=== PATIENT | female | born 1945 | race African-American/Black ===

== ENCOUNTER 2017-01-04 03:34 | Inpatient (IN) | payer MEDICARE, OTHER ==
[~2017-01-04] VITALS: Ht 157.5 cm; Wt 83.9 kg
[~2017-01-04 03:34] MED LIST: ALEN70TA3 PO; AMLO10TA2 PO; CETIRIZINE PO; HYDR-965 PO; IBUPROFEN PO; NAPR220C4 PO; POLY255P PO; POTA20TA4 PO
[2017-01-04] MEDS ORDERED: ASPIRIN 325 MG TABLET PO ONE (04:00)
[2017-01-04] MEDS ORDERED: ONDANSETRON PF 4 MG/2 ML VIAL. IV PRN (04:00)
[2017-01-04] MEDS ORDERED: ACETAMINOPHEN 325 MG TABLET. PO PRN (04:00)
[2017-01-04] MEDS ORDERED: NITROGLYCERIN SUBLINGUAL 0.4 MG BOTTLE OF 25. SL PRN (04:00)
--- NOTE | 2017-01-04 04:00 | PHYS DOC ---
Past Medical History Past Medical History: GERD, Hypertension Additional Past Medical Histor: low potassium Past Surgical History: Hysterectomy, Other Additional Past Surgical Histo: exploratory abdominal surgery Alcohol Use: None Drug Use: None Adult General Chief Complaint Chief Complaint: CHEST PAIN [facility] HPI 71-year-old female woke around 0130 hrs. with significant left upper chest pain that does radiate into her back somewhat. She rates it a 6 out of 10. She is in no acute distress. She states the last time she had symptoms similar to this was back in 2001 in which she states she did have a heart catheterization at that time but did not have any cardiac intervention. She states she has history of hypertension but no other major medical problems that she is aware of. She denies any history of heart disease. She denies any shortness of breath. She denies any nausea or vomiting. She denies any dizziness or lightheadedness. She denies any diaphoresis. Review of Systems Review of Systems Constitutional: Denies fever or chills [] Eyes: Denies change in visual acuity, redness, or eye pain [] HENT: Denies nasal congestion or sore throat [] Respiratory: Denies cough or shortness of breath [] Cardiovascular: No additional information not addressed in HPI [] GI: Denies abdominal pain, nausea, vomiting, bloody stools or diarrhea [] : Denies dysuria or hematuria [] Musculoskeletal: Denies back pain or joint pain [] Integument: Denies rash or skin lesions [] Neurologic: Denies headache, focal weakness or sensory changes [] Endocrine: Denies polyuria or polydipsia [] Current Medications Current Medications Current Medications Medications (Trade) Dose Ordered Sig/[facility] Start Time Stop Time Status Last Admin Dose Admin Acetaminophen (Tylenol) 650 mg PRN Q4HRS PRN 01/04/17 04:00 01/05/17 03:59 Aspirin (Jan Aspirin) 325 mg 1X ONCE 01/04/17 04:00 01/04/17 04:02 DC 01/04/17 04:21 325 MG Nitroglycerin (Nitrostat) 0.4 mg PRN Q5MIN PRN 01/04/17 04:00 01/04/17 04:21 0.4 MG Ondansetron HCl (Zofran) 4 mg PRN Q8HRS PRN 01/04/17 04:00 01/05/17 03:59 2/24/17 04:20 4 MG Allergies Allergies Allergies Coded Allergies Type Severity Reaction Last Updated Verified EVE Inhibitors Allergy Severe SWELLING ON FACE /THROAT 05/17/15 Yes codeine Adverse Reaction Intermediate nausea/vomitting 05/17/15 Yes Physical Exam Physical Exam Constitutional: Well developed, well nourished, no acute distress, non-toxic appearance. [] HENT: Normocephalic, atraumatic, bilateral external ears normal, oropharynx moist, no oral exudates, nose normal. [] Eyes: PERRLA, EOMI, conjunctiva normal, no discharge. [] Neck: Normal range of motion, no tenderness, supple, no stridor. [] Cardiovascular:Heart rate regular rhythm, no murmur [] Lungs & Thorax: Bilateral breath sounds clear to auscultation [] Abdomen: Bowel sounds normal, soft, no tenderness, no masses, no pulsatile masses. [] Skin: Warm, dry, no erythema, no rash. [] Back: No tenderness, no CVA tenderness. [] Extremities: No tenderness, no cyanosis, no clubbing, ROM intact, no edema. [] Neurologic: Alert and oriented X 3, normal motor function, normal sensory function, no focal deficits noted. [] Psychologic: Affect normal, judgement normal, mood normal. [] Current Patient Data Vital Signs Vital Signs Date Time Temp Pulse Resp B/P Pulse Ox O2 Delivery O2 Flow Rate FiO2 01/04/17 04:21 55 137/67 01/04/17 03:39 97.7 16 98 Room Air 97.7 Lab Values Laboratory Tests Test 01/04/17 04:05 White Blood Count 5.7x10^3/uL (4.0-11.0) Red Blood Count 4.95x10^6/uL (3.50-5.40) Hemoglobin 13.1g/dL (12.0-15.5) Hematocrit 40.6% (36.0-47.0) Mean Corpuscular Volume 82fL (79-100) Mean Corpuscular Hemoglobin 27pg (25-35) Mean Corpuscular Hemoglobin Concent 32g/dL (31-37) Red Cell Distribution Width 14.8% (11.5-14.5) H Platelet Count 269x10^3/uL (140-400) Neutrophils (%) (Auto) 53% (31-73) Lymphocytes (%) (Auto) 34% (24-48) Monocytes (%) (Auto) 10% (0-9) H Eosinophils (%) (Auto) 2% (0-3) Basophils (%) (Auto) 1% (0-3) Neutrophils # (Auto) 3.0x10^3uL (1.8-7.7) Lymphocytes # (Auto) 2.0x10^3/uL (1.0-4.8) Monocytes # (Auto) 0.6x10^3/uL (0.0-1.1) Eosinophils # (Auto) 0.1x10^3/uL (0.0-0.7) Basophils # (Auto) 0.1x10^3/uL (0.0-0.2) Sodium Level 145mmol/L (136-145) Potassium Level 3.7mmol/L (3.5-5.1) Chloride Level 107mmol/L (98-107) Carbon Dioxide Level 29mmol/L (21-32) Anion Gap 9 (6-14) Blood Urea Nitrogen 14mg/dL (7-20) Creatinine 0.9mg/dL (0.6-1.0) Estimated GFR (Cockcroft-Gault) 74.5 Glucose Level 100mg/dL (70-99) H Calcium Level 9.8mg/dL (8.5-10.1) Troponin I Quantitative < 0.017ng/mL (0.000-0.055) Laboratory Tests 01/04/17 04:05 Laboratory Tests 01/04/17 04:05 EKG EKG EKG as interpreted by me shows a sinus rhythm with a rate of 59 bpm. There are some T-wave inversions seen in V2 and V3 but no other obvious findings are seen. Radiology/Procedures Radiology/Procedures One view of the chest as interpreted by me does not reveal an acute cardiopulmonary process. Course & Med Decision Making Course & Med Decision Making Pertinent Labs and Imaging studies reviewed. (See chart for details) This 71-year-old female with ongoing chest pain will be given a sublingual nitroglycerin and will be admitted to the hospital for further observation and treatment. I will discuss the case with Dr. James in place cardiology consult. Her EKG at this time does not reveal any obvious signs of ischemia. Her chest x- ray is unremarkable. She is in no acute distress. A full laboratory workup including a set of cardiac enzymes will be obtained. Her laboratory workup is unremarkable including the first set of cardiac enzymes. Patient feels slight improvement after nitroglycerin dose. She was admitted without incident. Dragon Disclaimer Dragon Disclaimer This electronic medical record was generated, in whole or in part, using a voice recognition dictation system. Departure Departure Impression: Primary Impression: Chest pain Disposition: ADMITTED INPATIENT Admitting Physician: Korey James Condition: STABLE Referrals: JT KATZ MD (PCP) THADDEUS HILLMAN DO Jan 04, 2017 04:00
[2017-01-04 04:15] LABS: BASO # 0.1 x10^3/uL (0.0-0.2); BASO % 1 % (0-3); EOS % 2 % (0-3); HEMATOCRIT 40.6 % (36.0-47.0); HEMOGLOBIN 13.1 g/dL (12.0-15.5); LYMPH % 34 % (24-48); MEAN CORPUSCULAR HEMOGLOBIN 27 pg (25-35); MEAN CORPUSCULAR HGB CONC 32 g/dL (31-37); MEAN CORPUSCULAR VOLUME 82 fL (79-100); MONO % 10 % (0-9); NEUT % 53 % (31-73); PLATELET COUNT 269 x10^3/uL (140-400); RED BLOOD COUNT 4.95 x10^6/uL (3.50-5.40); RED CELL DISTRIBUTION WIDTH 14.8 % (11.5-14.5); WHITE BLOOD COUNT 5.7 x10^3/uL (4.0-11.0)
[2017-01-04 04:24] LABS: CALCIUM 9.8 mg/dL (8.5-10.1); CREATININE 0.9 mg/dL (0.6-1.0); GFR 74.5; POTASSIUM 3.7 mmol/L (3.5-5.1)
--- NOTE | 2017-01-04 04:55 | ACF ---
Admit Criteria Forms Admit Criteria Forms Admit Criteria Forms CARDIOLOGY GRG Clinical Indications for Admission to Inpatient Care ( Place 'X' for any and all applicable criteria): Hospital admission is needed for appropriate care of the patient because of ANY ONE of the following (1): [ ] I. Hemodynamic instability as indicated by ALL of the following (1)(2)(3) (4)(5) [ ]a) Vital signs or other findings not as expected for chronic patient condition or baseline [ ]b) Instability indicated by ANY ONE of the following: [ ]i) Hypotension [ ]ii) Symptomatic Tachycardia unresponsive to treatment ( e.g., analgesia, fluids, sedation as indicated) [ ]iii) Inadequate perfusion indicated by ANY ONE of the following: [ ] 1) Lactic acidosis (> 2 mmol/L) [ ] 2) New abnormal capillary refill (> 3 seconds) [ ] 3) Reduced urine output [ ] 4) New altered mental status [ ]iv) Orthostatic vital sign changes unresponsive to treatment (e.g., fluids) [ ]v) IV inotropic or vasopressor medication required to maintain adequate blood pressure or perfusion [ ] II. Severe heart failure as indicated by ANY ONE of the following(17)(18) [ ]a) Respiratory distress [ ]b) Hypotension [ ]c) Anasarca (refractory to outpatient therapy) [ ]d) Cardiac arrhythmias of immediate concern [ ]e) Myocardial ischemia [ ] III. Cardiac arrhythmias or findings of immediate concern indicated by ANY ONE of the following (19)(20): [ ] a) Heart rhythms that are inherently dangerous or unstable indicated by ANY ONE of the following (21)(22)(23): [ ] i) Resuscitated ventricular fibrillation or cardiac arrest [ ] ii) Ventricular escape rhythm [ ] iii) Sustained ventricular tachycardia (30 seconds or more of ventricular rhythm at greater than 100 beats per minute) [ ] iv) Nonsustained ventricular tachycardia and ANY ONE of the following: [ ] 1) Suspected cardiac ischemia as cause or consequence of ventricular tachycardia [ ] 2) In setting of acute myocarditis [ ] b) Unstable cardiac conduction defects indicated by ANY ONE of the following(23)(24)(25) [ ] i) Type II second-degree atrioventricular block [ ]ii) Third-degree atrioventricular block [ ]iii) New-onset left bundle branch block with suspected myocardial ischemia [ ]c) Any heart rhythm and ANY ONE of the following (21)(22)(26)(27) (28) [ ] i) Continuous long-term ECG monitoring needed (e.g., initiation of drug requiring monitoring for more than 24 hours) [ ] ii) Patient has automatic implanted cardioverter defibrillator that is repeatedly firing, malfunctioning, or in need of immediate adjustment of settings beyond the scope of ambulatory or observation care [ ]d) Heart rhythms of concern due to ANY ONE of the following: [ ] i) Hypotension [ ] ii) Respiratory distress [ ] iii) Association with other significant symptoms (e.g., bradycardia with syncope or ongoing dizziness, supraventricular tachycardia with chest pain (14)(15)(17) [ ] IV. Monitoring for cardiac contusion beyond the scope of observation care needed [A](30)(31)(32) [ ] V. Surgical or device complication (e.g., valve replacement complication , pacemaker dysfunction) (35)(41)(44)(45)(46) [ ] . Inpatient palliative care needed. [B](49) Also use Inpatient Palliative Care Criteria [ ] VII. Nonbacterial thrombotic (marantic) endocarditis (36)(43)(47)(48) [X] VIII. Cardiology condition, symptom, or finding for which emergency and observation care has failed or are not considered appropriate. [ ] IX. Acute valvular disease requiring inpatient as indicated by ANY ONE of the following (41) [ ]a) Acute valvular regurgitation (42) [ ]b) Noninfectious valvulitis (43) [ ]c) Obstructive valve thrombosis [ ]d) Paravalvular leak [ ]e) Other significant valvular disorder remaining after emergency or observation level of care (as appropriate) [ ]X. Pericardial disease requiring inpatient treatment as indicated by ANY ONE of the following (33)(34)(35)(36)(37) [ ]a) Suspected tamponade (38)(39)(40) [ ]b) Hemopericardium [ ]c) Other significant pericardial disorder remaining after emergency or observation level of care (as appropriate) [ ] XI. Cardiac ischemia beyond scope of emergency and observation care. [ ] XII. Hypertension requiring inpatient treatment as indicated by ANY ONE of the following (6)(7)(8) [ ]a) SBP greater than 220 mm Hg or DBP greater than 120 mmHg despite treatment [ ]b) SBP greater than 140 mm Hg or DBP greater than 100 mm Hg with evidence of acute end organ damage as indicated by ANY ONE of the following [ ] i) Encephalopathy [ ] ii) Acute renal failure as indicated by new onset of ANY ONE of the following (9)(10)(11)(12)(13) [ ]1) 3-fold rise in serum creatinine from baseline [ ]2) Serum creatinine greater than 4 mg/dL ( 354 micromoles/L) with acute rise greater than 0.5 mg/dL (44.2 micromoles/L) [ ]3) Reduction of more than 75% in estimated glomerular filtration rate from baseline [ ]4) Estimated glomerular filtration rate less than 35 mL/min/1.73m2 (0.59 mL/sec/1.73m2) in child up to 18 years of age [ ]5) Cessation of urine output indicated by ALL of the following [ ]A. Adequate volume status [ ]B. Inadequate urine output as indicated by ANY ONE of the following [ ]a. Urine output less than 0.3 mL/kg/hr for 24 hours [ ]b. Anuria (urine output less than 0.1 mL/kg/hr) for 12 hours [ ] iii) Aortic dissection [ ] iv) Myocardial Ischemia [ ] v) Left ventricular heart failure [ ]vi) Retinal Hemorrhage [ ]vii) Other significant finding [ ]c) Hypertension in child requiring inpatient treatment as indicated by ALL of the following(14)(15)(16) [ ] i) Outpatient treatment not effective, not available, or not appropriate [ ]ii) SBP or DBP greater than 95th percentile for age [ ]iii) Evidence of acute end organ damage as indicated by ANY ONE of the following [ ]1) Altered mental status [ ]2) Acute renal failure as indicated by new onset of ANY ONE of the following(9)(10)(11)(12)(13) [ ]A. 3-fold rise in serum creatinine from baseline [ ]B. Serum creatinine greater than 4 mg/dL (354 micromoles/L) with acute rise greater than 0.5 mg/dL (44.2 micromoles/L) [ ]C. Reduction of more than 75% in estimated glomerular filtration rate from baseline [ ]D. Estimated glomerular filtration rate less than 35 mL/min/1.73m2 (0.59 mL/sec/1.73m2) in child up to 18 years of age [ ]E. Cessation of urine output indicated by ALL of the following [ ]a. Adequate volume status [ ]b. Inadequate urine output as indicated by ANY ONE of the following [ ]i) Urine output less than 0.3 mL/kg/hr for 24 hours [ ]ii) Anuria ( urine output less than 0.1 mL/kg/hr) for 12 hours [ ]3) Severe headache [ ]4) Visual disturbance [ ]5) Retinal hemorrhage [ ]6) Other significant finding [ ]XIII. Complications of transplanted heart indicated by ANY ONE of the following(61): [ ]a) Acute graft rejection requiring inpatient management (eg, intravenous immunosuppression)(62)(63) [ ]b) Acute graft heart failure indicated by ANY ONE of the following(64): [ ]i) Hemodynamic instability [ ]ii) Cardiac arrhythmias of immediate concern [ ]iii) Pulmonary edema that is very severe (eg, mechanical ventilation needed, imminent or likely, need for 100% oxygen to keep oxygen saturation above 90%) [ ]iv) Pulmonary edema that is persistent as indicated by ALL of the following: [ ]1) New need for oxygen therapy to keep oxygen saturation above 90% (or increased FiO2 need from baseline) [ ]2) Has not improved sufficiently with emergency department or observation care IV diuretics or other heart failure treatments[E] [ ]v) Altered mental status that is severe or persistent [ ]vi) Increased creatinine (new on laboratory test) with reduction of more than 50% in estimated glomerular filtration rate from baseline [ ]vii) Progressively (ongoing) rising creatinine (known from past laboratory test) with reduction of more than 25% in estimated glomerular filtration rate from baseline [ ]viii) Acute renal failure [ ]ix) Acute peripheral ischemia (eg, examination shows pulseless, cool, mottled, or cyanotic extremity) [ ]x) Pulmonary artery catheter monitoring needed [ ]xi) Other sign or symptom of heart failure requiring inpatient treatment (ie, too severe or not responsive to outpatient and observation care treatment) [ ]c) Infection requiring inpatient management (eg, Hemodynamic instability, need for intravenous antimicrobial treatment)(66)(67)(68)(69)(70) [ ]d) Cardiac allograft vasculopathy requiring inpatient management ( eg evidence of cardiac ischemia)(71) [ ]e) Other complication of transplanted heart (eg, stroke, severe pulmonary hypertension, severe valvular dysfunction) requiring inpatient management(72) The original [employer] content created by [employer] has been revised. The portions of the content which have been revised are identified through the use of italic text or in bold, and [facility] has neither reviewed nor approved the modified material. All other unmodified content is copyright [employer]. Please see references footnoted in the original [employer] edition 2016 WALTER OWEN Jan 04, 2017 04:55
--- NOTE | 2017-01-04 06:31 | EKG ---
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
--- NOTE | 2017-01-04 07:22 | RAD ---
EXAM: Chest one view. HISTORY: Shortness of breath. COMPARISON: 06/23/2013. FINDINGS: A frontal view of the chest is obtained. There are no confluent infiltrates. There is no pneumothorax or pleural effusion. The heart is not enlarged. IMPRESSION: 1. No confluent infiltrates.
[2017-01-04 07:30] VITALS: BP 138/70
--- NOTE | 2017-01-04 09:18 | PDOC2 ---
CARDIAC CONSULT DATE OF CONSULT Date of Consult DATE: 01/04/17 TIME: 09:06 REASON FOR CONSULT Reason for Consult: Chest pain REFERRING PHYSICIAN Referring Physician: Vadim SOURCE Source: Chart review, Patient HISTORY OF PRESENT ILLNESS HISTORY OF PRESENT ILLNESS This is a pleasant 71 yo female admitted for complains of chest pain. This is mid chest and nonradiating and reproducible with positional changes and palpation, increased with left arm movements. Reports that his woke her up at around 0130 and has been nagging feeling since then but eventually dissipated. She took ASA as well. Reports no nausea, palpitations, SOA. She has not been having any decreased tolerance withe activity. Denies any prior injury or falls , no prior VTE, heavy lifting or significant increase in exertional activities. Denies any CAD. CVA, MVA. She did have LHC in 2001 and she was told of vasopasm but no CAD. She has HTN and she is compliant with her meds. PAST MEDICAL HISTORY Cardiovascular: HTN Pulmonary: No pertinent hx CENTRAL NERVOUS SYSTEM: Other (No pertinent history) GI: GERD Heme/Onc: No pertinent hx Psych: No pertinent hx Musculoskeletal: Osteoarthritis Rheumatologic: No pertinent hx Infectious disease: No pertinent hx ENT: No pertinent hx Renal/: No pertinent hx Endocrine: Osteopenia Dermatology: No pertinent hx PAST SURGICAL HISTORY Past Surgical History: Hysterectomy, Other (exploratory laparotomy ? could not remember the reason) FAMILY HISTORY Family History: Coronary Artery Disease (Father in his 50s and mother in her 80s) SOCIAL HISTORY Smoke: No ALCOHOL: none Drugs: None Lives: with Family CURRENT MEDICATIONS CURRENT MEDICATIONS Current Medications Medications (Trade) Dose Ordered Sig/Karlos Route PRN Reason Start Time Stop Time Status Last Admin Dose Admin Nitroglycerin (Nitrostat) 0.4 mg PRN Q5MIN PRN SL CHEST PAIN 01/04/17 04:00 01/04/17 04:21 Ondansetron HCl (Zofran) 4 mg PRN Q8HRS PRN IV NAUSEA/VOMITING 01/04/17 04:00 01/05/17 03:59 01/04/17 04:20 Aspirin (Jan Aspirin) 325 mg 1X ONCE PO 01/04/17 04:00 01/04/17 04:02 DC 01/04/17 04:21 ALLERGIES ALLERGIES: Coded Allergies: EVE Inhibitors (Verified Allergy, Severe, SWELLING ON FACE /THROAT, 05/17/15 ) codeine (Verified Adverse Reaction, Intermediate, nausea/vomitting, 05/17/15 ) ROS Review of System 14 point ROS evaluated with pertinent positives noted per HPI PHYSICAL EXAM General: Alert, Oriented X3, Cooperative, No acute distress HEENT: Atraumatic, Mucous membr. moist/pink Lungs: Clear to auscultation, Normal air movement Heart: Regular rate, Normal S1, Normal S2, No murmurs Abdomen: Soft, No tenderness Extremities: No cyanosis, No edema Neuro: Normal speech, Sensation intact Psych/Mental Status: Mental status NL, Mood NL MUSCULOSKELETAL: Full range of motion without pain, Osteoarthritic changes both hands VITALS VITALS Vital Signs Date Time Temp Pulse Resp B/P Pulse Ox O2 Delivery O2 Flow Rate FiO2 01/04/17 05:43 57 152/73 96 Room Air 01/04/17 03:39 97.7 16 97.7 LABS Lab: Laboratory Tests Test 01/04/17 04:05 White Blood Count 5.7x10^3/uL (4.0-11.0) Red Blood Count 4.95x10^6/uL (3.50-5.40) Hemoglobin 13.1g/dL (12.0-15.5) Hematocrit 40.6% (36.0-47.0) Mean Corpuscular Volume 82fL (79-100) Mean Corpuscular Hemoglobin 27pg (25-35) Mean Corpuscular Hemoglobin Concent 32g/dL (31-37) Red Cell Distribution Width 14.8% (11.5-14.5) Platelet Count 269x10^3/uL (140-400) Neutrophils (%) (Auto) 53% (31-73) Lymphocytes (%) (Auto) 34% (24-48) Monocytes (%) (Auto) 10% (0-9) Eosinophils (%) (Auto) 2% (0-3) Basophils (%) (Auto) 1% (0-3) Neutrophils # (Auto) 3.0x10^3uL (1.8-7.7) Lymphocytes # (Auto) 2.0x10^3/uL (1.0-4.8) Monocytes # (Auto) 0.6x10^3/uL (0.0-1.1) Eosinophils # (Auto) 0.1x10^3/uL (0.0-0.7) Basophils # (Auto) 0.1x10^3/uL (0.0-0.2) Sodium Level 145mmol/L (136-145) Potassium Level 3.7mmol/L (3.5-5.1) Chloride Level 107mmol/L (98-107) Carbon Dioxide Level 29mmol/L (21-32) Anion Gap 9 (6-14) Blood Urea Nitrogen 14mg/dL (7-20) Creatinine 0.9mg/dL (0.6-1.0) Estimated GFR (Cockcroft-Gault) 74.5 Glucose Level 100mg/dL (70-99) Calcium Level 9.8mg/dL (8.5-10.1) Troponin I Quantitative < 0.017ng/mL (0.000-0.055) ASSESSMENT/PLAN ASSESSMENT/PLAN 1. Atypical CP: suspect MSK. 2. Accelerated HTN: much better now. elevation likely from anxiety Recommendations 1. Repeat troponin. Obtain TSH, lipid panel 2. EKG SB with no significant changes by comparison. TTE today. If unremarkable then no further cardiac testing. 3. Continue with home amlodipine and start daily ECASA 81 mg. Problems: PILI DEL VALLE APRN Jan 04, 2017 09:18
[2017-01-04 10:03] LABS: MAGNESIUM 2.2 mg/dL (1.8-2.4)
[2017-01-04 10:09] LABS: CHOLESTEROL/HDL RATIO 3.1
[2017-01-04 11:30] VITALS: BP 140/73
--- NOTE | 2017-01-04 12:28 | PDOC1 ---
History and Physical Past Medical History Cardiovascular: HTN Pulmonary: No pertinent hx CENTRAL NERVOUS SYSTEM: Other (No pertinent history) GI: GERD Heme/Onc: No pertinent hx Psych: No pertinent hx Rheumatologic: No pertinent hx Infectious disease: No pertinent hx ENT: No pertinent hx Renal/: No pertinent hx Endocrine: Osteopenia Dermatology: No pertinent hx Past Surgical History Past Surgical History: Hysterectomy, Other (exploratory laparotomy ? could not remember the reason) Family History Family History: Coronary Artery Disease (Father in his 50s and mother in her 80s) Social History Smoke: No ALCOHOL: none Drugs: None Current Problem List Problem List Problems Medical Problems: (1) Chest pain Status: Acute Current Medications Current Medications Current Medications Medications (Trade) Dose Ordered Sig/Karlos Start Time Stop Time Status Last Admin Dose Admin Acetaminophen (Tylenol) 650 mg PRN Q4HRS PRN 01/04/17 04:00 01/05/17 03:59 Amlodipine Besylate (Norvasc) 10 mg DAILY 01/05/17 09:00 UNV Aspirin (Jan Aspirin) 325 mg 1X ONCE 01/04/17 04:00 01/04/17 04:02 DC 01/04/17 04:21 325 MG Nitroglycerin (Nitrostat) 0.4 mg PRN Q5MIN PRN 01/04/17 04:00 01/04/17 04:21 0.4 MG Non-Formulary Medication 1 tab WEEKLY 01/11/17 09:00 UNV Ondansetron HCl (Zofran) 4 mg PRN Q8HRS PRN 01/04/17 04:00 01/05/17 03:59 01/04/17 04:20 4 MG Potassium Chloride (Klor-Con) 20 meq BID 01/04/17 21:00 UNV Allergies Allergies Allergies Coded Allergies Type Severity Reaction Last Updated Verified EVE Inhibitors Allergy Severe SWELLING ON FACE /THROAT 05/17/15 Yes codeine Adverse Reaction Intermediate nausea/vomitting 05/17/15 Yes ROS Review of System CONSTITUTIONAL: No fever or chills EYES: No recent changes SKIN: No rash or itching CARDIOVASCULAR: Chest pain, NO syncope, palpitations, or edema RESPIRATORY: No SOB or cough GASTROINTESTINAL: No nausea, vomiting or abdominal pain NEUROLOGICAL: No headaches or weakness ENDOCRINE: No cold or heat intolerance GENITOURINARY: No urgency or frequency of urination MUSCULOSKELETAL: No back pain or joint pain LYMPHATICS: No enlarged lymph nodes PSYCHIATRIC: No anxiety or depression Physical Exam Physical Exam GEN.: No apparent distress. Alert and oriented. HEENT: Head is normocephalic, atraumatic NECK: Supple. LUNGS: Clear to auscultation. HEART: RRR, S1, S2 present. Peripheral pulses intact. Left Chest tenderness. ABDOMEN: Soft, nontender. Positive bowel sounds. EXTREMITIES: Without any cyanosis. NEUROLOGIC: Normal speech, normal tone PSYCHIATRIC: Normal affect, normal mood. SKIN: No ulcerations Vitals Vitals Vital Signs Date Time Temp Pulse Resp B/P Pulse Ox O2 Delivery O2 Flow Rate FiO2 01/04/17 09:26 Room Air 01/04/17 07:30 97.5 57 18 138/70 98 97.5 Labs Labs Laboratory Tests Test 01/04/17 04:05 01/04/17 09:50 White Blood Count 5.7x10^3/uL (4.0-11.0) Red Blood Count 4.95x10^6/uL (3.50-5.40) Hemoglobin 13.1g/dL (12.0-15.5) Hematocrit 40.6% (36.0-47.0) Mean Corpuscular Volume 82fL (79-100) Mean Corpuscular Hemoglobin 27pg (25-35) Mean Corpuscular Hemoglobin Concent 32g/dL (31-37) Red Cell Distribution Width 14.8% (11.5-14.5) Platelet Count 269x10^3/uL (140-400) Neutrophils (%) (Auto) 53% (31-73) Lymphocytes (%) (Auto) 34% (24-48) Monocytes (%) (Auto) 10% (0-9) Eosinophils (%) (Auto) 2% (0-3) Basophils (%) (Auto) 1% (0-3) Neutrophils # (Auto) 3.0x10^3uL (1.8-7.7) Lymphocytes # (Auto) 2.0x10^3/uL (1.0-4.8) Monocytes # (Auto) 0.6x10^3/uL (0.0-1.1) Eosinophils # (Auto) 0.1x10^3/uL (0.0-0.7) Basophils # (Auto) 0.1x10^3/uL (0.0-0.2) Sodium Level 145mmol/L (136-145) Potassium Level 3.7mmol/L (3.5-5.1) Chloride Level 107mmol/L (98-107) Carbon Dioxide Level 29mmol/L (21-32) Anion Gap 9 (6-14) Blood Urea Nitrogen 14mg/dL (7-20) Creatinine 0.9mg/dL (0.6-1.0) Estimated GFR (Cockcroft-Gault) 74.5 Glucose Level 100mg/dL (70-99) Calcium Level 9.8mg/dL (8.5-10.1) Magnesium Level 2.2mg/dL (1.8-2.4) Troponin I Quantitative < 0.017ng/mL (0.000-0.055) < 0.017ng/mL (0.000-0.055) Triglycerides Level 65mg/dL (0-150) Cholesterol Level 216mg/dL (0-200) LDL Cholesterol, Calculated 134mg/dL (0-100) VLDL Cholesterol, Calculated 13mg/dL (0-40) HDL Cholesterol 69mg/dL (40-60) Cholesterol/HDL Ratio 3.1 Thyroid Stimulating Hormone (TSH) 3.190uIU/mL (0.358-3.74) Laboratory Tests Test 01/04/17 04:05 01/04/17 09:50 White Blood Count 5.7x10^3/uL (4.0-11.0) Red Blood Count 4.95x10^6/uL (3.50-5.40) Hemoglobin 13.1g/dL (12.0-15.5) Hematocrit 40.6% (36.0-47.0) Mean Corpuscular Volume 82fL (79-100) Mean Corpuscular Hemoglobin 27pg (25-35) Mean Corpuscular Hemoglobin Concent 32g/dL (31-37) Red Cell Distribution Width 14.8% (11.5-14.5) Platelet Count 269x10^3/uL (140-400) Neutrophils (%) (Auto) 53% (31-73) Lymphocytes (%) (Auto) 34% (24-48) Monocytes (%) (Auto) 10% (0-9) Eosinophils (%) (Auto) 2% (0-3) Basophils (%) (Auto) 1% (0-3) Neutrophils # (Auto) 3.0x10^3uL (1.8-7.7) Lymphocytes # (Auto) 2.0x10^3/uL (1.0-4.8) Monocytes # (Auto) 0.6x10^3/uL (0.0-1.1) Eosinophils # (Auto) 0.1x10^3/uL (0.0-0.7) Basophils # (Auto) 0.1x10^3/uL (0.0-0.2) Sodium Level 145mmol/L (136-145) Potassium Level 3.7mmol/L (3.5-5.1) Chloride Level 107mmol/L (98-107) Carbon Dioxide Level 29mmol/L (21-32) Anion Gap 9 (6-14) Blood Urea Nitrogen 14mg/dL (7-20) Creatinine 0.9mg/dL (0.6-1.0) Estimated GFR (Cockcroft-Gault) 74.5 Glucose Level 100mg/dL (70-99) Calcium Level 9.8mg/dL (8.5-10.1) Magnesium Level 2.2mg/dL (1.8-2.4) Troponin I Quantitative < 0.017ng/mL (0.000-0.055) < 0.017ng/mL (0.000-0.055) Triglycerides Level 65mg/dL (0-150) Cholesterol Level 216mg/dL (0-200) LDL Cholesterol, Calculated 134mg/dL (0-100) VLDL Cholesterol, Calculated 13mg/dL (0-40) HDL Cholesterol 69mg/dL (40-60) Cholesterol/HDL Ratio 3.1 Thyroid Stimulating Hormone (TSH) 3.190uIU/mL (0.358-3.74) VTE Prophylaxis Ordered VTE Prophylaxis Devices: No VTE Pharmacological Prophylaxi: No JACKSON MALAGON MD Jan 04, 2017 12:28
[2017-01-04] MEDS ORDERED: AMLODIPINE BESYLATE 10 MG TABLET PO SCH (13:00)
--- NOTE | 2017-01-04 14:00 | CARD ---
APPROVED REPORT EXAM: Two-dimensional and M-mode echocardiogram with Doppler and color Doppler. Other Information Quality : Fair INDICATION Chest Pain 2D DIMENSIONS RVDd2.7 (2.9-3.5cm)Left Atrium(2D)2.8 (1.6-4.0cm) IVSd1.0 (0.7-1.1cm)Aortic Root(2D)3.1 (2.0-3.7cm) LVDd4.9 (3.9-5.9cm)LVOT Diameter2.0 (1.8-2.4cm) PWd1.1 (0.7-1.1cm)LVDs3.0 (2.5-4.0cm) FS (%) 30.0 %SV78.1 ml LVEF(%)60.0 (>50%) Aortic Valve AoV Peak Zana.99.6cm/sAoV VTI19.2cm AO Peak GR.4.0mmHgLVOT Peak Zana.64.3cm/s LVOT VTI 19.70cmAO Mean GR.2mmHg CHESTER (VMAX)2.39pv7PQC (VTI)3.38cm2 Mitral Valve MV E Echijuzh53.2cm/sMV DECEL GUUP337ca MV A Xocbvoxc18.6cm/sMV VTW480dg E/A Ratio0.7MVA (PHT)2.03cm2 TDI E/Lateral E'7.3E/Medial E'10.0 Tricuspid Valve TR P. Epulyfms607kj/sRAP TJRVVZCL6rfMx TR Peak Gr.61afIeRKER35qeZw Pulmonary Vein S1 Wygvrnex01.1cm/sD2 Qabishdu81.0cm/s PVa anihoeab444msrj LEFT VENTRICLE The left ventricle is normal size. There is normal left ventricular wall thickness. The left ventricu lar systolic function is normal. The Ejection Fraction is 55-60%. There is normal LV segmental wall m otion. Transmitral Doppler flow pattern is Grade I-abnormal relaxation pattern. RIGHT VENTRICLE The right ventricle is normal size. The right ventricular systolic function is normal. ATRIA The left atrium size is normal. The right atrium size is normal. The interatrial septum is intact wit h no evidence for an atrial septal defect or patent foramen ovale as noted on 2-D or Doppler imaging. AORTIC VALVE The aortic valve is calcified but opens well. Doppler and Color Flow revealed trace to mild aortic re gurgitation. There is no significant aortic valvular stenosis. MITRAL VALVE The mitral valve is normal in structure and function. There is no evidence of mitral valve prolapse. There is no mitral valve stenosis. Doppler and Color Flow revealed no mitral valve regurgitation note d. TRICUSPID VALVE The tricuspid valve is normal in structure and function. Doppler and Color Flow revealed mild tricusp id regurgitation. The PA pressure was estimated at 27 mmHg. There is no tricuspid valve stenosis. PULMONIC VALVE The pulmonary valve is normal in structure and function. Doppler and Color Flow revealed no pulmonic valvular regurgitation. There is no pulmonic valvular stenosis. GREAT VESSELS The aortic root is normal in size. The ascending aorta is normal in size. The IVC is normal in size a nd collapses >50% with inspiration. PERICARDIAL EFFUSION There is no evidence of significant pericardial effusion. Critical Notification Critical Value: No <Conclusion> The left ventricular systolic function is normal. The Ejection Fraction is 55-60%. There is normal LV segmental wall motion. Transmitral Doppler flow pattern is Grade I-abnormal relaxation pattern. Trace to mild aortic regurgitation. Mild tricuspid regurgitation. The PA pressure was estimated at 27 mmHg. There is no evidence of significant pericardial effusion.
[2017-01-04 15:23] VITALS: BP 126/67
[2017-01-04] MEDS ORDERED: ASPI-482 PO (15:36)
[2017-01-04] MEDS ORDERED: ATOR20TA PO (15:36)
[2017-01-04] MEDS ORDERED: POTASSIUM CHLORIDE 20 MEQ TABLET.ER. PO SCH (17:00)
[2017-01-04] MEDS ORDERED: ATORVASTATIN CALCIUM 20 MG TABLET PO SCH (21:00)
--- NOTE | 2017-01-04 23:13 | DS ---
DATE OF DISCHARGE: 01/04/2017 CHIEF COMPLAINT: Chest pain. 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 There is not any radiation or nausea or vomiting or palpitations or diaphoresis. She had a stress test in the past. As per the patient, it was normal. She was admitted to the hospital to rule out ACS. At the time of my examination this morning, the patient denies any active chest pain. She is resting comfortably. PAST MEDICAL HISTORY AND REVIEW OF SYSTEMS: Please see electronic H and P. LABORATORY FINDINGS: Troponin 3 sets negative. BMP within normal range. CBC within normal range. Lipid panel, cholesterol 216, LDL is 134, VLDL is 13, HDL is 69. TSH is 3.190. ASSESSMENT AND PLAN: 1. Chest pain in an adult with prior history of coronary artery disease in the family. 2. Hypertension. PLAN: She has been admitted to rule out ACS, and 3 sets of electrocardiograms and echocardiograms have been ordered and cardiac consult. The patient did not have any other risk factors for PE or aortic dissection. BRIEF HOSPITAL COURSE: She has been admitted and monitored in telemetry, and 3 sets of troponins withdrawn, which were negative, and clinically the patient is chest pain free, and she has chest tenderness on examination and had evaluation by Cardiology, declared that the patient has noncardiac chest pain, most likely musculoskeletal. DISCHARGE DISPOSITION: Home. DISCHARGE CONDITION: Stable. DISCHARGE MEDICATIONS: Continue current medications. She has been recommended to do aggressive diet management for lipid control. DIET: Low fat diet and cardiac diet. DISPOSITION: Home. Total time spent for exam and discharge is 45 minutes. JACKSON MALAGON MD DR: ESTIVEN/aileen JOB#: [id number] / [id number]
[2017-01-11] MEDS ORDERED: NON FORMULARY ITEM (Alendronate Sodium (Fosamax) 1 TAB) PO SCH (09:00)
== END 2017-01-04 18:00 | disposition home or self-care (01) | DRG 313 ==
LOC: ER 03:34 → 2 SOUTH 04:00
PROVIDERS: ADMIT Internal Medicine; ATTEND Internal Medicine
DX: R07.89 Other chest pain (principal); K21.9 Gastro-esophageal reflux disease without esophagitis; I10 Essential (primary) hypertension; F41.9 Anxiety disorder, unspecified; M85.80 Other specified disorders of bone density and structure, unspecified site; M19.90 Unspecified osteoarthritis, unspecified site; Z79.82 Long term (current) use of aspirin; Z82.49 Family history of ischemic heart disease and other diseases of the circulatory system; Z90.710 Acquired absence of both cervix and uterus; Z88.6 Allergy status to analgesic agent; Z88.8 Allergy status to other drugs, medicaments and biological substances
CPT/HCPCS: 36415; 71010; 80048; 80061; 83735; 84443; 84484; 85027; 93005; 93306; 96374; J2405; 99285-25

== ENCOUNTER → 2017-09-23 | Outpatient (CLI) | payer MEDICARE, OTHER ==
[~2017-09-23] MED LIST changes: +ASPI-482 PO; +ATOR20TA PO
--- NOTE | 2017-09-23 13:22 | RAD ---
DATE: 09/23/2017 EXAM: DIGITAL SCREEN BILAT W/CAD HISTORY: Routine screening COMPARISON: 09/21/2016 This study was interpreted with the benefit of Computerized Aided Detection (CAD). The breast parenchyma is primarily fatty replaced. Breast parenchyma level density A. FINDINGS: No new or enlarging breast densities are seen. No suspicious microcalcifications are evident. IMPRESSION: Stable mammograms without evidence of malignancy. BI-RADS CATEGORY: 1 NEGATIVE RECOMMENDED FOLLOW-UP: 12M 12 MONTH FOLLOW-UP PQRS compliance statement: Patient information was entered into a reminder system with a target due date for the next mammogram. Mammography is a sensitive method for finding small breast cancers, but it does not detect them all and is not a substitute for careful clinical examination. A negative mammogram does not negate a clinically suspicious finding and should not result in delay in biopsying a clinically suspicious abnormality. "Our facility is accredited by the [employer] Mammography Program."
== END | disposition home or self-care (01) ==
LOC: MAMMO 07:52
PROVIDERS: ATTEND Family Medicine
DX: Z12.31 Encounter for screening mammogram for malignant neoplasm of breast (principal)
CPT/HCPCS: G0202; 77067

== ENCOUNTER → 2018-09-29 | Outpatient (CLI) | payer MEDICARE, OTHER ==
[~2018-09-29] MED LIST changes: -AMLO10TA2 PO; +AMLO10TA6 PO; +HYDR-3165 PO; -HYDR-965 PO; -POLY255P PO; +POLY255P11 PO
--- NOTE | 2018-09-30 14:56 | RAD ---
DATE: 09/29/2018 EXAM: MAMMO TERRY SCREENING BILATERAL HISTORY: Routine screening. Maternal cousin diagnosed with breast cancer. COMPARISON: 09/20/2015, 09/21/2016, 09/23/2017 mammographic exams This study was interpreted with the benefit of Computerized Aided Detection (CAD). Breast Density: SCATTERED The breast parenchyma shows scattered fibroglandular densities. Breast parenchyma level B. FINDINGS: Benign calcifications are minimal. No dominant masses or distortion. No suspicious calcification clusters in the interval. Benign-appearing left axillary lymph nodes are present. IMPRESSION: No suspicious findings. BI-RADS CATEGORY: 2 BENIGN FINDING(S) RECOMMENDED FOLLOW-UP: 12M 12 MONTH FOLLOW-UP PQRS compliance statement: Patient information was entered into a reminder system with a target due date in one year for the next mammogram. Mammography is a sensitive method for finding small breast cancers, but it does not detect them all and is not a substitute for careful clinical examination. A negative mammogram does not negate a clinically suspicious finding and should not result in delay in biopsying a clinically suspicious abnormality. "Our facility is accredited by the [employer] Mammography Program."
== END | disposition home or self-care (01) ==
LOC: MAMMO 07:58
PROVIDERS: ATTEND Family Medicine
DX: Z12.31 Encounter for screening mammogram for malignant neoplasm of breast (principal)
CPT/HCPCS: 77063; 77067

== ENCOUNTER → 2019-09-30 | Outpatient (CLI) | payer MEDICARE ==
[~2019-09-30] MED LIST changes: -AMLO10TA6 PO; +AMLO10TA8 PO
--- NOTE | 2019-09-30 15:48 | RAD ---
DATE: 09/30/2019. EXAM: MAMMO TERRY SCREENING BILATERAL. HISTORY: Routine mammographic screening. COMPARISON: 09/29/2018. This study was interpreted with the benefit of Computerized Aided Detection (CAD). FINDINGS: Breast Density: FATTY The breast parenchyma is primarily fatty replaced. Breast parenchyma level density A.. There are no suspicious masses, microcalcifications or architectural distortion. The parenchymal pattern is stable. BI-RADS CATEGORY: 1 NEGATIVE. RECOMMENDED FOLLOW-UP: 12M 12 MONTH FOLLOW-UP. PQRS compliance statement: Patient information was entered into a reminder system with a target due date 09/30/2020 for the next mammogram. Mammography is a sensitive method for finding small breast cancers, but it does not detect them all and is not a substitute for careful clinical examination. A negative mammogram does not negate a clinically suspicious finding and should not result in delay in biopsying a clinically suspicious abnormality. "Our facility is accredited by the [employer] Mammography Program."
== END | disposition home or self-care (01) ==
LOC: MAMMO 07:41
PROVIDERS: ATTEND Family Medicine
DX: Z12.31 Encounter for screening mammogram for malignant neoplasm of breast (principal)
CPT/HCPCS: 77063; 77067

== ENCOUNTER 2020-02-13 07:56 | Inpatient (IN) | payer MEDICARE ==
[~2020-02-13] VITALS: Ht 157.5 cm; Wt 131.2 kg
[2020-02-13] MEDS ORDERED: IV NORMAL SALINE 500ML BAG 500 ML IV ONE (08:15)
[2020-02-13] MEDS ORDERED: ONDANSETRON PF 4 MG/2 ML VIAL. IVP ONE (08:15)
[2020-02-13 08:32] LABS: BASO % 1 % (0-3); EOS % 0 % (0-3); HEMOGLOBIN 12.4 g/dL (12.0-15.5); LYMPH # 1.1 x10^3/uL (1.0-4.8); LYMPH % 27 % (24-48); MEAN CORPUSCULAR HEMOGLOBIN 26 pg (25-35); MEAN CORPUSCULAR HGB CONC 33 g/dL (31-37); MEAN CORPUSCULAR VOLUME 81 fL (79-100); MONO # 0.3 x10^3/uL (0.0-1.1); MONO % 8 % (0-9); NEUT # 2.6 x10^3/uL (1.8-7.7); NEUT % 65 % (31-73); PLATELET COUNT 233 x10^3/uL (140-400); RED BLOOD COUNT 4.71 x10^6/uL (3.50-5.40); RED CELL DISTRIBUTION WIDTH 14.8 % (11.5-14.5)
[2020-02-13 08:55] LABS: INFLUENZA A PATIENT NEGATIVE (NEGATIVE); INFLUENZA B PATIENT NEGATIVE (NEGATIVE)
[2020-02-13 09:08] LABS: CREATININE 1.5 mg/dL (0.6-1.0); POTASSIUM 3.9 mmol/L (3.5-5.1)
[2020-02-13 09:13] LABS: ALBUMIN 3.1 g/dL (3.4-5.0); ALBUMIN/GLOBULIN RATIO 0.8 (1.0-1.7); TOTAL BILIRUBIN 0.5 mg/dL (0.2-1.0); TOTAL PROTEIN 6.9 g/dL (6.4-8.2)
--- NOTE | 2020-02-13 09:27 | RAD ---
CHEST AP ONLY Clinical Indication: Shortness of air, fever, cough Comparison: AP chest 01/04/2017. Findings: The cardiomediastinal silhouette is normal. There are mild bibasilar airspace opacities. Considerations include atelectasis or early pneumonia or asymmetric edema. There is no pneumothorax. No pleural effusion is appreciated. No acute bone abnormality. Degenerative arthropathy of the shoulders. IMPRESSION: Mild bibasilar airspace disease. Electronically signed by: Pillo Martinez MD (02/13/2020 9:24 AM) [id number]
--- NOTE | 2020-02-13 09:40 | PHYS DOC ---
Past Medical History Past Medical History: Hypertension, Other Additional Past Medical Histor: HYPOKALEMIA Past Surgical History: Hysterectomy Additional Past Surgical Histo: exploratory abdominal surgery Smoking Status: Never Smoker Alcohol Use: None Drug Use: None Adult General Chief Complaint Chief Complaint: FEVER HPI HPI Patient is a 74 year old female with recent known coronavirus exposure at local [employer] who presents with 2 weeks of generalized weakness, malaise, weakness with 24 hours of nausea vomiting and multiple loose OTC stools. Reports decreased appetite and oral intake and feeling generally weak. Reports subjective fever, denies chills sweats. No chest pain cough, sore throat, reports cramping abdominal pain. No urinary frequency urgency or dysuria[] Review of Systems Review of Systems ROS as per HPI All other systems were reviewed and found to be within normal limits, except as documented in this note. Current Medications Current Medications Current Medications Medications (Trade) Dose Ordered Sig/Karlos Start Time Stop Time Status Last Admin Dose Admin Azithromycin 250 ml @ 250 mls/hr 1X ONCE 02/13/20 11:15 02/13/20 12:14 Ceftriaxone Sodium (Rocephin) 1 gm 1X ONCE 02/13/20 11:15 02/13/20 11:16 Ondansetron HCl (Zofran) 4 mg 1X ONCE 02/13/20 08:15 02/13/20 08:18 DC 02/13/20 08:51 4 MG Sodium Chloride 500 ml @ 500 mls/hr 1X ONCE 02/13/20 08:15 02/13/20 09:14 DC 02/13/20 08:51 500 MLS/HR Allergies Allergies Allergies Coded Allergies Type Severity Reaction Last Updated Verified EVE Inhibitors Allergy Severe SWELLING ON FACE /THROAT 05/17/15 Yes codeine Adverse Reaction Intermediate nausea/vomitting 05/17/15 Yes Physical Exam Physical Exam Constitutional: Well developed, well nourished, generally weak and fatigued appearing. [] HENT: Normocephalic, atraumatic, bilateral external ears normal, nose normal. [] Eyes: PERRLA, EOMI, conjunctiva normal. [] Neck: Normal range of motion, no tenderness. [] Cardiovascular:Heart rate regular rhythm, no murmur [] Lungs & Thorax: Bilateral breath sounds clear to auscultation with diminished breath sounds bilaterally. [] Abdomen: Bowel sounds normal, soft, no tenderness. [] Skin: Warm, dry, no erythema, no rash. [] Back: No tenderness. [] Extremities: No tenderness, no edema. [] Neurologic: Alert and oriented X 3, normal motor function, normal sensory function, no focal deficits noted. [] Psychologic: Affect normal, judgement normal, mood normal. [] Current Patient Data Vital Signs Vital Signs Date Time Temp Pulse Resp B/P (MAP) Pulse Ox O2 Delivery O2 Flow Rate FiO2 02/13/20 08:05 99.3 96 22 137/66 (89) Room Air 97.0 99.3 Lab Values Laboratory Tests Test 02/13/20 08:00 02/13/20 08:50 White Blood Count 4.0 x10^3/uL (4.0-11.0) Red Blood Count 4.71 x10^6/uL (3.50-5.40) Hemoglobin 12.4 g/dL (12.0-15.5) Hematocrit 38.0 % (36.0-47.0) Mean Corpuscular Volume 81 fL (79-100) Mean Corpuscular Hemoglobin 26 pg (25-35) Mean Corpuscular Hemoglobin Concent 33 g/dL (31-37) Red Cell Distribution Width 14.8 % (11.5-14.5) H Platelet Count 233 x10^3/uL (140-400) Neutrophils (%) (Auto) 65 % (31-73) Lymphocytes (%) (Auto) 27 % (24-48) Monocytes (%) (Auto) 8 % (0-9) Eosinophils (%) (Auto) 0 % (0-3) Basophils (%) (Auto) 1 % (0-3) Neutrophils # (Auto) 2.6 x10^3/uL (1.8-7.7) Lymphocytes # (Auto) 1.1 x10^3/uL (1.0-4.8) Monocytes # (Auto) 0.3 x10^3/uL (0.0-1.1) Eosinophils # (Auto) 0.0 x10^3/uL (0.0-0.7) Basophils # (Auto) 0.0 x10^3/uL (0.0-0.2) D-Dimer (Hodan) 1.81 ug/mlFEU (0.00-0.50) H Ferritin 942 ng/mL (8-252) H Troponin I Quantitative < 0.017 ng/mL (0.000-0.055) Procalcitonin < 0.10 ng/mL (0.00-0.10) Influenza Type A Antigen Negative (NEGATIVE) Influenza Type B Antigen Negative (NEGATIVE) Sodium Level 132 mmol/L (136-145) L Potassium Level 3.9 mmol/L (3.5-5.1) Chloride Level 100 mmol/L (98-107) Carbon Dioxide Level 26 mmol/L (21-32) Anion Gap 6 (6-14) Blood Urea Nitrogen 21 mg/dL (7-20) H Creatinine 1.5 mg/dL (0.6-1.0) H Estimated GFR (Cockcroft-Gault) 41.0 BUN/Creatinine Ratio 14 (6-20) Glucose Level 104 mg/dL (70-99) H Calcium Level 8.0 mg/dL (8.5-10.1) L Total Bilirubin 0.5 mg/dL (0.2-1.0) Aspartate Amino Transferase (AST) 34 U/L (15-37) Alanine Aminotransferase (ALT) 18 U/L (14-59) Alkaline Phosphatase 52 U/L (46-116) Total Protein 6.9 g/dL (6.4-8.2) Albumin 3.1 g/dL (3.4-5.0) L Albumin/Globulin Ratio 0.8 (1.0-1.7) L Lipase 374 U/L (73-393) Laboratory Tests 02/13/20 08:00 Laboratory Tests 02/13/20 08:50 EKG EKG [] Radiology/Procedures Radiology/Procedures [Chest x-ray: Bilateral lower lobe infiltrates/atelectasis. CT Abdomen pelvis: Groundglass appearance of lower lobes concerning for multilobar pneumonia.] Course & Med Decision Making Course & Med Decision Making Pertinent Labs and Imaging studies reviewed. (See chart for details) [Patient with GI and respiratory symptoms low-grade fever with recent known, with known COVID exposure. On imaging studies really suggestive of both coronavirus infection. IV fluids antibiotics given. COVID test pending. Will admit to the hospitalist service.] Dragon Disclaimer Dragon Disclaimer This electronic medical record was generated, in whole or in part, using a voice recognition dictation system. Departure Departure Impression: Primary Impression: Pulmonary infiltrate Additional Impression: Acute kidney injury Disposition: ADMITTED INPATIENT Condition: STABLE Referrals: JT KATZ MD (PCP) Problem Qualifiers EDDIE FARLEY DO Feb 13, 2020 09:40
--- NOTE | 2020-02-13 10:48 | RAD ---
EXAM: Abdomen and pelvis CT without intravenous contrast. HISTORY: Nausea and vomiting. TECHNIQUE: Computed tomographic images of the abdomen and pelvis were obtained without contrast. Multiplanar reformatting was performed. *One or more of the following individualized dose reduction techniques were utilized for this examination: 1. Automated exposure control. 2. Adjustment of the mA and/or kV according to patient size. 3. Use of iterative reconstruction technique. COMPARISON: None. FINDINGS: Evaluation of the lower thorax demonstrates nonspecific scattered groundglass and linear opacities within the right middle lobe, lingula and bilateral lower lobes. No pleural effusion is seen. The heart is normal in size. There is a small hiatal hernia. There are multiple hypodense lesions throughout the liver, the largest of which is seen within the right hepatic lobe measuring 4.2 cm. The attenuation of the largest lesions favors a cystic etiology. There are few coarse calcifications associated with the lesions within the superior liver along the falciform ligament and the inferior right hepatic lobe. These are difficult to assess in the absence of contrast. There is no evidence of cholelithiasis or cholecystitis. The pancreas, spleen and adrenal glands are unremarkable. There is a suspected 1 cm cyst within the anterior mid zone of the left kidney. There is no nephrolithiasis. There is no hydronephrosis. There is a moderate amount of colonic stool. There is no evidence of bowel obstruction. There is no free air. There is no lymphadenopathy. The aorta is normal in caliber. There are degenerative changes involving the spine. There is no suspicious osseous lesion. IMPRESSION: 1. Multiple hypodense lesions scattered throughout the liver, the largest of which demonstrate attenuation consistent with cysts. The smaller lesions are difficult to characterize in the absence of contrast. Follow up with a liver protocol CT or MRI can be performed for better characterization. 2. Suspected tiny left renal cyst. 4. Moderate colonic stool. 5. Nonspecific groundglass and linear opacities within the right middle lobe, lingula and bilateral lower lobes. The differential includes atelectasis as well as multifocal infiltrate. Electronically signed by: Sari Knapp MD (02/13/2020 10:45 AM) [facility]
[2020-02-13] MEDS ORDERED: cefTRIAXone IV Push 1 GM VIAL. IVP ONE (11:15)
[2020-02-13] MEDS ORDERED: AZITHRMYCN 500MG IVPB FOR OMNI 250 ML IV ONE (11:15)
[2020-02-13] MEDS ORDERED: LORazepam 0.5 MG TABLET PO PRN (11:30)
[2020-02-13] MEDS ORDERED: ALBUTEROL SULFATE 2.5 MG/3 ML NEBU. NEB PRN (11:30)
[2020-02-13 11:35] LABS: BILIRUBIN,URINE NEGATIVE (NEG); CLARITY,URINE CLEAR; COLOR,URINE YELLOW; NITRITE,URINE NEGATIVE (NEG); PROTEIN,URINE NEGATIVE (NEG-TRACE)
[2020-02-13 11:36] LABS: AMORPHOUS SEDIMENT,UR PRESENT /HPF; BACTERIA,URINE 0 /HPF (0-FEW); RBC,URINE 0 /HPF (0-2); WBC,URINE 0 /HPF (0-4)
[2020-02-13] MEDS: ASPIRIN ENTERIC COATED 81 MG TABLET.DR. PO SCH (13:41)
[2020-02-13] MEDS: IV NORMAL SALINE 1000ML BAG 1,000 ML IV SCH ×2 (13:41→21:18)
[2020-02-13] MEDS: amLODIPine BESYLATE 10 MG TABLET PO SCH (13:42)
[2020-02-13] MEDS ORDERED: ERGOCALCIFEROL (VITAMIN D2) 50,000 UNIT CAPSULE. PO SCH (15:00)
[2020-02-13 15:40] VITALS: BP 132/68
[2020-02-13] MEDS: LOSARTAN POTASSIUM 50 MG TABLET. PO SCH (16:06)
[2020-02-13] MEDS: hydroCHLOROthiazide 12.5 MG CAPSULE PO SCH (16:06)
--- NOTE | 2020-02-13 17:21 | PDOC1 ---
History and Physical Date of Admission Date of Admission 02/13/2020 Identification/Chief Complaint Chief Complaint I feel sick Source Source: Chart review, Patient History of Present Illness History of Present Illness Patient is a 74 year old female who was in her usual state health until 2 weeks prior to her admission when she started developing generalized weakness malaise and overall sensation of not wellbeing. The patient apparently went to a gathering to her local [employer]astaf[employer] to pray for the current events. Most likely she got exposed to someone who may have been already infected at that time and developed symptoms not even 4 days after the encounter. He describes subjective fevers dry cough no sneezing no sinus pain no odynophagia. The patient denied pleurisy she denied diaphoresis no weight loss no inflamed lymph nodes reported. The patient did have nausea and had also loose stools reported especially over the last 24 hours prior to her visit to the emergency department. The patient has had decreased oral intake due to her symptoms and her appetite was also affected being almost no. Patient denies slurred speech she did lose consciousness approximately 1 week prior to her ER visit most likely a consequence of poor oral intake and dehydration. The patient denied lightheadedness no palpitations no chest pain has been reported the patient denies postictal period. SHe did not present seizure like activity. Due to the progressive nature of her symptoms she decided to consult today. She is being admitted for a COVID 19 rule out `` Past Medical History Cardiovascular: HTN Pulmonary: No pertinent hx CENTRAL NERVOUS SYSTEM: Other GI: GERD Heme/Onc: No pertinent hx Psych: No pertinent hx Rheumatologic: No pertinent hx Infectious disease: No pertinent hx Renal/: No pertinent hx Endocrine: Osteopenia Past Surgical History Past Surgical History: Hysterectomy, Other Family History Family History: Coronary Artery Disease Social History ALCOHOL: none Drugs: None Current Problem List Problem List Problems Medical Problems: (1) Acute kidney injury Status: Acute (2) Pulmonary infiltrate Status: Acute Current Medications Current Medications Current Medications Medications (Trade) Dose Ordered Sig/Karlos Start Time Stop Time Status Last Admin Dose Admin Acetaminophen (Tylenol) 650 mg PRN Q4HRS PRN 02/13/20 11:30 Albuterol Sulfate (Ventolin Neb Soln) 2.5 mg PRN Q4HRS PRN 02/13/20 11:30 Amlodipine Besylate (Norvasc) 10 mg DAILY 02/13/20 13:00 02/13/20 13:42 10 MG Aspirin (Ecotrin) 81 mg DAILY 02/13/20 13:00 02/13/20 13:41 81 MG Atorvastatin Calcium (Lipitor) 20 mg QHS 02/13/20 21:00 Azithromycin 250 ml @ 250 mls/hr 1X ONCE 02/13/20 11:15 02/13/20 12:14 DC 02/13/20 11:41 250 MLS/HR Ceftriaxone Sodium (Rocephin) 1 gm 1X ONCE 02/13/20 11:15 02/13/20 11:16 DC 02/13/20 11:40 1 GM Docusate Sodium (Colace) 100 mg PRN BID PRN 02/13/20 11:30 Ergocalciferol (Vitamin D2) 50,000 unit Sa 02/13/20 15:00 02/13/20 16:06 50,000 UNIT Guaifenesin (Robitussin) 200 mg PRN Q4HRS PRN 02/13/20 11:30 Hydrochlorothiazide (Microzide) 12.5 mg DAILY 02/13/20 15:00 02/13/20 16:06 12.5 MG Lorazepam (Ativan) 0.5 mg PRN Q4HRS PRN 02/13/20 11:30 Losartan Potassium (Cozaar) 100 mg DAILY 02/13/20 15:00 02/13/20 16:06 100 MG Ondansetron HCl (Zofran) 4 mg 1X ONCE 02/13/20 08:15 02/13/20 08:18 DC 02/13/20 08:51 4 MG Potassium Chloride (Klor-Con) 20 meq BID 02/13/20 21:00 Sodium Chloride 1,000 ml @ 100 mls/hr Q10H 02/13/20 11:18 02/13/20 13:41 100 MLS/HR Allergies Allergies Allergies Coded Allergies Type Severity Reaction Last Updated Verified EVE Inhibitors Allergy Severe SWELLING ON FACE /THROAT 05/17/15 Yes codeine Adverse Reaction Intermediate nausea/vomitting 05/17/15 Yes ROS Review of System CONSTITUTIONAL: +fever and malaise EYES: No recent changes SKIN: No rash or itching CARDIOVASCULAR: No chest pain, syncope, palpitations, or edema RESPIRATORY: NoSOB + cough GASTROINTESTINAL: + nausea, no vomiting or abdominal pain NEUROLOGICAL: +headaches and weakness ENDOCRINE: No cold or heat intolerance GENITOURINARY: No urgency or frequency of urination MUSCULOSKELETAL: No back pain or joint pain LYMPHATICS: No enlarged lymph nodes PSYCHIATRIC: No anxiety or depression Physical Exam Physical Exam GEN.: No apparent distress. Alert and oriented. HEENT: Head is normocephalic, atraumatic NECK: Supple. LUNGS: Clear to auscultation. HEART: RRR, S1, S2 present. Peripheral pulses intact ABDOMEN: Soft, nontender. Positive bowel sounds. EXTREMITIES: Without any cyanosis. NEUROLOGIC: Normal speech, normal tone PSYCHIATRIC: Normal affect, normal mood. SKIN: No ulcerations Vitals Vitals Vital Signs Date Time Temp Pulse Resp B/P (MAP) Pulse Ox O2 Delivery O2 Flow Rate FiO2 02/13/20 16:06 80 132/68 02/13/20 15:40 99.8 20 Room Air 99.8 02/13/20 11:35 94 02/13/20 08:05 97.0 Labs Labs Laboratory Tests Test 02/13/20 08:00 02/13/20 08:14 02/13/20 08:50 White Blood Count 4.0 x10^3/uL (4.0-11.0) Red Blood Count 4.71 x10^6/uL (3.50-5.40) Hemoglobin 12.4 g/dL (12.0-15.5) Hematocrit 38.0 % (36.0-47.0) Mean Corpuscular Volume 81 fL (79-100) Mean Corpuscular Hemoglobin 26 pg (25-35) Mean Corpuscular Hemoglobin Concent 33 g/dL (31-37) Red Cell Distribution Width 14.8 % (11.5-14.5) Platelet Count 233 x10^3/uL (140-400) Neutrophils (%) (Auto) 65 % (31-73) Lymphocytes (%) (Auto) 27 % (24-48) Monocytes (%) (Auto) 8 % (0-9) Eosinophils (%) (Auto) 0 % (0-3) Basophils (%) (Auto) 1 % (0-3) Neutrophils # (Auto) 2.6 x10^3/uL (1.8-7.7) Lymphocytes # (Auto) 1.1 x10^3/uL (1.0-4.8) Monocytes # (Auto) 0.3 x10^3/uL (0.0-1.1) Eosinophils # (Auto) 0.0 x10^3/uL (0.0-0.7) Basophils # (Auto) 0.0 x10^3/uL (0.0-0.2) D-Dimer (Hodan) 1.81 ug/mlFEU (0.00-0.50) Ferritin 942 ng/mL (8-252) Troponin I Quantitative < 0.017 ng/mL (0.000-0.055) Procalcitonin < 0.10 ng/mL (0.00-0.10) Influenza Type A Antigen Negative (NEGATIVE) Influenza Type B Antigen Negative (NEGATIVE) Urine Collection Type Unknown Urine Color Yellow Urine Clarity Clear Urine pH 6.0 (<5.0-8.0) Urine Specific [place] 1.015 (1.000-1.030) Urine Protein Negative mg/dL (NEG-TRACE) Urine Glucose (UA) Negative mg/dL (NEG) Urine Ketones (Stick) Negative mg/dL (NEG) Urine Blood Negative (NEG) Urine Nitrite Negative (NEG) Urine Bilirubin Negative (NEG) Urine Urobilinogen Dipstick 1.0 mg/dL (0.2 mg/dL) Urine Leukocyte Esterase Negative (NEG) Urine RBC 0 /HPF (0-2) Urine WBC 0 /HPF (0-4) Urine Squamous Epithelial Cells None /LPF Urine Amorphous Sediment Present /HPF Urine Bacteria 0 /HPF (0-FEW) Sodium Level 132 mmol/L (136-145) Potassium Level 3.9 mmol/L (3.5-5.1) Chloride Level 100 mmol/L (98-107) Carbon Dioxide Level 26 mmol/L (21-32) Anion Gap 6 (6-14) Blood Urea Nitrogen 21 mg/dL (7-20) Creatinine 1.5 mg/dL (0.6-1.0) Estimated GFR (Cockcroft-Gault) 41.0 BUN/Creatinine Ratio 14 (6-20) Glucose Level 104 mg/dL (70-99) Calcium Level 8.0 mg/dL (8.5-10.1) Total Bilirubin 0.5 mg/dL (0.2-1.0) Aspartate Amino Transf (AST/SGOT) 34 U/L (15-37) Alanine Aminotransferase (ALT/SGPT) 18 U/L (14-59) Alkaline Phosphatase 52 U/L (46-116) Total Protein 6.9 g/dL (6.4-8.2) Albumin 3.1 g/dL (3.4-5.0) Albumin/Globulin Ratio 0.8 (1.0-1.7) Lipase 374 U/L (73-393) Laboratory Tests Test 02/13/20 08:00 02/13/20 08:14 02/13/20 08:50 White Blood Count 4.0 x10^3/uL (4.0-11.0) Red Blood Count 4.71 x10^6/uL (3.50-5.40) Hemoglobin 12.4 g/dL (12.0-15.5) Hematocrit 38.0 % (36.0-47.0) Mean Corpuscular Volume 81 fL (79-100) Mean Corpuscular Hemoglobin 26 pg (25-35) Mean Corpuscular Hemoglobin Concent 33 g/dL (31-37) Red Cell Distribution Width 14.8 % (11.5-14.5) Platelet Count 233 x10^3/uL (140-400) Neutrophils (%) (Auto) 65 % (31-73) Lymphocytes (%) (Auto) 27 % (24-48) Monocytes (%) (Auto) 8 % (0-9) Eosinophils (%) (Auto) 0 % (0-3) Basophils (%) (Auto) 1 % (0-3) Neutrophils # (Auto) 2.6 x10^3/uL (1.8-7.7) Lymphocytes # (Auto) 1.1 x10^3/uL (1.0-4.8) Monocytes # (Auto) 0.3 x10^3/uL (0.0-1.1) Eosinophils # (Auto) 0.0 x10^3/uL (0.0-0.7) Basophils # (Auto) 0.0 x10^3/uL (0.0-0.2) D-Dimer (Hodan) 1.81 ug/mlFEU (0.00-0.50) Ferritin 942 ng/mL (8-252) Troponin I Quantitative < 0.017 ng/mL (0.000-0.055) Procalcitonin < 0.10 ng/mL (0.00-0.10) Influenza Type A Antigen Negative (NEGATIVE) Influenza Type B Antigen Negative (NEGATIVE) Urine Collection Type Unknown Urine Color Yellow Urine Clarity Clear Urine pH 6.0 (<5.0-8.0) Urine Specific [place] 1.015 (1.000-1.030) Urine Protein Negative mg/dL (NEG-TRACE) Urine Glucose (UA) Negative mg/dL (NEG) Urine Ketones (Stick) Negative mg/dL (NEG) Urine Blood Negative (NEG) Urine Nitrite Negative (NEG) Urine Bilirubin Negative (NEG) Urine Urobilinogen Dipstick 1.0 mg/dL (0.2 mg/dL) Urine Leukocyte Esterase Negative (NEG) Urine RBC 0 /HPF (0-2) Urine WBC 0 /HPF (0-4) Urine Squamous Epithelial Cells None /LPF Urine Amorphous Sediment Present /HPF Urine Bacteria 0 /HPF (0-FEW) Sodium Level 132 mmol/L (136-145) Potassium Level 3.9 mmol/L (3.5-5.1) Chloride Level 100 mmol/L (98-107) Carbon Dioxide Level 26 mmol/L (21-32) Anion Gap 6 (6-14) Blood Urea Nitrogen 21 mg/dL (7-20) Creatinine 1.5 mg/dL (0.6-1.0) Estimated GFR (Cockcroft-Gault) 41.0 BUN/Creatinine Ratio 14 (6-20) Glucose Level 104 mg/dL (70-99) Calcium Level 8.0 mg/dL (8.5-10.1) Total Bilirubin 0.5 mg/dL (0.2-1.0) Aspartate Amino Transf (AST/SGOT) 34 U/L (15-37) Alanine Aminotransferase (ALT/SGPT) 18 U/L (14-59) Alkaline Phosphatase 52 U/L (46-116) Total Protein 6.9 g/dL (6.4-8.2) Albumin 3.1 g/dL (3.4-5.0) Albumin/Globulin Ratio 0.8 (1.0-1.7) Lipase 374 U/L (73-393) VTE Prophylaxis Ordered VTE Prophylaxis Devices: No VTE Pharmacological Prophylaxi: Yes Assessment/Plan Assessment/Plan Acute viral infection, 2 weeks post exposure to a large crowd, high suspicion for COVID 19 Acute renal failure most likely vasomotor in nature Hyponatremia secondary to low effective circulatory volume Moderate dehydration Right lower lobe atelectasis, Essential hypertension History of dyslipidemia Plan: isolation as per protocol, awaiting for COVID 19 test Zithromax every 24 hours x 3 days IV fluid resuscitation resume home meds supportive and symptomatic relief of symptoms labs in am further recommendations based on clinical course. DVT prophylaxis: BOBBY Bryant MD Feb 13, 2020 17:21
[2020-02-13] MEDS: ACETAMINOPHEN 325 MG TABLET. PO PRN ×2 (17:43→19:38)
[2020-02-13 19:00] VITALS: BP 126/64
[2020-02-13] MEDS: ATORVASTATIN CALCIUM 20 MG TABLET PO SCH (20:58)
[2020-02-13] MEDS: POTASSIUM CHLORIDE 20 MEQ TABLET.ER. PO SCH (20:58)
[2020-02-13 23:00] VITALS: BP 103/49
[2020-02-14] VITALS (7 sets, daily range): BP systolic 103–144; BP diastolic 49–68
[2020-02-14] MEDS: IV NORMAL SALINE 1000ML BAG 1,000 ML IV SCH ×2 (01:00→16:39)
[2020-02-14] MEDS: hydroCHLOROthiazide 12.5 MG CAPSULE PO SCH (09:26)
[2020-02-14] MEDS: LOSARTAN POTASSIUM 50 MG TABLET. PO SCH (09:27)
[2020-02-14] MEDS: ASPIRIN ENTERIC COATED 81 MG TABLET.DR. PO SCH (09:27)
[2020-02-14] MEDS: POTASSIUM CHLORIDE 20 MEQ TABLET.ER. PO SCH ×2 (09:27→20:24)
[2020-02-14] MEDS: amLODIPine BESYLATE 10 MG TABLET PO SCH (09:28)
--- NOTE | 2020-02-14 09:41 | PDOC ---
PROGRESS NOTES Chief Complaint Chief Complaint Acute SARS-CoV-2 (COVID 19) infection - 2 weeks post exposure to a large crowd, plaquenil and azithromycin started Acute renal failure most likely vasomotor nephropathy Hyponatremia secondary to low effective circulatory volume Moderate dehydration Right lower lobe atelectasis, Essential hypertension History of dyslipidemia History of Present Illness History of Present Illness Ms Saucedo is a 74 year old female who was in her usual state health until 2 weeks prior to her admission when she started developing generalized weakness malaise and overall sensation of not wellbeing. The patient apparently went to a gathering to her local hinduism to pray for the current events. Most likely she got exposed to someone who may have been already infected at that time and developed symptoms not even 4 days after the encounter. He describes subjective fevers dry cough no sneezing no sinus pain no odynophagia. The patient denied pleurisy she denied diaphoresis no weight loss no inflamed lymph nodes reported. The patient did have nausea and had also loose stools reported especially over the last 24 hours prior to her visit to the emergency department. The patient has had decreased oral intake due to her symptoms and her appetite was also affected being almost no. Patient denies slurred speech she did lose consciousness approximately 1 week prior to her ER visit most likely a consequence of poor oral intake and dehydration. The patient denied lightheadedness no palpitations no chest pain has been reported the patient denies postictal period. SHe did not present seizure like activity. Due to the progressive nature of her symptoms she decided to consult today. She is being admitted for a COVID 19 positive pneumonia. Vitals Vitals Vital Signs Date Time Temp Pulse Resp B/P (MAP) Pulse Ox O2 Delivery O2 Flow Rate FiO2 02/14/20 09:28 64 133/52 02/14/20 07:00 99.8 18 95 Room Air 99.8 02/13/20 18:00 97.0 Physical Exam General: Alert, Cooperative Heart: Regular rate Lungs: Wheezing Abdomen: Normal bowel sounds, Soft Extremities: No clubbing, No cyanosis Skin: No rashes, No breakdown Labs LABS Laboratory Tests Test 02/13/20 10:35 02/13/20 16:30 Coronavirus (COVID-19)(PCR) See separate report Urine Random Creatinine 92.1 mg/dL (Not Establ.) Assessment and Plan Assessmemt and Plan Problems Medical Problems: (1) Acute kidney injury Status: Acute (2) Pulmonary infiltrate Status: Acute Comment Review of Relevant I have reviewed the following items angel (where applicable) has been applied. Labs Laboratory Tests Test 02/13/20 08:00 02/13/20 08:14 02/13/20 08:50 02/13/20 10:35 White Blood Count 4.0 x10^3/uL (4.0-11.0) Red Blood Count 4.71 x10^6/uL (3.50-5.40) Hemoglobin 12.4 g/dL (12.0-15.5) Hematocrit 38.0 % (36.0-47.0) Mean Corpuscular Volume 81 fL (79-100) Mean Corpuscular Hemoglobin 26 pg (25-35) Mean Corpuscular Hemoglobin Concent 33 g/dL (31-37) Red Cell Distribution Width 14.8 % (11.5-14.5) Platelet Count 233 x10^3/uL (140-400) Neutrophils (%) (Auto) 65 % (31-73) Lymphocytes (%) (Auto) 27 % (24-48) Monocytes (%) (Auto) 8 % (0-9) Eosinophils (%) (Auto) 0 % (0-3) Basophils (%) (Auto) 1 % (0-3) Neutrophils # (Auto) 2.6 x10^3/uL (1.8-7.7) Lymphocytes # (Auto) 1.1 x10^3/uL (1.0-4.8) Monocytes # (Auto) 0.3 x10^3/uL (0.0-1.1) Eosinophils # (Auto) 0.0 x10^3/uL (0.0-0.7) Basophils # (Auto) 0.0 x10^3/uL (0.0-0.2) D-Dimer (Hodan) 1.81 ug/mlFEU (0.00-0.50) Ferritin 942 ng/mL (8-252) Troponin I Quantitative < 0.017 ng/mL (0.000-0.055) Procalcitonin < 0.10 ng/mL (0.00-0.10) Influenza Type A Antigen Negative (NEGATIVE) Influenza Type B Antigen Negative (NEGATIVE) Urine Collection Type Unknown Urine Color Yellow Urine Clarity Clear Urine pH 6.0 (<5.0-8.0) Urine Specific [place] 1.015 (1.000-1.030) Urine Protein Negative mg/dL (NEG-TRACE) Urine Glucose (UA) Negative mg/dL (NEG) Urine Ketones (Stick) Negative mg/dL (NEG) Urine Blood Negative (NEG) Urine Nitrite Negative (NEG) Urine Bilirubin Negative (NEG) Urine Urobilinogen Dipstick 1.0 mg/dL (0.2 mg/dL) Urine Leukocyte Esterase Negative (NEG) Urine RBC 0 /HPF (0-2) Urine WBC 0 /HPF (0-4) Urine Squamous Epithelial Cells None /LPF Urine Amorphous Sediment Present /HPF Urine Bacteria 0 /HPF (0-FEW) Sodium Level 132 mmol/L (136-145) Potassium Level 3.9 mmol/L (3.5-5.1) Chloride Level 100 mmol/L (98-107) Carbon Dioxide Level 26 mmol/L (21-32) Anion Gap 6 (6-14) Blood Urea Nitrogen 21 mg/dL (7-20) Creatinine 1.5 mg/dL (0.6-1.0) Estimated GFR (Cockcroft-Gault) 41.0 BUN/Creatinine Ratio 14 (6-20) Glucose Level 104 mg/dL (70-99) Calcium Level 8.0 mg/dL (8.5-10.1) Total Bilirubin 0.5 mg/dL (0.2-1.0) Aspartate Amino Transf (AST/SGOT) 34 U/L (15-37) Alanine Aminotransferase (ALT/SGPT) 18 U/L (14-59) Alkaline Phosphatase 52 U/L (46-116) Total Protein 6.9 g/dL (6.4-8.2) Albumin 3.1 g/dL (3.4-5.0) Albumin/Globulin Ratio 0.8 (1.0-1.7) Lipase 374 U/L (73-393) Coronavirus (COVID-19)(PCR) See separate report Test 02/13/20 16:30 Urine Random Creatinine 92.1 mg/dL (Not Establ.) Laboratory Tests Test 02/13/20 10:35 02/13/20 16:30 Coronavirus (COVID-19)(PCR) See separate report Urine Random Creatinine 92.1 mg/dL (Not Establ.) Medications Current Medications Sodium Chloride 500 ml @ 500 mls/hr 1X ONCE IV Last administered on 02/13/20 08:51; Start 02/13/20 at 08:15; Stop 02/13/20 at 09:14; Status DC Ondansetron HCl (Zofran) 4 mg 1X ONCE IVP Last administered on 02/13/20 08:51; Start 02/13/20 at 08:15; Stop 02/13/20 at 08:18; Status DC Azithromycin 250 ml @ 250 mls/hr 1X ONCE IV Last administered on 02/13/20 11:41; Start 02/13/20 at 11:15; Stop 02/13/20 at 12:14; Status DC Ceftriaxone Sodium (Rocephin) 1 gm 1X ONCE IVP Last administered on 02/13/20at 11:40; Start 02/13/20 at 11:15; Stop 02/13/20 at 11:16; Status DC Sodium Chloride 1,000 ml @ 100 mls/hr Q10H IV Last administered on 02/14/20at 01:00; Start 02/13/20 at 11:18 Acetaminophen (Tylenol) 650 mg PRN Q4HRS PRN PO TEMP OVER 100.4F OR MILD PAIN Last administered on 02/13/20at 19:38; Start 02/13/20 at 11:30 Docusate Sodium (Colace) 100 mg PRN BID PRN PO CONSTIPATION; Start 02/13/20 at 11:30 Albuterol Sulfate (Ventolin Neb Soln) 2.5 mg PRN Q4HRS PRN NEB SHORTNESS OF BREATH; Start 02/13/20 at 11:30 Guaifenesin (Robitussin) 200 mg PRN Q4HRS PRN PO COUGH; Start 02/13/20 at 11:30 Lorazepam (Ativan) 0.5 mg PRN Q4HRS PRN PO ANXIETY / AGITATION; Start 02/13/20 at 11:30 Amlodipine Besylate (Norvasc) 10 mg DAILY PO Last administered on 02/14/20 09:28; Start 02/13/20 at 13:00 Aspirin (Ecotrin) 81 mg DAILY PO Last administered on 02/14/20 09:27; Start 02/13/20 at 13:00 Atorvastatin Calcium (Lipitor) 20 mg QHS PO Last administered on 02/13/20at 20:58; Start 02/13/20 at 21:00 Potassium Chloride (Klor-Con) 20 meq BID PO Last administered on 02/14/20at 09:27; Start 02/13/20 at 21:00 Losartan Potassium (Cozaar) 100 mg DAILY PO Last administered on 02/14/20at 09:27; Start 02/13/20 at 15:00 Ergocalciferol (Vitamin D2) 50,000 unit Sa PO Last administered on 02/13/20at 16:06; Start 02/13/20 at 15:00 Hydrochlorothiazide (Microzide) 12.5 mg DAILY PO Last administered on 02/14/20 09:26; Start 02/13/20 at 15:00 Azithromycin 500 mg/Sodium Chloride 250 ml @ 250 mls/hr Q24H IV ; Start 02/14/20 at 11:00 Active Scripts Active Reported Lipitor (Atorvastatin Calcium) 20 Mg Tablet 1 Tab PO QHS Aspir 81 (Aspirin) 81 Mg Tablet.dr 1 Tab PO DAILY Fosamax (Alendronate Sodium) 70 Mg Tablet 1 Tab PO WEEKLY Klor-Con M20 (Potassium Chloride) 20 Meq Tab.er.prt 20 Meq PO BID Amlodipine Besylate 10 Mg Tablet 10 Mg PO DAILY Vitals/I & O Vital Sign - Last 24 Hours 02/13/20 02/13/20 02/13/20 02/13/20 10:30 11:05 11:35 13:42 Pulse 68 68 68 68 B/P (MAP) 126/69 (88) 136/62 (86) 135/63 (87) 135/63 Pulse Ox 93 93 94 O2 Delivery Room Air Room Air Room Air 02/13/20 02/13/20 02/13/20 02/13/20 15:40 16:06 18:00 19:00 Temp 99.8 102.6 99.8 102.6 Pulse 80 80 78 Resp 20 20 B/P (MAP) 132/68 (89) 132/68 126/64 (84) Pulse Ox 95 O2 Delivery Room Air Room Air O2 Flow Rate 97.0 02/13/20 02/13/20 02/14/20 02/14/20 19:10 23:00 03:00 04:29 Temp 97.7 97.9 97.7 97.7 97.9 97.7 Pulse 64 70 64 Resp 18 18 18 B/P (MAP) 103/49 (67) 111/55 (73) 103/49 (67) Pulse Ox 95 95 95 O2 Delivery Room Air Room Air 02/14/20 02/14/20 02/14/20 07:00 09:27 09:28 Temp 99.8 99.8 Pulse 64 64 64 Resp 18 B/P (MAP) 133/52 (79) 133/52 133/52 Pulse Ox 95 O2 Delivery Room Air Intake and Output 02/13/20 02/13/20 02/14/20 15:00 23:00 07:00 Intake Total 250 ml 1656 ml Balance 250 ml 1656 ml LISA WEBER MD Feb 14, 2020 09:41
[2020-02-14] MEDS: guaiFENesin ORAL 200 MG/10 ML LIQUID. PO PRN ×2 (09:45→20:23)
[2020-02-14] MEDS: ACETAMINOPHEN 325 MG TABLET. PO PRN ×3 (09:46→20:25)
[2020-02-14] MEDS: AZITHROMYCIN 500 MG in IV NORMAL SALINE 250ML 250 ML IV SCH (11:00)
--- NOTE | 2020-02-14 12:14 | EKG ---
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
[2020-02-14] MEDS: HYDROXYCHLOROQUINE (PROGRAM) 200 MG TABLET PO SCH ×2 (16:39→20:23)
[2020-02-14] MEDS: DOCUSATE SODIUM 100 MG CAPSULE. PO PRN (20:23)
[2020-02-14] MEDS: ATORVASTATIN CALCIUM 20 MG TABLET PO SCH (20:24)
[2020-02-14 23:07] LABS: UR POTASSIUM 39.4 mmol/L (Not Estab.)
[2020-02-15 03:00] VITALS: BP 112/56
[2020-02-15] MEDS: IV NORMAL SALINE 1000ML BAG 1,000 ML IV SCH ×3 (04:12→20:21)
[2020-02-15 07:00] VITALS: BP 119/62
[2020-02-15] MEDS: LOSARTAN POTASSIUM 50 MG TABLET. PO SCH (08:58)
[2020-02-15] MEDS: POTASSIUM CHLORIDE 20 MEQ TABLET.ER. PO SCH ×2 (08:58→20:20)
[2020-02-15] MEDS: ACETAMINOPHEN 325 MG TABLET. PO PRN (08:59)
[2020-02-15] MEDS: ASPIRIN ENTERIC COATED 81 MG TABLET.DR. PO SCH (08:59)
[2020-02-15] MEDS: hydroCHLOROthiazide 12.5 MG CAPSULE PO SCH (08:59)
[2020-02-15] MEDS: HYDROXYCHLOROQUINE (PROGRAM) 200 MG TABLET PO SCH ×2 (08:59→20:20)
[2020-02-15] MEDS: amLODIPine BESYLATE 10 MG TABLET PO SCH (08:59)
[2020-02-15] MEDS: AZITHROMYCIN 500 MG in IV NORMAL SALINE 250ML 250 ML IV SCH (09:00)
[2020-02-15 11:00] VITALS: BP 114/63
--- NOTE | 2020-02-15 12:38 | PDOC ---
[facility] PROGRESS NOTE Chief Complaint Chief Complaint Acute SARS-CoV-2 (COVID 19) infection - 2 weeks post exposure to a large crowd, plaquenil and azithromycin started Acute renal failure most likely vasomotor nephropathy Hyponatremia secondary to low effective circulatory volume Moderate dehydration Right lower lobe atelectasis, Essential hypertension History of dyslipidemia History of Present Illness History of Present Illness 02-15-2020 Patient seen and examined She remains very ill In respiratory isolation for Covid-19 Discussed with RN Chart reviewed Ms Saucedo is a 74 year old female who was in her usual state health until 2 weeks prior to her admission when she started developing generalized weakness malaise and overall sensation of not wellbeing. The patient apparently went to a gathering to her local [employer]ar[employer] to pray for the current events. Most likely she got exposed to someone who may have been already infected at that time and developed symptoms not even 4 days after the encounter. He describes subjective fevers dry cough no sneezing no sinus pain no odynophagia. The patient denied pleurisy she denied diaphoresis no weight loss no inflamed lymph nodes reported. The patient did have nausea and had also loose stools reported especially over the last 24 hours prior to her visit to the emergency department. The patient has had decreased oral intake due to her symptoms and her appetite was also affected being almost no. Patient denies slurred speech she did lose consciousness approximately 1 week prior to her ER visit most likely a consequence of poor oral intake and dehydration. The patient denied lightheadedness no palpitations no chest pain has been reported the patient denies postictal period. SHe did not present seizure like activity. Due to the progressive nature of her symptoms she decided to consult today. She is being admitted for a COVID 19 positive pneumonia. Vitals/I&O Vitals/I&O: Vital Signs Date Time Temp Pulse Resp B/P (MAP) Pulse Ox O2 Delivery O2 Flow Rate FiO2 02/15/20 11:00 102.0 84 114/63 (80) 94 Room Air 102.0 02/15/20 03:00 20 02/14/20 08:00 97.0 I & O 02/14/20 02/14/20 02/15/20 15:00 23:00 07:00 Intake Total 800 ml Output Total 2600 ml Balance 800 ml -2600 ml Physical Exam General: Alert, Cooperative, moderate distress Heart: Regular rate Lungs: Wheezing, Crackles Abdomen: Normal bowel sounds, Soft Extremities: No clubbing, No cyanosis Skin: No rashes, No breakdown Assessment and Plan Assessmemt and Plan Problems Medical Problems: (1) Acute kidney injury Status: Acute (2) Pulmonary infiltrate Status: Acute Acute SARS-CoV-2 (COVID 19) infection - 2 weeks post exposure to a large crowd, plaquenil and azithromycin started Acute renal failure most likely vasomotor nephropathy Hyponatremia secondary to low effective circulatory volume Moderate dehydration Right lower lobe atelectasis, Essential hypertension History of dyslipidemia Plan IV antibiotics Duo nebs O2 Home meds DVT prophylaxis Full code Appreciate subspecialty input COVID-19 CRITERIA: The patient was evaluated during the global COVID-19 pandemic, and that diagnosis was suspected/considered upon their initial presentation. Their evaluation, treatment and testing was consistent with current guidelines for patients who present with complaints or symptoms that may be related to COVID-19. Total time 32 Comment Review of Relevant I have reviewed the following items angel (where applicable) has been applied. Medications: Current Medications Medications (Trade) Dose Ordered Sig/Karlos Route PRN Reason Start Time Stop Time Status Last Admin Dose Admin Hydroxychloroquine Sulfate (Plaquenil (Med Program)) 400 mg BID PO 02/14/20 16:00 02/14/20 21:01 DC 02/14/20 20:23 Hydroxychloroquine Sulfate (Plaquenil (Med Program)) 200 mg BID PO 02/15/20 09:00 02/18/20 21:01 02/15/20 08:59 IVETH FORBES III DO Feb 15, 2020 12:38
[2020-02-15 15:00] VITALS: BP 119/60
[2020-02-15] MEDS: cefTRIAXone IV Push 1 GM VIAL. IVP SCH (15:00)
[2020-02-15] MEDS: guaiFENesin ORAL 200 MG/10 ML LIQUID. PO PRN (18:14)
[2020-02-15 19:00] VITALS: BP 135/58
[2020-02-15] MEDS: ATORVASTATIN CALCIUM 20 MG TABLET PO SCH (20:20)
[2020-02-15] MEDS ORDERED: LACTOBACILLUS RHAMNOSUS GG 1 CAPSULE. PO SCH (21:00)
[2020-02-15 23:00] VITALS: BP 102/37
[2020-02-16 03:00] VITALS: BP 121/60
[2020-02-16 07:00] VITALS: BP 106/49
[2020-02-16] MEDS ORDERED: DOCUSATE SODIUM 100 MG CAPSULE. PO PRN (08:30)
[2020-02-16] MEDS: hydroCHLOROthiazide 12.5 MG CAPSULE PO SCH (08:35)
[2020-02-16] MEDS: ACETAMINOPHEN 325 MG TABLET. PO PRN (08:35)
[2020-02-16] MEDS: POTASSIUM CHLORIDE 20 MEQ TABLET.ER. PO SCH ×2 (08:35→20:14)
[2020-02-16] MEDS: amLODIPine BESYLATE 10 MG TABLET PO SCH (08:35)
[2020-02-16] MEDS: DOCUSATE SODIUM 100 MG CAPSULE. PO PRN (08:35)
[2020-02-16] MEDS: LOSARTAN POTASSIUM 50 MG TABLET. PO SCH (08:36)
[2020-02-16] MEDS: guaiFENesin ORAL 200 MG/10 ML LIQUID. PO PRN (08:36)
[2020-02-16] MEDS: ASPIRIN ENTERIC COATED 81 MG TABLET.DR. PO SCH (08:36)
[2020-02-16] MEDS: HYDROXYCHLOROQUINE (PROGRAM) 200 MG TABLET PO SCH ×2 (08:36→20:14)
[2020-02-16] MEDS: IV NORMAL SALINE 1000ML BAG 1,000 ML IV SCH ×2 (08:37→20:15)
[2020-02-16] MEDS: AZITHROMYCIN 500 MG in IV NORMAL SALINE 250ML 250 ML IV SCH (08:38)
[2020-02-16 10:33] VITALS: BP 130/61
--- NOTE | 2020-02-16 12:43 | PDOC ---
[facility] PROGRESS NOTE Chief Complaint Chief Complaint Acute SARS-CoV-2 (COVID 19) infection - 2 weeks post exposure to a large crowd, plaquenil and azithromycin started Acute renal failure most likely vasomotor nephropathy Hyponatremia secondary to low effective circulatory volume Moderate dehydration Right lower lobe atelectasis, Essential hypertension History of dyslipidemia History of Present Illness History of Present Illness 02-16-2020 Patient seen and examined on the Covid-19 unit She remains in respiratory isolation Chart reviewed Discussed with RN 02-15-2020 Patient seen and examined She remains very ill In respiratory isolation for Covid-19 Discussed with RN Chart reviewed Ms Saucedo is a 74 year old female who was in her usual state health until 2 weeks prior to her admission when she started developing generalized weakness malaise and overall sensation of not wellbeing. The patient apparently went to a gathering to her local [employer] to pray for the current events. Most likely she got exposed to someone who may have been already infected at that time and developed symptoms not even 4 days after the encounter. He describes subjective fevers dry cough no sneezing no sinus pain no odynophagia. The patient denied pleurisy she denied diaphoresis no weight loss no inflamed lymph nodes reported. The patient did have nausea and had also loose stools reported especially over the last 24 hours prior to her visit to the emergency department. The patient has had decreased oral intake due to her symptoms and her appetite was also affected being almost no. Patient denies slurred speech she did lose consciousness approximately 1 week prior to her ER visit most likely a consequence of poor oral intake and dehydration. The patient denied lightheadedness no palpitations no chest pain has been reported the patient denies postictal period. SHe did not present seizure like activity. Due to the progressive nature of her symptoms she decided to consult today. She is being admitted for a COVID 19 positive pneumonia. Vitals/I&O Vitals/I&O: Vital Signs Date Time Temp Pulse Resp B/P (MAP) Pulse Ox O2 Delivery O2 Flow Rate FiO2 02/16/20 10:33 98.6 75 130/61 (84) 95 Room Air 98.6 I & O 02/15/20 02/15/20 02/16/20 15:00 23:00 07:00 Intake Total 350 ml 500 ml Output Total 200 ml 1600 ml Balance -200 ml -1250 ml 500 ml Physical Exam General: Alert, Cooperative, moderate distress Heart: Regular rate Lungs: Wheezing, Crackles Abdomen: Normal bowel sounds, Soft Extremities: No clubbing, No cyanosis Skin: No rashes, No breakdown Assessment and Plan Assessmemt and Plan Problems Medical Problems: (1) Acute kidney injury Status: Acute (2) Pulmonary infiltrate Status: Acute Acute SARS-CoV-2 (COVID 19) infection - 2 weeks post exposure to a large crowd, plaquenil and azithromycin started Acute renal failure most likely vasomotor nephropathy Hyponatremia secondary to low effective circulatory volume Moderate dehydration Right lower lobe atelectasis, Essential hypertension History of dyslipidemia Plan IV antibiotics Duo nebs O2 Home meds DVT prophylaxis Full code Appreciate subspecialty input COVID-19 CRITERIA: The patient was evaluated during the global COVID-19 pandemic, and that diagnosis was suspected/considered upon their initial presentation. Their evaluation, treatment and testing was consistent with current guidelines for patients who present with complaints or symptoms that may be related to COVID-19. Hope to discharge by the end of the week if she is stable Comment Review of Relevant I have reviewed the following items angel (where applicable) has been applied. Medications: Current Medications Medications (Trade) Dose Ordered Sig/Karlos Route PRN Reason Start Time Stop Time Status Last Admin Dose Admin Ceftriaxone Sodium (Rocephin) 1 gm Q24H IVP 02/15/20 15:00 02/15/20 15:00 IVETH FORBES III DO Feb 16, 2020 12:43
[2020-02-16] MEDS: cefTRIAXone IV Push 1 GM VIAL. IVP SCH (14:29)
[2020-02-16 14:46] VITALS: BP 116/56
[2020-02-16 19:00] VITALS: BP 152/77
[2020-02-16] MEDS: ATORVASTATIN CALCIUM 20 MG TABLET PO SCH (20:14)
[2020-02-16 23:00] VITALS: BP 164/78
[2020-02-17 03:00] VITALS: BP 137/63
[2020-02-17] MEDS: IV NORMAL SALINE 1000ML BAG 1,000 ML IV SCH (03:41)
[2020-02-17 07:00] VITALS: BP 138/80
[2020-02-17] MEDS: HYDROXYCHLOROQUINE (PROGRAM) 200 MG TABLET PO SCH (08:15)
[2020-02-17] MEDS: amLODIPine BESYLATE 10 MG TABLET PO SCH (08:15)
[2020-02-17 08:16] VITALS: BP 138/80
[2020-02-17] MEDS: LOSARTAN POTASSIUM 50 MG TABLET. PO SCH (08:16)
[2020-02-17] MEDS: hydroCHLOROthiazide 12.5 MG CAPSULE PO SCH (08:16)
[2020-02-17] MEDS: POTASSIUM CHLORIDE 20 MEQ TABLET.ER. PO SCH (08:16)
[2020-02-17] MEDS: ASPIRIN ENTERIC COATED 81 MG TABLET.DR. PO SCH (08:16)
--- NOTE | 2020-02-17 12:33 | DS ---
DATE OF DISCHARGE: 02/17/2020 HOSPITAL SUMMARY: The patient has a history of seizure disorder and mental retardation, admitted when her significant other and she was no longer able to stay in the home setting. CBC, chest x-ray and COVID tests were negative, as were her lab. While in the hospital, she spiked a temperature to 100-102 and urine and blood cultures negative. No source of infection is seen, but is suspected that she could have the COVID virus despite a negative test. Nursing Center is willing to take her, understanding these restrictions and possible COVID diagnosis and she was transferred today without change. FINAL DIAGNOSES: 1. Fever, unknown origin. Suspect COVID infection. 2. Chronic seizure disorder, mental retardation. OPERATIONS, PROCEDURES, COMPLICATIONS: None. CONSULTATIONS: Dr. Leonard and Dr. Pritchard. DISPOSITION: All meds remain the same. No specific treatment for the COVID virus. She is a DNR patient, comfort care measures. SKYLAR JHAVERI MD DR: VINAY/aileen JOB#: [id number] / [id number]
--- NOTE | 2020-02-17 12:37 | DS ---
DATE OF DISCHARGE: 02/17/2020 ADMISSION DIAGNOSES: Pneumonia and acute kidney injury. DISCHARGE DIAGNOSIS: Resolving coronavirus disease-19. HOSPITAL COURSE: The patient is a pleasant 74-year-old female who presented with shortness of breath, pneumonia and was noted to be dehydrated, had acute kidney injury. She was admitted. We gave her IV antibiotics, azithromycin and Plaquenil. Her COVID test was positive. This morning, I saw her, examined her, she was doing great, requesting to be discharged. PHYSICAL EXAMINATION: HEART: Tones were normal. LUNGS: Clear. ABDOMEN: Soft. EXTREMITIES: No edema. I left prescriptions for azithromycin and Plaquenil for 3 more days. DISPOSITION: Home. ACTIVITY: As tolerated. DIET: Low sodium. MEDICATIONS: Please see the MRAD. TOTAL TIME: 32 minutes. We did tell the patient to stay home and quarantine for the next 12 days. IVETH FORBES DO DR: VIVI/aileen JOB#: [id number] / [id number]
== END 2020-02-17 10:30 | disposition home or self-care (01) | DRG 177 ==
LOC: ER 07:56 → 2 NORTH 11:00 → 6 SOUTH 12:35
PROVIDERS: ADMIT Internal Medicine; ATTEND Internal Medicine
DX: U07.1 COVID-19 (principal); J12.89 Other viral pneumonia; E87.1 Hypo-osmolality and hyponatremia; J98.11 Atelectasis; N17.9 Acute kidney failure, unspecified; E78.5 Hyperlipidemia, unspecified; E86.0 Dehydration; K21.9 Gastro-esophageal reflux disease without esophagitis; F79 Unspecified intellectual disabilities; G40.909 Epilepsy, unspecified, not intractable, without status epilepticus; I10 Essential (primary) hypertension; M85.80 Other specified disorders of bone density and structure, unspecified site; Z78.9 Other specified health status; Z82.49 Family history of ischemic heart disease and other diseases of the circulatory system; Z90.710 Acquired absence of both cervix and uterus; Z88.8 Allergy status to other drugs, medicaments and biological substances; Z79.899 Other long term (current) drug therapy
CPT/HCPCS: 36415; 71045; 74176; 80053; 81001; 82436; 82570; 82728; 83690; 83930; 83935; 84133; 84145; 84300; 84484; 85025; 85379; 87635; 87804; 93005; 96361; 96374; 96375; 99285; J0456; J0696; J2405; J7030; J7040; J7050; P9612; G0378

== ENCOUNTER 2020-04-06 00:31 | Emergency (ER) | payer MEDICARE ==
[~2020-04-06] VITALS: Ht 160 cm; Wt 80.0 kg
[2020-04-06 00:52] VITALS: BP 163/71
[2020-04-06] MEDS ORDERED: DICL50TA4 PO (01:04)
[2020-04-06] MEDS ORDERED: ORPH100T PO (01:04)
[2020-04-06] MEDS ORDERED: TRAM50TA PO (01:04)
--- NOTE | 2020-04-06 01:04 | PHYS DOC ---
Past Medical History Past Medical History: Hypertension, Other Additional Past Medical Histor: HYPOKALEMIA Past Surgical History: Hysterectomy Additional Past Surgical Histo: exploratory abdominal surgery Smoking Status: Never Smoker Alcohol Use: None Drug Use: None General Adult EDM: Chief Complaint: Neck Pain HPI: HPI: Patient is a 74 year old female who presents with complaint of approximately 2- week history of left-sided neck pain and upper back pain. Patient states that pain is worsened with movement of the neck and palpation. She denies any fever. Patient is concerned because she was diagnosed last month with COVID and wanted to make sure that this was not something associated with that infection. [] Review of Systems: Review of Systems: Constitutional: Denies fever or chills. [] Respiratory: Denies cough or shortness of breath. [] Cardiovascular: Denies chest pain or edema. [] Musculoskeletal: Complains of left-sided neck and upper back pain. [] Integument: Denies rash. [] Neurologic: Denies headache, focal weakness or sensory changes. [] Heart Score: Risk Factors: Risk Factors: DM, Current or recent (<one month) smoker, HTN, HLP, family history of CAD, obesity. Risk Scores: Score 0 - 3: 2.5% MACE over next 6 weeks - Discharge Home Score 4 - 6: 20.3% MACE over next 6 weeks - Admit for Clinical Observation Score 7 - 10: 72.7% MACE over next 6 weeks - Early Invasive Strategies Current Medications: Current Medications Medications (Trade) Dose Ordered Sig/Karlos Start Time Stop Time Status Last Admin Dose Admin Dexamethasone Sodium Phosphate (Decadron) 10 mg 1X ONCE 04/06/20 01:30 04/06/20 01:31 Orphenadrine Citrate (Norflex) 60 mg 1X ONCE 04/06/20 01:30 04/06/20 01:31 Allergies: Allergies: Allergies Coded Allergies Type Severity Reaction Last Updated Verified EVE Inhibitors Allergy Severe SWELLING ON FACE /THROAT 05/17/15 Yes codeine Adverse Reaction Intermediate nausea/vomitting 05/17/15 Yes Physical Exam: PE: Constitutional: Well developed, well nourished, no acute distress, non-toxic appearance. [] HENT: Normocephalic, atraumatic, bilateral external ears normal, oropharynx mo ist, no oral exudates, nose normal. [] Neck: Normal range of motion, with left-sided suboccipital and cervical strap muscle tenderness and palpable spasm. [] Cardiovascular: Regular rate and rhythm [] Lungs & Thorax: Bilateral breath sounds clear to auscultation [] Skin: Warm, dry, no erythema, no rash. [] Back: There is tenderness to palpation with palpable spasm in the left sided trapezius musculature. [] EKG: EKG: [] Radiology/Procedures: Radiology/Procedures: [] Course & Med Decision Making: Course & Med Decision Making Pertinent Labs and Imaging studies reviewed. (See chart for details) [] Dragon Disclaimer: Dragon Disclaimer: This electronic medical record was generated, in whole or in part, using a voice recognition dictation system. Departure Departure Impression: Primary Impression: Neck pain Additional Impression: Cervical paraspinal muscle spasm Disposition: 01 HOME, SELF-CARE Condition: STABLE Referrals: JT KATZ MD (PCP) Patient Instructions: Musculoskeletal Pain Scripts Tramadol Hcl (TRAMADOL HCL) 50 Mg Tablet 50 MG PO Q6HRS PRN for PAIN, #12 TAB Prov: ERUM MASON Jr. DO 04/06/20 Orphenadrine Citrate (ORPHENADRINE CITRATE) 100 Mg Tablet.er 1 TAB PO BID PRN for MUSCLE SPASMS, #14 TAB Prov: ERUM MASON Jr. DO 04/06/20 Diclofenac Sodium (DICLOFENAC SODIUM) 50 Mg Tablet.dr 1 TAB PO BID PRN for PAIN, #20 TAB Prov: ERUM MASON Jr. DO 04/06/20 ERUM MASON Jr. DO April 06, 2020 01:04
[2020-04-06] MEDS ORDERED: DEXAMETHASONE SOD PHOS 20 MG/5 ML VIAL. IM ONE (01:30)
[2020-04-06] MEDS ORDERED: ORPHENADRINE CITRATE 60 MG/2 ML VIAL. IM ONE (01:30)
== END 2020-04-06 01:12 | disposition home or self-care (01) ==
LOC: ER 00:31
DX: M54.2 Cervicalgia (principal); M62.838 Other muscle spasm; M54.6 Pain in thoracic spine; I10 Essential (primary) hypertension; Z88.5 Allergy status to narcotic agent; Z88.8 Allergy status to other drugs, medicaments and biological substances
CPT/HCPCS: 96372; 99284; J1100; J2360

== ENCOUNTER 2020-04-30 23:36 | Inpatient (IN) | payer MEDICARE ==
[~2020-04-30] VITALS: Ht 157.5 cm; Wt 82.1 kg
[~2020-04-30 23:36] MED LIST changes: +DICL50TA4 PO; +ORPH100T PO; +TRAM50TA PO
[2020-05-01 00:03] LABS: BASO # 0.1 x10^3/uL (0.0-0.2); BASO % 2 % (0-3); EOS # 0.1 x10^3/uL (0.0-0.7); EOS % 2 % (0-3); HEMATOCRIT 34.1 % (36.0-47.0); HEMOGLOBIN 11.5 g/dL (12.0-15.5); LYMPH # 2.4 x10^3/uL (1.0-4.8); LYMPH % 43 % (24-48); MEAN CORPUSCULAR HEMOGLOBIN 28 pg (25-35); MEAN CORPUSCULAR HGB CONC 34 g/dL (31-37); MEAN CORPUSCULAR VOLUME 82 fL (79-100); MONO # 0.7 x10^3/uL (0.0-1.1); MONO % 12 % (0-9); NEUT # 2.3 x10^3/uL (1.8-7.7); NEUT % 41 % (31-73); PLATELET COUNT 332 x10^3/uL (140-400); RED BLOOD COUNT 4.17 x10^6/uL (3.50-5.40); RED CELL DISTRIBUTION WIDTH 16.4 % (11.5-14.5); WHITE BLOOD COUNT 5.6 x10^3/uL (4.0-11.0)
[2020-05-01 00:12] LABS: PROTHROMBIN TIME PATIENT 13.3 SEC (11.7-14.0)
[2020-05-01 00:14] LABS: CALCIUM 9.3 mg/dL (8.5-10.1); CREATININE 1.1 mg/dL (0.6-1.0); GFR 58.6; POTASSIUM 3.4 mmol/L (3.5-5.1)
[2020-05-01 00:15] LABS: D-DIMER 0.79 ug/mlFEU (0.00-0.50)
[2020-05-01 00:20] LABS: ALBUMIN 3.4 g/dL (3.4-5.0); ALBUMIN/GLOBULIN RATIO 0.9 (1.0-1.7); MAGNESIUM 1.9 mg/dL (1.8-2.4); TOTAL BILIRUBIN 0.3 mg/dL (0.2-1.0); TOTAL PROTEIN 7.3 g/dL (6.4-8.2)
[2020-05-01] MEDS ORDERED: IV NORMAL SALINE 1000ML BAG 1,000 ML IV ONE (00:30)
[2020-05-01] MEDS ORDERED: ASPIRIN 325 MG TABLET PO ONE (00:30)
[2020-05-01 00:56] LABS: BILIRUBIN,URINE NEGATIVE (NEG); CLARITY,URINE CLEAR; COLOR,URINE YELLOW; NITRITE,URINE NEGATIVE (NEG); PROTEIN,URINE NEGATIVE (NEG-TRACE); UROBILINOGEN,URINE 0.2 mg/dL (0.2 mg/dL)
[2020-05-01] MEDS ORDERED: ASPIRIN CHEWABLE 81 MG TABLET. PO ONE (01:00)
[2020-05-01] MEDS ORDERED: CONTRAST GIVEN. MC PRN (01:30)
[2020-05-01 01:32] LABS: BACTERIA,URINE 0 /HPF (0-FEW); RBC,URINE OCC /HPF (0-2); SQUAMOUS EPITHELIAL CELL,UR FEW /LPF; WBC,URINE OCC /HPF (0-4)
--- NOTE | 2020-05-01 01:33 | PHYS DOC ---
Past Medical History Past Medical History: Hypertension, Other Additional Past Medical Histor: HYPOKALEMIA Past Surgical History: Hysterectomy Additional Past Surgical Histo: exploratory abdominal surgery Smoking Status: Never Smoker Alcohol Use: None Drug Use: None General Adult EDM: Chief Complaint: CHEST PAIN-CARDIAC NATURE HPI: HPI: Patient is a 74 year old female presents with report of midsternal chest discomfort that started at 2000 this evening. Patient reports it is a pressure. Denies trauma. Denies leg swelling or calf tenderness. Patient with cardiac risk factors of hypertension. Patient does report history of positive COVID test on 02/13/2020. Denies fever chills. Denies cough. Patient reports taking 81 mg aspirin just prior to arrival. Review of Systems: Review of Systems: Constitutional: Denies fever or chills Eyes: Denies redness or eye pain HENT: Denies nasal congestion or sore throat Respiratory: Denies cough or shortness of breath Cardiovascular: Reports chest pain; denies palpitations GI: Denies abdominal pain, nausea, or vomiting : Denies dysuria or hematuria Musculoskeletal: Denies back pain or joint pain Integument: Denies rash or skin lesions Neurologic: Denies headache, focal weakness or sensory changes Complete systems were reviewed and found to be within normal limits, except as documented in this note. Heart Score: HEART Score for Chest Pain: HEART Score for Chest Pain Response (Comments) Value History Moderately Suspicious 1 ECG Normal 0 Age > 65 2 Risk Factors 1 or 2 Risk Factors 1 Troponin < Normal Limit 0 Total 4 Risk Factors: Risk Factors: DM, Current or recent (<one month) smoker, HTN, HLP, family history of CAD, obesity. Risk Scores: Score 0 - 3: 2.5% MACE over next 6 weeks - Discharge Home Score 4 - 6: 20.3% MACE over next 6 weeks - Admit for Clinical Observation Score 7 - 10: 72.7% MACE over next 6 weeks - Early Invasive Strategies Current Medications: Current Medications Medications (Trade) Dose Ordered Sig/Karlos Start Time Stop Time Status Last Admin Dose Admin Aspirin (Aspirin Chewable) 243 mg 1X ONCE 05/01/20 01:00 05/01/20 01:01 DC 05/01/20 00:44 243 MG Aspirin (Jan Aspirin) 325 mg 1X ONCE 05/01/20 00:30 05/01/20 00:23 DC Info (CONTRAST GIVEN -- Rx MONITORING) 1 each PRN DAILY PRN 05/01/20 01:30 05/03/20 01:29 Iohexol (Omnipaque 350 Mg/ml) 90 ml 1X ONCE 05/01/20 02:00 05/01/20 02:01 Sodium Chloride 1,000 ml @ 1,000 mls/hr 1X ONCE 05/01/20 00:30 05/01/20 01:29 DC 05/01/20 00:44 1,000 MLS/HR Allergies: Allergies: Allergies Coded Allergies Type Severity Reaction Last Updated Verified EVE Inhibitors Allergy Severe SWELLING ON FACE /THROAT 05/17/15 Yes codeine Adverse Reaction Intermediate nausea/vomitting 05/17/15 Yes Physical Exam: PE: Constitutional: Well developed, well nourished, no acute distress, non-toxic appearance HENT: Normocephalic, atraumatic Eyes: Conjunctiva normal, no discharge Neck: Normal range of motion, no tenderness, supple Cardiovascular: Heart rate normal, regular rhythm Lungs & Thorax: Bilateral breath sounds clear to auscultation, no wheezing Abdomen: Soft, no tenderness Skin: Warm, dry, no erythema, no rash Extremities: No tenderness, ROM intact, no edema Neurologic: Alert and oriented X 3, no focal deficits noted Psychologic: Affect normal, judgment normal Current Patient Data: Labs: Laboratory Tests Test 04/30/20 23:53 White Blood Count 5.6 x10^3/uL (4.0-11.0) Red Blood Count 4.17 x10^6/uL (3.50-5.40) Hemoglobin 11.5 g/dL (12.0-15.5) L Hematocrit 34.1 % (36.0-47.0) L Mean Corpuscular Volume 82 fL (79-100) Mean Corpuscular Hemoglobin 28 pg (25-35) Mean Corpuscular Hemoglobin Concent 34 g/dL (31-37) Red Cell Distribution Width 16.4 % (11.5-14.5) H Platelet Count 332 x10^3/uL (140-400) Neutrophils (%) (Auto) 41 % (31-73) Lymphocytes (%) (Auto) 43 % (24-48) Monocytes (%) (Auto) 12 % (0-9) H Eosinophils (%) (Auto) 2 % (0-3) Basophils (%) (Auto) 2 % (0-3) Neutrophils # (Auto) 2.3 x10^3/uL (1.8-7.7) Lymphocytes # (Auto) 2.4 x10^3/uL (1.0-4.8) Monocytes # (Auto) 0.7 x10^3/uL (0.0-1.1) Eosinophils # (Auto) 0.1 x10^3/uL (0.0-0.7) Basophils # (Auto) 0.1 x10^3/uL (0.0-0.2) Prothrombin Time 13.3 SEC (11.7-14.0) Prothrombin Time INR 1.1 (0.8-1.1) Activated Partial Thromboplast Time 35 SEC (24-38) D-Dimer (Hodan) 0.79 ug/mlFEU (0.00-0.50) H Sodium Level 136 mmol/L (136-145) Potassium Level 3.4 mmol/L (3.5-5.1) L Chloride Level 100 mmol/L (98-107) Carbon Dioxide Level 28 mmol/L (21-32) Anion Gap 8 (6-14) Blood Urea Nitrogen 13 mg/dL (7-20) Creatinine 1.1 mg/dL (0.6-1.0) H Estimated GFR (Cockcroft-Gault) 58.6 BUN/Creatinine Ratio 12 (6-20) Glucose Level 119 mg/dL (70-99) H Calcium Level 9.3 mg/dL (8.5-10.1) Magnesium Level 1.9 mg/dL (1.8-2.4) Total Bilirubin 0.3 mg/dL (0.2-1.0) Aspartate Amino Transferase (AST) 18 U/L (15-37) Alanine Aminotransferase (ALT) 20 U/L (14-59) Alkaline Phosphatase 66 U/L (46-116) Creatine Kinase 93 U/L (26-192) Creatine Kinase MB (Mass) 0.8 ng/mL (0.0-3.6) Creatine Kinase MB Relative Index 0.9 % (0-4) Troponin I Quantitative < 0.017 ng/mL (0.000-0.055) AD-Twi-I-Type Natriuretic Peptide 83 pg/mL (0-449) Total Protein 7.3 g/dL (6.4-8.2) Albumin 3.4 g/dL (3.4-5.0) Albumin/Globulin Ratio 0.9 (1.0-1.7) L Lipase 162 U/L (73-393) Laboratory Tests 04/30/20 23:53 Laboratory Tests 04/30/20 23:53 Vital Signs: Vital Signs Date Time Temp Pulse Resp B/P (MAP) Pulse Ox O2 Delivery O2 Flow Rate FiO2 04/30/20 23:39 97.8 65 14 217/92 (133) 100 Room Air 97.8 EKG: EKG: @2348 NSR at 68bpm, NO ST elevation, QRS 80ms, QT/QTc 470/500ms, low voltage QRS, no specific t wave inversion V1-V3 Radiology/Procedures: Radiology/Procedures: PROCEDURE: CT ANGIOGRAPHY CHEST Examination: CT angiography chest HISTORY: History of chest pain, elevated d-dimer COMPARISON: None available Technique: Axial CT angiographic images of chest were performed with IV contrast. Coronal and sagittal 3-D MIP reformats are performed Exposure: One or more of the following individualized dose reduction techniques were utilized for this examination: 1. Automated exposure control 2. Adjustment of the mA and/or kV according to patient size 3. Use of iterative reconstruction technique FINDINGS: The central airways are patent. The caliber of the aorta grossly appears unremarkable. There is no evidence of filling defect identified in the main pulmonary arterial trunk and right and left main pulmonary arteries and the visualized lobar, segmental branch of the pulmonary arteries. Faint airspace opacities identified in the right upper lobe, right middle lobe and left lingula likely atelectasis or infiltrates. Linear atelectasis or infiltrate left lung base. Multiple cystic structures identified in the liver most likely cyst similar to prior exam. Small hiatal hernia. Mild degenerative changes thoracic spine. IMPRESSION: 1. No evidence of pulmonary embolism. 2. Faint airspace opacities identified in the right upper lobe, right middle lobe and left lingula likely atelectasis or infiltrates. Electronically signed by: Nacho Mckeon MD (05/01/2020 1:48 AM) [id number] Course & Med Decision Making: Course & Med Decision Making Pertinent Labs and Imaging studies reviewed. (See chart for details) Patient presents with midsternal chest pain that occurred at 8 PM this evening. Patient with some cardiac risk factors of hypertension. Patient does report taking 81 mg aspirin prior to arrival. EKG without acute process. Additional 243 mg of aspirin provided. Labs obtained and posted to chart. Initial troponin within normal limits. D-dimer elevated. CTA chest without signs of PE. HEART score 4. Patient requiring admission for further evaluation and treatment. Discussed with Dr. Rodriguez (hospitalist) who is in agreement with admission. Discussed findings and plan with patient, who acknowledges understanding and agreement. Dragon Disclaimer: Dragon Disclaimer: This electronic medical record was generated, in whole or in part, using a voice recognition dictation system. Departure Departure Impression: Primary Impression: Chest pain, rule out acute myocardial infarction Additional Impression: Elevated d-dimer Disposition: ADMITTED INPATIENT Admitting Physician: SAUD (Michael) Condition: STABLE Referrals: JT KATZ MD (PCP) Scripts Amlodipine Besylate (AMLODIPINE BESYLATE) 10 Mg Tablet 10 MG PO DAILY for HTN for 90 Days, #90 TAB Prov: LISA WEBER MD 05/02/20 Pantoprazole Sodium (PANTOPRAZOLE SODIUM ) 40 Mg Tablet. 40 MG PO DAILYAC for GERD for 30 Days, #30 TAB.SR Prov: LISA WEBER MD 05/02/20 Justicifation of Admission Dx: Justifications for Admission: Justification of Admission Dx: Yes Comments: Chest pain MARTIN KNOWLES DO May 01, 2020 01:33
[2020-05-01] MEDS ORDERED: ONDANSETRON PF 4 MG/2 ML VIAL. IV PRN ×2 (01:45→17:15)
--- NOTE | 2020-05-01 01:50 | RAD ---
Examination: CT angiography chest HISTORY: History of chest pain, elevated d-dimer COMPARISON: None available Technique: Axial CT angiographic images of chest were performed with IV contrast. Coronal and sagittal 3-D MIP reformats are performed Exposure: One or more of the following individualized dose reduction techniques were utilized for this examination: 1. Automated exposure control 2. Adjustment of the mA and/or kV according to patient size 3. Use of iterative reconstruction technique FINDINGS: The central airways are patent. The caliber of the aorta grossly appears unremarkable. There is no evidence of filling defect identified in the main pulmonary arterial trunk and right and left main pulmonary arteries and the visualized lobar, segmental branch of the pulmonary arteries. Faint airspace opacities identified in the right upper lobe, right middle lobe and left lingula likely atelectasis or infiltrates. Linear atelectasis or infiltrate left lung base. Multiple cystic structures identified in the liver most likely cyst similar to prior exam. Small hiatal hernia. Mild degenerative changes thoracic spine. IMPRESSION: 1. No evidence of pulmonary embolism. 2. Faint airspace opacities identified in the right upper lobe, right middle lobe and left lingula likely atelectasis or infiltrates. Electronically signed by: Nacho Mckeon MD (05/01/2020 1:48 AM) [id number]
[2020-05-01] MEDS ORDERED: IOHEXOL 350 MG/ML 100 ML VIAL. IV ONE (02:00)
[2020-05-01] MEDS ORDERED: POTA20TA4 PO (02:50)
[2020-05-01] MEDS ORDERED: ERGO500027 PO (02:50)
[2020-05-01] MEDS ORDERED: HYDR12.58 PO (02:50)
[2020-05-01 03:17] VITALS: BP 106/53
[2020-05-01] MEDS ORDERED: DOCU100C28 PO (04:22)
[2020-05-01] MEDS ORDERED: FERR325T72 PO (04:22)
[2020-05-01] MEDS ORDERED: AMOX500C PO (04:24)
[2020-05-01] MEDS: fentaNYL PF VIAL 100 MCG/2 ML VIAL IV PRN ×3 (04:28→17:36)
[2020-05-01 07:00] VITALS: BP 189/77
[2020-05-01] MEDS ORDERED: POTASSIUM CHLORIDE 20 MEQ TABLET.ER. PO ONE (11:00)
[2020-05-01 11:03] VITALS: BP 196/86
--- NOTE | 2020-05-01 11:10 | PDOC1 ---
History and Physical Date of Admission Date of Admission DATE: 05/01/20 TIME: 11:09 Identification/Chief Complaint Chief Complaint Patient is a 74 year old FEMALE who presents with CHEST DISCOMFORT //presented with retrosternal chest pain that she described as pressure-like sensation, 8/10 severity, waxing and waning since 04/30. She denied any exertional component. She also denied any orthopnea/PND, palpitations or syncope. She was apparently told that she had coronary vasospasm in 2001 when cardiac catheterization did not show any significant coronary artery stenosis. recently evaluated at [facility] for acute viral syndrome in February 2020 Past Medical History Past Medical History Past Medical History Past Medical History: Hypertension, Other Additional Past Medical Histor: HYPOKALEMIA Past Surgical History: Hysterectomy Additional Past Surgical Histo: exploratory abdominal surgery Smoking Status: Never Smoker Alcohol Use: None Drug Use: None fhx obesity Cardiovascular: HTN Pulmonary: No pertinent hx CENTRAL NERVOUS SYSTEM: Other GI: GERD Heme/Onc: No pertinent hx Psych: No pertinent hx Musculoskeletal: Osteoarthritis Rheumatologic: No pertinent hx Infectious disease: No pertinent hx Renal/: No pertinent hx Endocrine: Osteopenia Past Surgical History Past Surgical History: Hysterectomy, Other Family History Family History: Coronary Artery Disease, Hypertension Social History Smoke: No ALCOHOL: none Drugs: None Current Problem List Problem List Problems Medical Problems: (1) Chest pain, rule out acute myocardial infarction Status: Acute (2) Elevated d-dimer Status: Acute Current Medications Current Medications Current Medications Aspirin (Jan Aspirin) 325 mg 1X ONCE PO ; Start 05/01/20 at 00:30; Stop 05/01/20 at 00:23; Status DC Sodium Chloride 1,000 ml @ 1,000 mls/hr 1X ONCE IV Last administered on 05/01/20at 00:44; Start 05/01/20 at 00:30; Stop 05/01/20 at 01:29; Status DC Aspirin (Aspirin Chewable) 243 mg 1X ONCE PO Last administered on 05/01/20at 00:44; Start 05/01/20 at 01:00; Stop 05/01/20 at 01:01; Status DC Iohexol (Omnipaque 350 Mg/ml) 90 ml 1X ONCE IV Last administered on 05/01/20at 01:35; Start 05/01/20 at 02:00; Stop 05/01/20 at 02:01; Status DC Info (CONTRAST GIVEN -- Rx MONITORING) 1 each PRN DAILY PRN MC SEE COMMENTS; Start 05/01/20 at 01:30; Stop 05/03/20 at 01:29 Ondansetron HCl (Zofran) 4 mg PRN Q8HRS PRN IV NAUSEA/VOMITING 1ST CHOICE; Start 05/01/20 at 01:45; Stop 05/02/20 at 01:44 Fentanyl Citrate (Fentanyl 2ml Vial) 25 mcg PRN Q2HRS PRN IV SEVERE PAIN 7-10 Last administered on 05/01/20at 04:28; Start 05/01/20 at 01:45 Potassium Chloride (Klor-Con) 20 meq 1X ONCE PO ; Start 05/01/20 at 11:00; Stop 05/01/20 at 11:05; Status DC Active Scripts Active Reported Amoxicillin 500 Mg Capsule 1 Cap PO Q8HRS 10 Days Docusate Sodium 100 Mg Capsule 1 Cap PO PRN DAILY PRN 30 Days Feosol (Ferrous Sulfate) 325 Mg Tablet 1 Tab PO DAILY 30 Days Hydrochlorothiazide Tablet (Hydrochlorothiazide) 12.5 Mg Tablet 12.5 Mg PO DAILY Potassium Chloride (Potassium Chloride) 20 Meq Tablet.er 20 Meq PO DAILY08 Vitamin D2 (Ergocalciferol (Vitamin D2)) 1,250 Mcg Capsule 1,250 Mcg PO EVERY OTHER WEEK Aspir 81 (Aspirin) 81 Mg Tablet.dr 1 Tab PO DAILY Klor-Con M20 (Potassium Chloride) 20 Meq Tab.er.prt 20 Meq PO PRN DAILY PRN Amlodipine Besylate 10 Mg Tablet 10 Mg PO DAILY Allergies Allergies: Coded Allergies: EVE Inhibitors (Verified Allergy, Severe, SWELLING ON FACE /THROAT, 05/17/15) codeine (Verified Adverse Reaction, Intermediate, nausea/vomitting, 05/17/15) ROS Review of System Review of Systems: Review of Systems: Constitutional: Denies fever or chills. [] Eyes: Denies change in visual acuity. [] HENT: Denies nasal congestion or sore throat. [] Respiratory: Denies cough or shortness of breath. [] Cardiovascular: mild chest pain no edema. [] GI: Denies abdominal pain, nausea, vomiting, bloody stools or diarrhea. [] : Denies dysuria. [] Musculoskeletal: Denies back pain or joint pain. [] Integument: Denies rash. [] Neurologic: Denies headache, focal weakness or sensory changes. [] Endocrine: Denies polyuria or polydipsia. [] Lymphatic: Denies swollen glands. [] Psychiatric: Denies depression or anxiety. [] 14 pt ros othersise neg Hematological and Lymphatic: No: Bleeding Problems, Blood Clots, Blood T ransfusions, Brusing, Night Sweats, Pallor, Swollen Lymph Nodes, Other Respiratory: YES: Shortness of breath Cardiovascular: yes Chest Pain Musculoskeletal: No Gait Disturbance, No Joint Pain, No Joint Stiffness, No Joint Swelling, No Muscle Pain, No Muscular Weakness, No Pain In:, No Swelling In:, No Other Neurological: No Behavorial Changes, No Bowel/Bladder ControlChng, No Confusion, No Dizziness, No Gait Disturbance, No Headaches, No Impaired Coord/balance, No Memory Loss, No Numbness/Tingling, No Seizures, No Speech Problems, No Tremors, No Visual Changes, No Weakness, No Other Physical Exam Physical Exam Constitutional: Well developed, well nourished, no acute distress, non-toxic appearance. [] HENT: Normocephalic, atraumatic, bilateral external ears normal, oropharynx moist, no oral exudates, nose normal. [] Eyes: PERRLA, EOMI, conjunctiva normal, no discharge. [] Neck: Normal range of motion, no tenderness, supple, no stridor. [] Cardiovascular:Heart rate regular rhythm, no murmur [] Lungs & Thorax: Bilateral breath sounds clear to auscultation [] Abdomen: Bowel sounds normal, soft, no tenderness, no masses, no pulsatile masses. [] Skin: Warm, dry, no erythema, no rash. [] Back: No tenderness, no CVA tenderness. [] Extremities: No tenderness, no cyanosis, no clubbing, ROM intact, no edema. [] Neurologic: Alert and oriented X 3, normal motor function, normal sensory function, no focal deficits noted. [] Psychologic: Affect normal, judgment normal, mood normal. [] General: No acute distress HEENT: EOMI, Mucous membr. moist/pink Lungs: Clear to auscultation, Normal air movement Heart: S1S2, RRR, no thrills, no gallops Breasts: Not examined Rectal Exam: not examined PELVIC: Examination not indicated Extremities: No cyanosis Neuro: Normal speech, Cranial nerves 3-12 NL Psych/Mental Status: Mental status NL, Mood NL Vitals Vitals Vital Signs Date Time Temp Pulse Resp B/P (MAP) Pulse Ox O2 Delivery O2 Flow Rate FiO2 05/01/20 11:03 97.6 62 19 196/86 (122) 99 Room Air 97.6 Labs Labs Laboratory Tests Test 04/30/20 23:53 05/01/20 00:40 05/01/20 05:00 05/01/20 07:45 White Blood Count 5.6 x10^3/uL (4.0-11.0) Red Blood Count 4.17 x10^6/uL (3.50-5.40) Hemoglobin 11.5 g/dL (12.0-15.5) Hematocrit 34.1 % (36.0-47.0) Mean Corpuscular Volume 82 fL (79-100) Mean Corpuscular Hemoglobin 28 pg (25-35) Mean Corpuscular Hemoglobin Concent 34 g/dL (31-37) Red Cell Distribution Width 16.4 % (11.5-14.5) Platelet Count 332 x10^3/uL (140-400) Neutrophils (%) (Auto) 41 % (31-73) Lymphocytes (%) (Auto) 43 % (24-48) Monocytes (%) (Auto) 12 % (0-9) Eosinophils (%) (Auto) 2 % (0-3) Basophils (%) (Auto) 2 % (0-3) Neutrophils # (Auto) 2.3 x10^3/uL (1.8-7.7) Lymphocytes # (Auto) 2.4 x10^3/uL (1.0-4.8) Monocytes # (Auto) 0.7 x10^3/uL (0.0-1.1) Eosinophils # (Auto) 0.1 x10^3/uL (0.0-0.7) Basophils # (Auto) 0.1 x10^3/uL (0.0-0.2) Prothrombin Time 13.3 SEC (11.7-14.0) Prothromb Time International Ratio 1.1 (0.8-1.1) Activated Partial Thromboplast Time 35 SEC (24-38) D-Dimer (Hodan) 0.79 ug/mlFEU (0.00-0.50) Sodium Level 136 mmol/L (136-145) Potassium Level 3.4 mmol/L (3.5-5.1) Chloride Level 100 mmol/L (98-107) Carbon Dioxide Level 28 mmol/L (21-32) Anion Gap 8 (6-14) Blood Urea Nitrogen 13 mg/dL (7-20) Creatinine 1.1 mg/dL (0.6-1.0) Estimated GFR (Cockcroft-Gault) 58.6 BUN/Creatinine Ratio 12 (6-20) Glucose Level 119 mg/dL (70-99) Calcium Level 9.3 mg/dL (8.5-10.1) Magnesium Level 1.9 mg/dL (1.8-2.4) Total Bilirubin 0.3 mg/dL (0.2-1.0) Aspartate Amino Transf (AST/SGOT) 18 U/L (15-37) Alanine Aminotransferase (ALT/SGPT) 20 U/L (14-59) Alkaline Phosphatase 66 U/L (46-116) Creatine Kinase 93 U/L (26-192) Creatine Kinase MB (Mass) 0.8 ng/mL (0.0-3.6) Creatine Kinase MB Relative Index 0.9 % (0-4) Troponin I Quantitative < 0.017 ng/mL (0.000-0.055) < 0.017 ng/mL (0.000-0.055) < 0.017 ng/mL (0.000-0.055) ST-Msj-S-Type Natriuretic Peptide 83 pg/mL (0-449) Total Protein 7.3 g/dL (6.4-8.2) Albumin 3.4 g/dL (3.4-5.0) Albumin/Globulin Ratio 0.9 (1.0-1.7) Lipase 162 U/L (73-393) Urine Collection Type Unknown Urine Color Yellow Urine Clarity Clear Urine pH 7.0 (<5.0-8.0) Urine Specific [place] 1.010 (1.000-1.030) Urine Protein Negative mg/dL (NEG-TRACE) Urine Glucose (UA) Negative mg/dL (NEG) Urine Ketones (Stick) Negative mg/dL (NEG) Urine Blood Negative (NEG) Urine Nitrite Negative (NEG) Urine Bilirubin Negative (NEG) Urine Urobilinogen Dipstick 0.2 mg/dL (0.2 mg/dL) Urine Leukocyte Esterase Negative (NEG) Urine RBC Occ /HPF (0-2) Urine WBC Occ /HPF (0-4) Urine Squamous Epithelial Cells Few /LPF Urine Bacteria 0 /HPF (0-FEW) Urine Mucus Slight /LPF Laboratory Tests Test 04/30/20 23:53 05/01/20 00:40 05/01/20 05:00 05/01/20 07:45 White Blood Count 5.6 x10^3/uL (4.0-11.0) Red Blood Count 4.17 x10^6/uL (3.50-5.40) Hemoglobin 11.5 g/dL (12.0-15.5) Hematocrit 34.1 % (36.0-47.0) Mean Corpuscular Volume 82 fL (79-100) Mean Corpuscular Hemoglobin 28 pg (25-35) Mean Corpuscular Hemoglobin Concent 34 g/dL (31-37) Red Cell Distribution Width 16.4 % (11.5-14.5) Platelet Count 332 x10^3/uL (140-400) Neutrophils (%) (Auto) 41 % (31-73) Lymphocytes (%) (Auto) 43 % (24-48) Monocytes (%) (Auto) 12 % (0-9) Eosinophils (%) (Auto) 2 % (0-3) Basophils (%) (Auto) 2 % (0-3) Neutrophils # (Auto) 2.3 x10^3/uL (1.8-7.7) Lymphocytes # (Auto) 2.4 x10^3/uL (1.0-4.8) Monocytes # (Auto) 0.7 x10^3/uL (0.0-1.1) Eosinophils # (Auto) 0.1 x10^3/uL (0.0-0.7) Basophils # (Auto) 0.1 x10^3/uL (0.0-0.2) Prothrombin Time 13.3 SEC (11.7-14.0) Prothromb Time International Ratio 1.1 (0.8-1.1) Activated Partial Thromboplast Time 35 SEC (24-38) D-Dimer (Hodan) 0.79 ug/mlFEU (0.00-0.50) Sodium Level 136 mmol/L (136-145) Potassium Level 3.4 mmol/L (3.5-5.1) Chloride Level 100 mmol/L (98-107) Carbon Dioxide Level 28 mmol/L (21-32) Anion Gap 8 (6-14) Blood Urea Nitrogen 13 mg/dL (7-20) Creatinine 1.1 mg/dL (0.6-1.0) Estimated GFR (Cockcroft-Gault) 58.6 BUN/Creatinine Ratio 12 (6-20) Glucose Level 119 mg/dL (70-99) Calcium Level 9.3 mg/dL (8.5-10.1) Magnesium Level 1.9 mg/dL (1.8-2.4) Total Bilirubin 0.3 mg/dL (0.2-1.0) Aspartate Amino Transf (AST/SGOT) 18 U/L (15-37) Alanine Aminotransferase (ALT/SGPT) 20 U/L (14-59) Alkaline Phosphatase 66 U/L (46-116) Creatine Kinase 93 U/L (26-192) Creatine Kinase MB (Mass) 0.8 ng/mL (0.0-3.6) Creatine Kinase MB Relative Index 0.9 % (0-4) Troponin I Quantitative < 0.017 ng/mL (0.000-0.055) < 0.017 ng/mL (0.000-0.055) < 0.017 ng/mL (0.000-0.055) OR-Qgc-V-Type Natriuretic Peptide 83 pg/mL (0-449) Total Protein 7.3 g/dL (6.4-8.2) Albumin 3.4 g/dL (3.4-5.0) Albumin/Globulin Ratio 0.9 (1.0-1.7) Lipase 162 U/L (73-393) Urine Collection Type Unknown Urine Color Yellow Urine Clarity Clear Urine pH 7.0 (<5.0-8.0) Urine Specific [place] 1.010 (1.000-1.030) Urine Protein Negative mg/dL (NEG-TRACE) Urine Glucose (UA) Negative mg/dL (NEG) Urine Ketones (Stick) Negative mg/dL (NEG) Urine Blood Negative (NEG) Urine Nitrite Negative (NEG) Urine Bilirubin Negative (NEG) Urine Urobilinogen Dipstick 0.2 mg/dL (0.2 mg/dL) Urine Leukocyte Esterase Negative (NEG) Urine RBC Occ /HPF (0-2) Urine WBC Occ /HPF (0-4) Urine Squamous Epithelial Cells Few /LPF Urine Bacteria 0 /HPF (0-FEW) Urine Mucus Slight /LPF Images Images Examination: CT angiography chest HISTORY: History of chest pain, elevated d-dimer COMPARISON: None available Technique: Axial CT angiographic images of chest were performed with IV contrast. Coronal and sagittal 3-D MIP reformats are performed Exposure: One or more of the following individualized dose reduction techniques were utilized for this examination: 1. Automated exposure control 2. Adjustment of the mA and/or kV according to patient size 3. Use of iterative reconstruction technique FINDINGS: The central airways are patent. The caliber of the aorta grossly appears unremarkable. There is no evidence of filling defect identified in the main pulmonary arterial trunk and right and left main pulmonary arteries and the visualized lobar, segmental branch of the pulmonary arteries. Faint airspace opacities identified in the right upper lobe, right middle lobe and left lingula likely atelectasis or infiltrates. Linear atelectasis or infiltrate left lung base. Multiple cystic structures identified in the liver most likely cyst similar to prior exam. Small hiatal hernia. Mild degenerative changes thoracic spine. IMPRESSION: 1. No evidence of pulmonary embolism. 2. Faint airspace opacities identified in the right upper lobe, right middle lobe and left lingula likely atelectasis or infiltrates. Electronically signed by: Nacho Mckeon MD (05/01/2020 1:48 AM) [id number] DICTATED and SIGNED BY: NACOH MCKEON MD DATE: 05/01/20 0148 EXAM: Two-dimensional and M-mode echocardiogram with Doppler and color Doppler. Other Information Quality : Fair INDICATION Chest Pain 2D DIMENSIONS RVDd 2.7 (2.9-3.5cm) Left Atrium(2D) 2.8 (1.6-4.0cm) IVSd 1.0 (0.7-1.1cm) Aortic Root(2D) 3.1 (2.0-3.7cm) LVDd 4.9 (3.9-5.9cm) LVOT Diameter 2.0 (1.8-2.4cm) PWd 1.1 (0.7-1.1cm) LVDs 3.0 (2.5-4.0cm) FS (%) 30.0 % SV 78.1 ml LVEF(%) 60.0 (>50%) Aortic Valve AoV Peak Zana. 99.6cm/s AoV VTI 19.2cm AO Peak GR. 4.0mmHg LVOT Peak Zana. 64.3cm/s LVOT VTI 19.70cm AO Mean GR. 2mmHg CHESTER (VMAX) 2.13cm2 CHESTER (VTI) 3.38cm2 Mitral Valve MV E Velocity 47.2cm/s MV DECEL TIME 373ms MV A Velocity 72.6cm/s MV PHT 108ms E/A Ratio 0.7 MVA (PHT) 2.03cm2 TDI E/Lateral E' 7.3 E/Medial E' 10.0 Tricuspid Valve TR P. Velocity 243cm/s RAP ESTIMATE 3mmHg TR Peak Gr. 24mmHg RVSP 27mmHg Pulmonary Vein S1 Velocity 64.1cm/s D2 Velocity 36.0cm/s PVa duration 162msec LEFT VENTRICLE The left ventricle is normal size. There is normal left ventricular wall thickness. The left ventricular systolic function is normal. The Ejection Fraction is 55-60%. There is normal LV segmental wall motion. Transmitral Doppler flow pattern is Grade I-abnormal relaxation pattern. RIGHT VENTRICLE The right ventricle is normal size. The right ventricular systolic function is normal. ATRIA The left atrium size is normal. The right atrium size is normal. The interatrial septum is intact with no evidence for an atrial septal defect or patent foramen ovale as noted on 2-D or Doppler imaging. AORTIC VALVE The aortic valve is calcified but opens well. Doppler and Color Flow revealed trace to mild aortic regurgitation. There is no significant aortic valvular stenosis. MITRAL VALVE The mitral valve is normal in structure and function. There is no evidence of mitral valve prolapse. There is no mitral valve stenosis. Doppler and Color Flow revealed no mitral valve regurgitation noted. TRICUSPID VALVE The tricuspid valve is normal in structure and function. Doppler and Color Flow revealed mild tricuspid regurgitation. The PA pressure was estimated at 27 mmHg. There is no tricuspid valve stenosis. PULMONIC VALVE The pulmonary valve is normal in structure and function. Doppler and Color Flow revealed no pulmonic valvular regurgitation. There is no pulmonic valvular stenosis. GREAT VESSELS The aortic root is normal in size. The ascending aorta is normal in size. The IVC is normal in size and collapses >50% with inspiration. PERICARDIAL EFFUSION There is no evidence of significant pericardial effusion. Critical Notification Critical Value: No <Conclusion> The left ventricular systolic function is normal. The Ejection Fraction is 55-60%. There is normal LV segmental wall motion. Transmitral Doppler flow pattern is Grade I-abnormal relaxation pattern. Trace to mild aortic regurgitation. Mild tricuspid regurgitation. The PA pressure was estimated at 27 mmHg. There is no evidence of significant pericardial effusion. DICTATED and SIGNED BY: EWA CHENG MD DATE: 01/04/17 1400 CC: PILI DEL VALLE APRN; JT KATZ MD; EWA CHENG MD ~ VTE Prophylaxis Ordered VTE Prophylaxis Devices: No VTE Pharmacological Prophylaxi: Yes Assessment/Plan Assessment/Plan Impression: Chest pain, rule out acute myocardial infarction MORBID OBESITY Elevated d-dimer No evidence of pulmonary embolism. cta chest 04/30 Faint airspace opacities identified in the right upper lobe, right middle lobe and left lingula likely atelectasis CVC BED ADMITTED serial troponin i cardiology consult incentive spirometry PO PROTONIX D/W RN DVT PROPHYLAXIS Justicifation of Admission Dx: Justifications for Admission: Justification of Admission Dx: Yes Aspiration Pneumonia: Chronic Lung Disease Angina: [place] Worsening of Sym Hypertension: [place] Worsening of Sym Comments: ADMITTED WITH ABGINA R/O ANNA KURTZ MD May 01, 2020 11:09
[2020-05-01] MEDS ORDERED: DOCUSATE SODIUM 100 MG CAPSULE. PO PRN ×2 (11:15→17:15)
[2020-05-01] MEDS: hydroCHLOROthiazide 12.5 MG CAPSULE PO SCH (12:00)
[2020-05-01] MEDS: ASPIRIN ENTERIC COATED 81 MG TABLET.DR. PO SCH (12:15)
[2020-05-01] MEDS: POTASSIUM CHLORIDE 20 MEQ TABLET.ER. PO SCH (12:16)
[2020-05-01] MEDS: amLODIPine BESYLATE 10 MG TABLET PO SCH (12:17)
[2020-05-01] MEDS: FERROUS SULFATE 325 MG TABLET. PO SCH (12:17)
[2020-05-01] MEDS: CHOLECALCIFEROL (VITAMIN D3) 1,000 UNIT TABLET PO SCH (12:17)
--- NOTE | 2020-05-01 13:00 | NUR ---
Roberta 1.1, hold HCTZ per Dr. Rodriguez.
--- NOTE | 2020-05-01 13:16 | PDOC2 ---
CONSULT Date of Consult Date of Consult DATE: 05/01/20 TIME: 13:16 Reason for Consult Reason for Consult: Chest pain Referring Physician Referring Physician: Dr. Rodriguez Identification/Chief Complaint Chief Complaint Chest pain Source Source: Chart review, Patient History of Present Illness Reason for Visit: 74-year-old female presented with retrosternal chest pain that she described as pressure-like sensation, 8/10 severity, waxing and waning since yesterday. She denied any exertional component. She also denied any orthopnea/PND, palpitations or syncope. She was apparently told that she had coronary vasospasm in 2001 when cardiac catheterization did not show any significant coronary artery stenosis. Of note, she was recently evaluated at [facility] for acute viral syndrome in February 2020 when COVID test was negative. Past Medical History Cardiovascular: HTN Pulmonary: No pertinent hx CENTRAL NERVOUS SYSTEM: Other GI: GERD Heme/Onc: No pertinent hx Psych: No pertinent hx Musculoskeletal: Osteoarthritis Rheumatologic: No pertinent hx Infectious disease: No pertinent hx Renal/: No pertinent hx Endocrine: Osteopenia Past Surgical History Past Surgical History: Hysterectomy, Other Family History Family History: Coronary Artery Disease Social History ALCOHOL: none Drugs: None Lives: with Family Current Problem List Problem List Problems Medical Problems: (1) Chest pain, rule out acute myocardial infarction Status: Acute (2) Elevated d-dimer Status: Acute Current Medications Current Medications Current Medications Aspirin (Jan Aspirin) 325 mg 1X ONCE PO ; Start 05/01/20 at 00:30; Stop 05/01/20 at 00:23; Status DC Sodium Chloride 1,000 ml @ 1,000 mls/hr 1X ONCE IV Last administered on 05/01/20at 00:44; Start 05/01/20 at 00:30; Stop 05/01/20 at 01:29; Status DC Aspirin (Aspirin Chewable) 243 mg 1X ONCE PO Last administered on 05/01/20at 00:44; Start 05/01/20 at 01:00; Stop 05/01/20 at 01:01; Status DC Iohexol (Omnipaque 350 Mg/ml) 90 ml 1X ONCE IV Last administered on 05/01/20at 01:35; Start 05/01/20 at 02:00; Stop 05/01/20 at 02:01; Status DC Info (CONTRAST GIVEN -- Rx MONITORING) 1 each PRN DAILY PRN MC SEE COMMENTS; Start 05/01/20 at 01:30; Stop 05/03/20 at 01:29 Ondansetron HCl (Zofran) 4 mg PRN Q8HRS PRN IV NAUSEA/VOMITING 1ST CHOICE; Start 05/01/20 at 01:45; Stop 05/02/20 at 01:44 Fentanyl Citrate (Fentanyl 2ml Vial) 25 mcg PRN Q2HRS PRN IV SEVERE PAIN 7-10 Last administered on 05/01/20at 12:18; Start 05/01/20 at 01:45 Potassium Chloride (Klor-Con) 20 meq 1X ONCE PO Last administered on 05/01/20at 12:16; Start 05/01/20 at 11:00; Stop 05/01/20 at 11:05; Status DC Amlodipine Besylate (Norvasc) 10 mg DAILY PO Last administered on 05/01/20at 12:17; Start 05/01/20 at 12:00 Aspirin (Ecotrin) 81 mg DAILY PO Last administered on 05/01/20at 12:15; Start 05/01/20 at 12:00 Docusate Sodium (Colace) 100 mg PRN DAILY PRN PO CONSTIPATION Last administered on 05/01/20at 12:17; Start 05/01/20 at 11:15 Vitamin D (Vitamin D3) 1,000 unit DAILY PO Last administered on 05/01/20at 12:17; Start 05/01/20 at 12:00 Ferrous Sulfate (Feosol) 325 mg DAILY PO Last administered on 05/01/20at 12:17; Start 05/01/20 at 12:00 Potassium Chloride (Klor-Con) 20 meq DAILY08 PO Last administered on 05/01/20at 12:16; Start 05/01/20 at 12:00 Hydrochlorothiazide (Microzide) 12.5 mg DAILY PO ; Start 05/01/20 at 12:00 Active Scripts Active Reported Amoxicillin 500 Mg Capsule 1 Cap PO Q8HRS 10 Days Docusate Sodium 100 Mg Capsule 1 Cap PO PRN DAILY PRN 30 Days Feosol (Ferrous Sulfate) 325 Mg Tablet 1 Tab PO DAILY 30 Days Hydrochlorothiazide Tablet (Hydrochlorothiazide) 12.5 Mg Tablet 12.5 Mg PO DAILY Potassium Chloride (Potassium Chloride) 20 Meq Tablet.er 20 Meq PO DAILY08 Vitamin D2 (Ergocalciferol (Vitamin D2)) 1,250 Mcg Capsule 1,250 Mcg PO EVERY OTHER WEEK Aspir 81 (Aspirin) 81 Mg Tablet.dr 1 Tab PO DAILY Klor-Con M20 (Potassium Chloride) 20 Meq Tab.er.prt 20 Meq PO PRN DAILY PRN Amlodipine Besylate 10 Mg Tablet 10 Mg PO DAILY Allergies Allergies: Coded Allergies: EVE Inhibitors (Verified Allergy, Severe, SWELLING ON FACE /THROAT, 05/17/15) codeine (Verified Adverse Reaction, Intermediate, nausea/vomitting, 05/17/15) ROS PSYCHOLOGICAL ROS: No: Hallucinations Eyes: No Loss of vision HEENT: No: Epistaxis Respiratory: No: Hemoptysis, Shortness of breath Cardiovascular: yes Chest Pain Gastrointestinal: No Nausea, No Vomiting Genitourinary: No Hematuria Neurological: No Seizures Skin: No Rash Physical Exam General: Alert, Oriented X3 HEENT: Atraumatic Lungs: Clear to auscultation Heart: Regular rate Abdomen: Soft, No tenderness Extremities: No edema Neuro: Normal speech Psych/Mental Status: Mood NL Vitals VITALS Vital Signs Date Time Temp Pulse Resp B/P (MAP) Pulse Ox O2 Delivery O2 Flow Rate FiO2 05/01/20 12:18 18 99 Room Air 05/01/20 12:17 62 196/86 05/01/20 11:03 97.6 97.6 Labs Labs Laboratory Tests Test 04/30/20 23:53 05/01/20 00:40 05/01/20 05:00 05/01/20 07:45 White Blood Count 5.6 x10^3/uL (4.0-11.0) Red Blood Count 4.17 x10^6/uL (3.50-5.40) Hemoglobin 11.5 g/dL (12.0-15.5) Hematocrit 34.1 % (36.0-47.0) Mean Corpuscular Volume 82 fL (79-100) Mean Corpuscular Hemoglobin 28 pg (25-35) Mean Corpuscular Hemoglobin Concent 34 g/dL (31-37) Red Cell Distribution Width 16.4 % (11.5-14.5) Platelet Count 332 x10^3/uL (140-400) Neutrophils (%) (Auto) 41 % (31-73) Lymphocytes (%) (Auto) 43 % (24-48) Monocytes (%) (Auto) 12 % (0-9) Eosinophils (%) (Auto) 2 % (0-3) Basophils (%) (Auto) 2 % (0-3) Neutrophils # (Auto) 2.3 x10^3/uL (1.8-7.7) Lymphocytes # (Auto) 2.4 x10^3/uL (1.0-4.8) Monocytes # (Auto) 0.7 x10^3/uL (0.0-1.1) Eosinophils # (Auto) 0.1 x10^3/uL (0.0-0.7) Basophils # (Auto) 0.1 x10^3/uL (0.0-0.2) Prothrombin Time 13.3 SEC (11.7-14.0) Prothromb Time International Ratio 1.1 (0.8-1.1) Activated Partial Thromboplast Time 35 SEC (24-38) D-Dimer (Hodan) 0.79 ug/mlFEU (0.00-0.50) Sodium Level 136 mmol/L (136-145) Potassium Level 3.4 mmol/L (3.5-5.1) Chloride Level 100 mmol/L (98-107) Carbon Dioxide Level 28 mmol/L (21-32) Anion Gap 8 (6-14) Blood Urea Nitrogen 13 mg/dL (7-20) Creatinine 1.1 mg/dL (0.6-1.0) Estimated GFR (Cockcroft-Gault) 58.6 BUN/Creatinine Ratio 12 (6-20) Glucose Level 119 mg/dL (70-99) Calcium Level 9.3 mg/dL (8.5-10.1) Magnesium Level 1.9 mg/dL (1.8-2.4) Total Bilirubin 0.3 mg/dL (0.2-1.0) Aspartate Amino Transf (AST/SGOT) 18 U/L (15-37) Alanine Aminotransferase (ALT/SGPT) 20 U/L (14-59) Alkaline Phosphatase 66 U/L (46-116) Creatine Kinase 93 U/L (26-192) Creatine Kinase MB (Mass) 0.8 ng/mL (0.0-3.6) Creatine Kinase MB Relative Index 0.9 % (0-4) Troponin I Quantitative < 0.017 ng/mL (0.000-0.055) < 0.017 ng/mL (0.000-0.055) < 0.017 ng/mL (0.000-0.055) MQ-Mxa-Y-Type Natriuretic Peptide 83 pg/mL (0-449) Total Protein 7.3 g/dL (6.4-8.2) Albumin 3.4 g/dL (3.4-5.0) Albumin/Globulin Ratio 0.9 (1.0-1.7) Lipase 162 U/L (73-393) Urine Collection Type Unknown Urine Color Yellow Urine Clarity Clear Urine pH 7.0 (<5.0-8.0) Urine Specific [place] 1.010 (1.000-1.030) Urine Protein Negative mg/dL (NEG-TRACE) Urine Glucose (UA) Negative mg/dL (NEG) Urine Ketones (Stick) Negative mg/dL (NEG) Urine Blood Negative (NEG) Urine Nitrite Negative (NEG) Urine Bilirubin Negative (NEG) Urine Urobilinogen Dipstick 0.2 mg/dL (0.2 mg/dL) Urine Leukocyte Esterase Negative (NEG) Urine RBC Occ /HPF (0-2) Urine WBC Occ /HPF (0-4) Urine Squamous Epithelial Cells Few /LPF Urine Bacteria 0 /HPF (0-FEW) Urine Mucus Slight /LPF Laboratory Tests Test 04/30/20 23:53 05/01/20 00:40 05/01/20 05:00 05/01/20 07:45 White Blood Count 5.6 x10^3/uL (4.0-11.0) Red Blood Count 4.17 x10^6/uL (3.50-5.40) Hemoglobin 11.5 g/dL (12.0-15.5) Hematocrit 34.1 % (36.0-47.0) Mean Corpuscular Volume 82 fL (79-100) Mean Corpuscular Hemoglobin 28 pg (25-35) Mean Corpuscular Hemoglobin Concent 34 g/dL (31-37) Red Cell Distribution Width 16.4 % (11.5-14.5) Platelet Count 332 x10^3/uL (140-400) Neutrophils (%) (Auto) 41 % (31-73) Lymphocytes (%) (Auto) 43 % (24-48) Monocytes (%) (Auto) 12 % (0-9) Eosinophils (%) (Auto) 2 % (0-3) Basophils (%) (Auto) 2 % (0-3) Neutrophils # (Auto) 2.3 x10^3/uL (1.8-7.7) Lymphocytes # (Auto) 2.4 x10^3/uL (1.0-4.8) Monocytes # (Auto) 0.7 x10^3/uL (0.0-1.1) Eosinophils # (Auto) 0.1 x10^3/uL (0.0-0.7) Basophils # (Auto) 0.1 x10^3/uL (0.0-0.2) Prothrombin Time 13.3 SEC (11.7-14.0) Prothromb Time International Ratio 1.1 (0.8-1.1) Activated Partial Thromboplast Time 35 SEC (24-38) D-Dimer (Hodan) 0.79 ug/mlFEU (0.00-0.50) Sodium Level 136 mmol/L (136-145) Potassium Level 3.4 mmol/L (3.5-5.1) Chloride Level 100 mmol/L (98-107) Carbon Dioxide Level 28 mmol/L (21-32) Anion Gap 8 (6-14) Blood Urea Nitrogen 13 mg/dL (7-20) Creatinine 1.1 mg/dL (0.6-1.0) Estimated GFR (Cockcroft-Gault) 58.6 BUN/Creatinine Ratio 12 (6-20) Glucose Level 119 mg/dL (70-99) Calcium Level 9.3 mg/dL (8.5-10.1) Magnesium Level 1.9 mg/dL (1.8-2.4) Total Bilirubin 0.3 mg/dL (0.2-1.0) Aspartate Amino Transf (AST/SGOT) 18 U/L (15-37) Alanine Aminotransferase (ALT/SGPT) 20 U/L (14-59) Alkaline Phosphatase 66 U/L (46-116) Creatine Kinase 93 U/L (26-192) Creatine Kinase MB (Mass) 0.8 ng/mL (0.0-3.6) Creatine Kinase MB Relative Index 0.9 % (0-4) Troponin I Quantitative < 0.017 ng/mL (0.000-0.055) < 0.017 ng/mL (0.000-0.055) < 0.017 ng/mL (0.000-0.055) GW-Jsg-O-Type Natriuretic Peptide 83 pg/mL (0-449) Total Protein 7.3 g/dL (6.4-8.2) Albumin 3.4 g/dL (3.4-5.0) Albumin/Globulin Ratio 0.9 (1.0-1.7) Lipase 162 U/L (73-393) Urine Collection Type Unknown Urine Color Yellow Urine Clarity Clear Urine pH 7.0 (<5.0-8.0) Urine Specific [place] 1.010 (1.000-1.030) Urine Protein Negative mg/dL (NEG-TRACE) Urine Glucose (UA) Negative mg/dL (NEG) Urine Ketones (Stick) Negative mg/dL (NEG) Urine Blood Negative (NEG) Urine Nitrite Negative (NEG) Urine Bilirubin Negative (NEG) Urine Urobilinogen Dipstick 0.2 mg/dL (0.2 mg/dL) Urine Leukocyte Esterase Negative (NEG) Urine RBC Occ /HPF (0-2) Urine WBC Occ /HPF (0-4) Urine Squamous Epithelial Cells Few /LPF Urine Bacteria 0 /HPF (0-FEW) Urine Mucus Slight /LPF Assessment/Plan Assessment/Plan 1. Chest pain with mixed features. Myocardial infarction has been ruled out. She was diagnosed with coronary artery vasospasm in 2001 as stated above. 2D echo in 2017 showed LVEF 55 to 60%. We will obtain Lexiscan nuclear stress test to rule out ischemia. 2. Accelerated hypertension: Heart rate borderline low and patient allergy to EVE inhibitors. Continue amlodipine and start labetalol for better blood pressure control. 3. Hypokalemia: Replace orally Thank you for your consultation EWA CHENG MD May 01, 2020 13:16
[2020-05-01] MEDS: LABETALOL HCL 200 MG TABLET PO SCH ×2 (14:34→22:40)
[2020-05-01 14:49] VITALS: BP 191/79
--- NOTE | 2020-05-01 15:22 | EKG ---
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
[2020-05-01] MEDS ORDERED: NITROGLYCERIN SUBLINGUAL 0.4 MG BOTTLE OF 25. SL PRN (17:00)
[2020-05-01] MEDS ORDERED: diphenhydrAMINE 50 MG/ML VIAL IVP PRN (17:15)
[2020-05-01] MEDS ORDERED: SODIUM PHOSPHATES 19/7GM 133 ML ENEMA. PR PRN (17:15)
[2020-05-01] MEDS ORDERED: cloNIDine HCL 0.1 MG TABLET PO PRN (17:15)
[2020-05-01] MEDS ORDERED: 0.9 % SODIUM CHLORIDE 10 ML DISP.SYRIN. IV PRN (17:15)
[2020-05-01] MEDS ORDERED: ZOLPIDEM 5 MG TABLET. PO PRN (17:15)
[2020-05-01] MEDS ORDERED: LORazepam 0.5 MG TABLET PO PRN (17:15)
[2020-05-01] MEDS ORDERED: ALBUTEROL SULFATE 2.5 MG/3 ML NEBU. NEB PRN (17:15)
[2020-05-01] MEDS ORDERED: guaiFENesin ORAL 200 MG/10 ML LIQUID. PO PRN (17:15)
[2020-05-01] MEDS ORDERED: ACETAMINOPHEN 325 MG TABLET. PO PRN (17:15)
[2020-05-01] MEDS: PANTOPRAZOLE 40 MG TABLET.DR. PO SCH (17:38)
[2020-05-01] MEDS ORDERED: ENOXAPARIN 40 MG/0.4 ML SYRINGE. SQ SCH (18:00)
[2020-05-01 19:00] VITALS: BP 118/57
[2020-05-01 23:00] VITALS: BP 115/63
[2020-05-02 00:49] LABS: CHOLESTEROL/HDL RATIO 4.3
[2020-05-02 02:35] VITALS: BP 99/54
[2020-05-02 07:00] VITALS: BP 123/60
--- NOTE | 2020-05-02 07:13 | RAD ---
EXAM: Bilateral lower extremity venous Doppler sonogram. HISTORY: Pain and swelling. TECHNIQUE: Capone scale and color Doppler sonographic evaluation of the bilateral lower extremity veins with spectral waveform analysis was performed. FINDINGS: There is normal color flow, normal compressibility and there are normal spectral waveforms in the common femoral, superficial femoral, popliteal, posterior tibial and greater saphenous veins. IMPRESSION: No Doppler evidence of lower extremity deep venous thrombosis. Electronically signed by: Sari Knapp MD (05/02/2020 7:10 AM) [id number]
[2020-05-02] MEDS ORDERED: REGADENOSON 0.4 MG/5 ML DISP.SYRIN. IV ONE (08:15)
[2020-05-02] MEDS: CHOLECALCIFEROL (VITAMIN D3) 1,000 UNIT TABLET PO SCH (09:00)
--- NOTE | 2020-05-02 09:07 | PDOC ---
PROGRESS NOTES Chief Complaint Chief Complaint A/P: Chest pain with mixed features. Myocardial infarction has been ruled out. She was diagnosed with coronary artery vasospasm in 2001 as stated above. 2D echo i n 2016 showed LVEF 55 to 60%. We will obtain Lexiscan nuclear stress test to rule out ischemia. Accelerated hypertension Hypokalemia H/o recent SARS-CoV-2 (COVID 19) infection 02/13/2020 Right lower lobe atelectasis vs infiltrate Essential hypertension History of dyslipidemia History of Present Illness History of Present Illness Ms Saucedo is a 74 yo F w/ PMHx who comes to ED c/o chest pain. CT with no evidence of pulmonary embolism, but faint airspace opacities identified in the right upper lobe, right middle lobe and left lingula likely atelectasis or infiltrates. She just completed her nuclear medicine stress test. She is feeling better says her pain is 0.5/10 today, no cough or shortness of breath. She is eating breakfast, and asking if she can discharge home today. Vitals Vitals Vital Signs Date Time Temp Pulse Resp B/P (MAP) Pulse Ox O2 Delivery O2 Flow Rate FiO2 05/02/20 07:00 97.9 73 12 123/60 (81) 98 Room Air 97.9 Physical Exam General: Alert, Oriented X3, Cooperative, No acute distress Heart: Regular rate Lungs: Wheezing, Crackles Abdomen: Soft, No tenderness Extremities: No cyanosis Assessment and Plan Assessmemt and Plan Problems Medical Problems: (1) Chest pain, rule out acute myocardial infarction Status: Acute (2) Elevated d-dimer Status: Acute Comment Review of Relevant I have reviewed the following items angel (where applicable) has been applied. Labs Laboratory Tests Test 04/30/20 23:53 05/01/20 00:40 05/01/20 05:00 05/01/20 07:45 White Blood Count 5.6 x10^3/uL (4.0-11.0) Red Blood Count 4.17 x10^6/uL (3.50-5.40) Hemoglobin 11.5 g/dL (12.0-15.5) Hematocrit 34.1 % (36.0-47.0) Mean Corpuscular Volume 82 fL (79-100) Mean Corpuscular Hemoglobin 28 pg (25-35) Mean Corpuscular Hemoglobin Concent 34 g/dL (31-37) Red Cell Distribution Width 16.4 % (11.5-14.5) Platelet Count 332 x10^3/uL (140-400) Neutrophils (%) (Auto) 41 % (31-73) Lymphocytes (%) (Auto) 43 % (24-48) Monocytes (%) (Auto) 12 % (0-9) Eosinophils (%) (Auto) 2 % (0-3) Basophils (%) (Auto) 2 % (0-3) Neutrophils # (Auto) 2.3 x10^3/uL (1.8-7.7) Lymphocytes # (Auto) 2.4 x10^3/uL (1.0-4.8) Monocytes # (Auto) 0.7 x10^3/uL (0.0-1.1) Eosinophils # (Auto) 0.1 x10^3/uL (0.0-0.7) Basophils # (Auto) 0.1 x10^3/uL (0.0-0.2) Prothrombin Time 13.3 SEC (11.7-14.0) Prothromb Time International Ratio 1.1 (0.8-1.1) Activated Partial Thromboplast Time 35 SEC (24-38) D-Dimer (Hodan) 0.79 ug/mlFEU (0.00-0.50) Sodium Level 136 mmol/L (136-145) Potassium Level 3.4 mmol/L (3.5-5.1) Chloride Level 100 mmol/L (98-107) Carbon Dioxide Level 28 mmol/L (21-32) Anion Gap 8 (6-14) Blood Urea Nitrogen 13 mg/dL (7-20) Creatinine 1.1 mg/dL (0.6-1.0) Estimated GFR (Cockcroft-Gault) 58.6 BUN/Creatinine Ratio 12 (6-20) Glucose Level 119 mg/dL (70-99) Calcium Level 9.3 mg/dL (8.5-10.1) Magnesium Level 1.9 mg/dL (1.8-2.4) Total Bilirubin 0.3 mg/dL (0.2-1.0) Aspartate Amino Transf (AST/SGOT) 18 U/L (15-37) Alanine Aminotransferase (ALT/SGPT) 20 U/L (14-59) Alkaline Phosphatase 66 U/L (46-116) Creatine Kinase 93 U/L (26-192) Creatine Kinase MB (Mass) 0.8 ng/mL (0.0-3.6) Creatine Kinase MB Relative Index 0.9 % (0-4) Troponin I Quantitative < 0.017 ng/mL (0.000-0.055) < 0.017 ng/mL (0.000-0.055) < 0.017 ng/mL (0.000-0.055) QD-Nvl-H-Type Natriuretic Peptide 83 pg/mL (0-449) Total Protein 7.3 g/dL (6.4-8.2) Albumin 3.4 g/dL (3.4-5.0) Albumin/Globulin Ratio 0.9 (1.0-1.7) Lipase 162 U/L (73-393) Urine Collection Type Unknown Urine Color Yellow Urine Clarity Clear Urine pH 7.0 (<5.0-8.0) Urine Specific [place] 1.010 (1.000-1.030) Urine Protein Negative mg/dL (NEG-TRACE) Urine Glucose (UA) Negative mg/dL (NEG) Urine Ketones (Stick) Negative mg/dL (NEG) Urine Blood Negative (NEG) Urine Nitrite Negative (NEG) Urine Bilirubin Negative (NEG) Urine Urobilinogen Dipstick 0.2 mg/dL (0.2 mg/dL) Urine Leukocyte Esterase Negative (NEG) Urine RBC Occ /HPF (0-2) Urine WBC Occ /HPF (0-4) Urine Squamous Epithelial Cells Few /LPF Urine Bacteria 0 /HPF (0-FEW) Urine Mucus Slight /LPF Triglycerides Level 55 mg/dL (0-150) Cholesterol Level 210 mg/dL (0-200) LDL Cholesterol, Calculated 150 mg/dL (0-100) VLDL Cholesterol, Calculated 11 mg/dL (0-40) Non-HDL Cholesterol Calculated 161 mg/dL (0-129) HDL Cholesterol 49 mg/dL (40-60) Cholesterol/HDL Ratio 4.3 Medications Current Medications Aspirin (Jan Aspirin) 325 mg 1X ONCE PO ; Start 05/01/20 at 00:30; Stop 05/01/20 at 00:23; Status DC Sodium Chloride 1,000 ml @ 1,000 mls/hr 1X ONCE IV Last administered on 05/01/20at 00:44; Start 05/01/20 at 00:30; Stop 05/01/20 at 01:29; Status DC Aspirin (Aspirin Chewable) 243 mg 1X ONCE PO Last administered on 05/01/20at 00:44; Start 05/01/20 at 01:00; Stop 05/01/20 at 01:01; Status DC Iohexol (Omnipaque 350 Mg/ml) 90 ml 1X ONCE IV Last administered on 05/01/20at 01:35; Start 05/01/20 at 02:00; Stop 05/01/20 at 02:01; Status DC Info (CONTRAST GIVEN -- Rx MONITORING) 1 each PRN DAILY PRN MC SEE COMMENTS; Start 05/01/20 at 01:30; Stop 05/03/20 at 01:29 Ondansetron HCl (Zofran) 4 mg PRN Q8HRS PRN IV NAUSEA/VOMITING 1ST CHOICE; Start 05/01/20 at 01:45; Stop 05/02/20 at 01:44; Status DC Fentanyl Citrate (Fentanyl 2ml Vial) 25 mcg PRN Q2HRS PRN IV SEVERE PAIN 7-10 Last administered on 05/01/20at 17:36; Start 05/01/20 at 01:45 Potassium Chloride (Klor-Con) 20 meq 1X ONCE PO Last administered on 05/01/20at 12:16; Start 05/01/20 at 11:00; Stop 05/01/20 at 11:05; Status DC Amlodipine Besylate (Norvasc) 10 mg DAILY PO Last administered on 05/01/20at 12:17; Start 05/01/20 at 12:00 Aspirin (Ecotrin) 81 mg DAILY PO Last administered on 05/01/20at 12:15; Start 05/01/20 at 12:00 Docusate Sodium (Colace) 100 mg PRN DAILY PRN PO CONSTIPATION Last administered on 05/01/20 12:17; Start 05/01/20 at 11:15; Stop 05/01/20 at 17:06; Status DC Vitamin D (Vitamin D3) 1,000 unit DAILY PO Last administered on 05/01/20at 12:17; Start 05/01/20 at 12:00 Ferrous Sulfate (Feosol) 325 mg DAILY PO Last administered on 05/01/20at 12:17; Start 05/01/20 at 12:00 Potassium Chloride (Klor-Con) 20 meq DAILY08 PO Last administered on 05/01/20at 12:16; Start 05/01/20 at 12:00 Hydrochlorothiazide (Microzide) 12.5 mg DAILY PO ; Start 05/01/20 at 12:00 Labetalol HCl (Trandate) 200 mg BID PO Last administered on 05/01/20at 22:40; Start 05/01/20 at 13:30 Nitroglycerin (Nitrostat) 0.4 mg PRN Q5MIN PRN SL CHEST PAIN Last administered on 05/01/20at 17:38; Start 05/01/20 at 17:00 Sodium Chloride (Normal Saline Flush) 3 ml QSHIFT PRN IV AFTER MEDS AND BLOOD DRAWS; Start 05/01/20 at 17:15 Ondansetron HCl (Zofran) 4 mg PRN Q4HRS PRN IV NAUSEA/VOMITING; Start 05/01/20 at 17:15 Zolpidem Tartrate (Ambien) 5 mg PRN QHS PRN PO INSOMNIA; Start 05/01/20 at 17:15 Acetaminophen (Tylenol) 650 mg PRN Q4HRS PRN PO TEMP OVER 100.4F OR MILD PAIN; Start 05/01/20 at 17:15 Clonidine HCl (Catapres) 0.1 mg PRN Q6HRS PRN PO SBP>160 OR DBP>90; Start 05/01/20 at 17:15 Sodium Monofluorophosphate (Fleet Adult) 133 ml PRN DAILY PRN [place] CONSTIPATION; Start 05/01/20 at 17:15 Diphenhydramine HCl (Benadryl) 25 mg PRN Q4HRS PRN IVP ITCHING; Start 05/01/20 at 17:15 Docusate Sodium (Colace) 100 mg PRN BID PRN PO HARD STOOLS; Start 05/01/20 at 17:15 Albuterol Sulfate (Ventolin Neb Soln) 2.5 mg PRN Q4HRS PRN NEB SHORTNESS OF BREATH; Start 05/01/20 at 17:15 Guaifenesin (Robitussin) 200 mg PRN Q4HRS PRN PO COUGH; Start 05/01/20 at 17:15 Lorazepam (Ativan) 0.5 mg PRN Q4HRS PRN PO ANXIETY / AGITATION; Start 05/01/20 at 17:15 Enoxaparin Sodium (Lovenox 40mg Syringe) 40 mg Q24H SQ Last administered on 05/01/20at 17:37; Start 05/01/20 at 18:00 Pantoprazole Sodium (Protonix) 40 mg DAILYAC PO Last administered on 05/01/20at 17:38; Start 05/01/20 at 17:30 Regadenoson (Lexiscan) 0.4 mg 1X ONCE IV ; Start 05/02/20 at 08:15; Stop 05/02/20 at 08:16; Status DC Active Scripts Active Reported Amoxicillin 500 Mg Capsule 1 Cap PO Q8HRS 10 Days Docusate Sodium 100 Mg Capsule 1 Cap PO PRN DAILY PRN 30 Days Feosol (Ferrous Sulfate) 325 Mg Tablet 1 Tab PO DAILY 30 Days Hydrochlorothiazide Tablet (Hydrochlorothiazide) 12.5 Mg Tablet 12.5 Mg PO DAILY Potassium Chloride (Potassium Chloride) 20 Meq Tablet.er 20 Meq PO DAILY08 Vitamin D2 (Ergocalciferol (Vitamin D2)) 1,250 Mcg Capsule 1,250 Mcg PO EVERY OTHER WEEK Aspir 81 (Aspirin) 81 Mg Tablet.dr 1 Tab PO DAILY Klor-Con M20 (Potassium Chloride) 20 Meq Tab.er.prt 20 Meq PO PRN DAILY PRN Amlodipine Besylate 10 Mg Tablet 10 Mg PO DAILY Vitals/I & O Vital Sign - Last 24 Hours 05/01/20 05/01/20 05/01/20 05/01/20 11:03 12:17 12:18 12:48 Temp 97.6 97.6 Pulse 62 62 Resp 18 18 B/P (MAP) 196/86 (122) 196/86 Pulse Ox 99 99 99 O2 Delivery Room Air Room Air Room Air 05/01/20 05/01/20 05/01/20 05/01/20 14:34 14:49 17:36 17:38 Temp 98.3 98.3 Pulse 66 63 74 Resp 19 18 B/P (MAP) 191/79 191/79 (116) 149/67 Pulse Ox 97 97 O2 Delivery Room Air Room Air 05/01/20 05/01/20 05/01/20 05/01/20 18:06 19:00 20:00 20:41 Temp 98.1 98.1 Pulse 78 Resp 18 18 B/P (MAP) 118/57 (77) Pulse Ox 97 97 96 O2 Delivery Room Air Room Air Room Air 05/01/20 05/01/20 05/02/20 05/02/20 22:40 23:00 02:35 07:00 Temp 97.9 97.5 97.9 97.9 97.5 97.9 Pulse 78 77 66 73 Resp 19 18 12 B/P (MAP) 118/57 115/63 (80) 99/54 (69) 123/60 (81) Pulse Ox 96 94 98 O2 Delivery Room Air Room Air Room Air Intake and Output 05/01/20 05/01/20 05/02/20 15:00 23:00 07:00 Intake Total 800 ml 100 ml Output Total 780 ml 250 ml Balance -780 ml 550 ml 100 ml LISA WEBER MD May 02, 2020 09:07
[2020-05-02] MEDS: ASPIRIN ENTERIC COATED 81 MG TABLET.DR. PO SCH (10:07)
[2020-05-02] MEDS: POTASSIUM CHLORIDE 20 MEQ TABLET.ER. PO SCH (10:08)
[2020-05-02] MEDS: LABETALOL HCL 200 MG TABLET PO SCH (10:08)
[2020-05-02] MEDS: PANTOPRAZOLE 40 MG TABLET.DR. PO SCH (10:08)
[2020-05-02] MEDS: FERROUS SULFATE 325 MG TABLET. PO SCH (10:09)
[2020-05-02] MEDS: hydroCHLOROthiazide 12.5 MG CAPSULE PO SCH (10:10)
[2020-05-02 11:00] VITALS: BP 130/62
[2020-05-02 11:01] LABS: CALCIUM 9.2 mg/dL (8.5-10.1); CREATININE 1.1 mg/dL (0.6-1.0); GFR 58.6; MAGNESIUM 1.9 mg/dL (1.8-2.4); POTASSIUM 3.2 mmol/L (3.5-5.1)
[2020-05-02] MEDS: amLODIPine BESYLATE 10 MG TABLET PO SCH (11:34)
[2020-05-02] MEDS ORDERED: POTASSIUM CHLORIDE 20 MEQ TABLET.ER. PO ONE ×2 (12:22→12:30)
--- NOTE | 2020-05-02 12:26 | RAD ---
MR#: [id number] Date of Study: 05/02/2020 Ordering Physician: EWA CHENG, Referring Physician: PRISCILLA RANGEL Tech: RT Dario (R) (N) APPROVED REPORT Test Type: Pharmacological Stress Nurse/Tech: Cydney Khan R.N. Test Indications: chest pain Cardiac History: htn Medications: see emar Medical History: see emr Resting ECG: SR with inverted Ts in V leads Resting Heart Rate: 65 bpm Resting Blood Pressure: 124/60mmHg Nurse/Tech Notes lungs cta, heart tones regular, pt describes very minimal chest pain, less than a 1 Consent: The procedure was explained to the patient in lay terms. Informed consent was witnessed. Parviz eout was entered into [employer]. History and Stress Test performed by LEYLA Thompson Pharm. Details Pharmacologic stress testing was performed using 0.4mg per 5ml of regadenoson given intravenously ove r 7-10 seconds. Stress Symptoms No chest pain or symptoms. POST EXERCISE Reason for Termination: Infusion complete Target HR: No Max HR: 105 bpm Max Blood Pressure: 131/63mmHg Chest Pain: No. Arrhythmia: No. ST Change: No. INTERPRETATION Stress EKG Conclusion: Baseline EKG showed sinus rhythm. No ischemic changes at peak stress. No arr hythmias. Imaging Protocol IMAGE PROTOCOL: Rest Tc-99m/stress Tc-99m 1 day Rest: Stress: Viability: Radiopharm.Tc99m VncqqxieeVs12u Sestamibi Fxig22rLq 33mCi Duration 13min. 13min. Img Date 05/02/2020 05/02/2020 Inj-Img Jjlo73mug. 60min. Rest Admin Site:IV - Left AntecubitalAdministrator:RT Abigail Bishop)(N) Stress Admin Site: IV - Left AntecubitalAdministrator: LEYLA Thompson STRESS DATA End Diast. Vol.42.0mlLVEDV index BSA23.0ml End Syst. Vol.9.0mlLVESV index BSA5.0ml Myocardial Mass92.0gEject. Ubrbyuhg66.0% Stress Scores Regional WT2.00Summed WT9.00 Regional WM0.00Summed WM3.00 Study quality was good. Left Ventricular size was Normal at Rest and Stress. Lung uptake was . Left Ventricular ejection fraction is 78%. The rest and stress images show normal perfusion, normal contraction and thickening. LV Perf. Quant 17 Seg. SSS0.00 17 Seg. SRS10.00 17 Seg. SDS0.00 Stress Defect Extent (% LAD)0.00Rest Defect Extent (% LAD)3.10Rev. Defect Extent (% LAD)0.00 Stress Defect Extent (% LCX) 0.00Rest Defect Extent (% LCX)18.80Rev. Defect Extent (% LCX)0.00 Stress Defect Extent (% RCA)0.00Rest Defect Extent (% RCA)68.90Rev. Defect Extent (% RCA)0.00 Stress Defect Extent (% KELLEY)0.00Rest Defect Extent (% KELLEY)25.40Rev. Defect Extent (% KELLEY)0.00 Conclusion 1. Regadenoson cardioisotope stress test did not show any evidence of ischemia or infarct. 2. Normal left ventricular systolic function with ejection fraction calculated at 78%. 3. Low risk for cardiac events. Signed by : Ewa Cheng, Electronically Approved : 05/02/2020 12:26:18
--- NOTE | 2020-05-02 12:30 | PDOC3 ---
Discharge Summary Visit Information Date of Admission: May 01, 2020 Date of Discharge: May 02, 2020 Admitting Diagnosis: Chest pain Final Diagnosis Problems Medical Problems: (1) Chest pain, rule out acute myocardial infarction Status: Acute (2) Elevated d-dimer Status: Acute Brief Hospital Course Allergies Allergies Coded Allergies Type Severity Reaction Last Updated Verified EVE Inhibitors Allergy Severe SWELLING ON FACE /THROAT 05/17/15 Yes codeine Adverse Reaction Intermediate nausea/vomitting 05/17/15 Yes Vital Signs Vital Signs Date Time Temp Pulse Resp B/P (MAP) Pulse Ox O2 Delivery O2 Flow Rate FiO2 05/02/20 11:34 78 132/65 05/02/20 11:00 98.4 18 98 Room Air 98.4 Lab Results Laboratory Tests Test 04/30/20 23:53 05/01/20 00:40 05/01/20 05:00 05/01/20 07:45 White Blood Count 5.6 x10^3/uL (4.0-11.0) Red Blood Count 4.17 x10^6/uL (3.50-5.40) Hemoglobin 11.5 g/dL (12.0-15.5) Hematocrit 34.1 % (36.0-47.0) Mean Corpuscular Volume 82 fL (79-100) Mean Corpuscular Hemoglobin 28 pg (25-35) Mean Corpuscular Hemoglobin Concent 34 g/dL (31-37) Red Cell Distribution Width 16.4 % (11.5-14.5) Platelet Count 332 x10^3/uL (140-400) Neutrophils (%) (Auto) 41 % (31-73) Lymphocytes (%) (Auto) 43 % (24-48) Monocytes (%) (Auto) 12 % (0-9) Eosinophils (%) (Auto) 2 % (0-3) Basophils (%) (Auto) 2 % (0-3) Neutrophils # (Auto) 2.3 x10^3/uL (1.8-7.7) Lymphocytes # (Auto) 2.4 x10^3/uL (1.0-4.8) Monocytes # (Auto) 0.7 x10^3/uL (0.0-1.1) Eosinophils # (Auto) 0.1 x10^3/uL (0.0-0.7) Basophils # (Auto) 0.1 x10^3/uL (0.0-0.2) Prothrombin Time 13.3 SEC (11.7-14.0) Prothromb Time International Ratio 1.1 (0.8-1.1) Activated Partial Thromboplast Time 35 SEC (24-38) D-Dimer ([place]an) 0.79 ug/mlFEU (0.00-0.50) Sodium Level 136 mmol/L (136-145) Potassium Level 3.4 mmol/L (3.5-5.1) Chloride Level 100 mmol/L (98-107) Carbon Dioxide Level 28 mmol/L (21-32) Anion Gap 8 (6-14) Blood Urea Nitrogen 13 mg/dL (7-20) Creatinine 1.1 mg/dL (0.6-1.0) Estimated GFR (Cockcroft-Gault) 58.6 BUN/Creatinine Ratio 12 (6-20) Glucose Level 119 mg/dL (70-99) Calcium Level 9.3 mg/dL (8.5-10.1) Magnesium Level 1.9 mg/dL (1.8-2.4) Total Bilirubin 0.3 mg/dL (0.2-1.0) Aspartate Amino Transf (AST/SGOT) 18 U/L (15-37) Alanine Aminotransferase (ALT/SGPT) 20 U/L (14-59) Alkaline Phosphatase 66 U/L (46-116) Creatine Kinase 93 U/L (26-192) Creatine Kinase MB (Mass) 0.8 ng/mL (0.0-3.6) Creatine Kinase MB Relative Index 0.9 % (0-4) Troponin I Quantitative < 0.017 ng/mL (0.000-0.055) < 0.017 ng/mL (0.000-0.055) < 0.017 ng/mL (0.000-0.055) OU-Bqd-G-Type Natriuretic Peptide 83 pg/mL (0-449) Total Protein 7.3 g/dL (6.4-8.2) Albumin 3.4 g/dL (3.4-5.0) Albumin/Globulin Ratio 0.9 (1.0-1.7) Lipase 162 U/L (73-393) Urine Collection Type Unknown Urine Color Yellow Urine Clarity Clear Urine pH 7.0 (<5.0-8.0) Urine Specific [place] 1.010 (1.000-1.030) Urine Protein Negative mg/dL (NEG-TRACE) Urine Glucose (UA) Negative mg/dL (NEG) Urine Ketones (Stick) Negative mg/dL (NEG) Urine Blood Negative (NEG) Urine Nitrite Negative (NEG) Urine Bilirubin Negative (NEG) Urine Urobilinogen Dipstick 0.2 mg/dL (0.2 mg/dL) Urine Leukocyte Esterase Negative (NEG) Urine RBC Occ /HPF (0-2) Urine WBC Occ /HPF (0-4) Urine Squamous Epithelial Cells Few /LPF Urine Bacteria 0 /HPF (0-FEW) Urine Mucus Slight /LPF Triglycerides Level 55 mg/dL (0-150) Cholesterol Level 210 mg/dL (0-200) LDL Cholesterol, Calculated 150 mg/dL (0-100) VLDL Cholesterol, Calculated 11 mg/dL (0-40) Non-HDL Cholesterol Calculated 161 mg/dL (0-129) HDL Cholesterol 49 mg/dL (40-60) Cholesterol/HDL Ratio 4.3 Test 05/02/20 10:28 Sodium Level 140 mmol/L (136-145) Potassium Level 3.2 mmol/L (3.5-5.1) Chloride Level 103 mmol/L (98-107) Carbon Dioxide Level 25 mmol/L (21-32) Anion Gap 12 (6-14) Blood Urea Nitrogen 9 mg/dL (7-20) Creatinine 1.1 mg/dL (0.6-1.0) Estimated GFR (Cockcroft-Gault) 58.6 Glucose Level 125 mg/dL (70-99) Calcium Level 9.2 mg/dL (8.5-10.1) Magnesium Level 1.9 mg/dL (1.8-2.4) Procalcitonin < 0.10 ng/mL (0.00-0.10) Laboratory Tests Test 05/02/20 10:28 Sodium Level 140 mmol/L (136-145) Potassium Level 3.2 mmol/L (3.5-5.1) Chloride Level 103 mmol/L (98-107) Carbon Dioxide Level 25 mmol/L (21-32) Anion Gap 12 (6-14) Blood Urea Nitrogen 9 mg/dL (7-20) Creatinine 1.1 mg/dL (0.6-1.0) Estimated GFR (Cockcroft-Gault) 58.6 Glucose Level 125 mg/dL (70-99) Calcium Level 9.2 mg/dL (8.5-10.1) Magnesium Level 1.9 mg/dL (1.8-2.4) Procalcitonin < 0.10 ng/mL (0.00-0.10) Brief Hospital Course Ms Saucedo is a 74 yo F w/ PMHx recent COVID 19 infection, HTN who comes to ED c/o chest pain. Found with BP 217/92, admitted for further care. CT with no evidence of pulmonary embolism, but faint airspace opacities identified in the right upper lobe, right middle lobe and left lingula likely atelectasis or infiltrates. Negative procalcitonin, no pneumonia concern. Her potassium was 3.2, advised to stop HCTZ and start amlodipine for HTN instead. She just completed her nuclear medicine stress test. Conclusion 1. Regadenoson cardioisotope stress test did not show any evidence of ischemia or infarct. 2. Normal left ventricular systolic function with ejection fraction calculated at 78%. 3. Low risk for cardiac events. She is feeling better says her pain is 0.5/10 today after starting on PPI, no cough or shortness of breath. She is eating breakfast, and asking if she can discharge home today. Consults: Cardiology. Problem list: Chest pain with mixed features. Myocardial infarction has been ruled out. She was diagnosed with coronary artery vasospasm in 2001 as stated above. 2D echo in 2017 showed LVEF 55 to 60%. We will obtain Lexiscan nuclear stress test to rule out ischemia. Accelerated hypertension/Hypertensive urgency Hypokalemia - replaced. Stop HCTZ H/o recent SARS-CoV-2 (COVID 19) infection 02/13/2020 Right lower lobe atelectasis vs infiltrate Essential hypertension History of dyslipidemia Greater than 30 minutes spent on d/c Discharge Information Condition at Discharge: Improved Follow Up: Weeks (1) Disposition/Orders: D/C to Home Scheduled Amlodipine Besylate (Amlodipine Besylate) 10 Mg Tablet, 10 MG PO DAILY for HTN for 90 Days, #90 Prescribed by: LISA WEBER MD on 05/02/20 1236 Aspirin (Aspir 81) 81 Mg Tablet.dr, 1 TAB PO DAILY, #30 Ref 5 (Reported) Entered as Reported by: ERICA TIDWELL on 01/04/17 1536 Last Action: Continued on 05/01/20 1111 by ANNA OAKES MD Ergocalciferol (Vitamin D2) (Vitamin D2) 1,250 Mcg Capsule, 1,250 MCG PO every other week for supplement, (Reported) Entered as Reported by: MONAE RING on 05/01/20 0250 Last Action: Continued on 05/01/20 1111 by ANNA OAKES MD Ferrous Sulfate (Feosol) 325 Mg Tablet, 1 TAB PO DAILY for anemia for 30 Days, #30 Ref 0 (Reported) Entered as Reported by: MONAE RING on 05/01/20 0422 Last Action: Continued on 05/01/20 1111 by ANNA OAKES MD Pantoprazole Sodium (Pantoprazole Sodium ) 40 Mg Tablet.dr, 40 MG PO DAILYAC for GERD for 30 Days, #30 Prescribed by: LISA WEBER MD on 05/02/20 1234 Potassium Chloride (Potassium Chloride ) 20 Meq Tablet.er, 20 MEQ PO DAILY08 for SUPPLEMENT, (Reported) Entered as Reported by: MONAE RING on 05/01/20 0250 Last Action: Continued on 05/01/20 1111 by ANNA OAKES MD Scheduled PRN Docusate Sodium (Docusate Sodium) 100 Mg Capsule, 1 CAP PO PRN DAILY PRN for CONSTIPATION for 30 Days, Ref 0 (Reported) Entered as Reported by: MONAE RING on 05/01/20 0422 Last Action: Continued on 05/01/20 1111 by ANNA OAKES MD Potassium Chloride (Klor-Con M20) 20 Meq Tab.er.prt, 20 MEQ PO PRN DAILY PRN for leg cramps, (Reported) Entered as Reported by: LINDA SALDANA on 03/09/14 0609 Last Action: HELD on 05/01/20 1111 by ANNA OAKES MD Discontinued Medications Amoxicillin (Amoxicillin) 500 Mg Capsule, 1 CAP PO Q8HRS for tooth infection for 10 Days, (Reported) Entered as Reported by: MONAE RING on 05/01/20 0424 Last Taken: Unknown Dose on 04/30/20 Last Action: HELD on 05/01/20 1111 by ANNA OAKES MD Hydrochlorothiazide (Hydrochlorothiazide Tablet) 12.5 Mg Tablet, 12.5 MG PO DAILY for diuretic, (Reported) Entered as Reported by: MONAE RING on 05/01/20 0250 Last Action: Converted on 05/01/20 1111 by ANNA OAKES MD Justicifation of Admission Dx: Justifications for Admission: Justification of Admission Dx: Yes Aspiration Pneumonia: Chronic Lung Disease Angina: [place] Worsening of Sym Hypertension: [place] Worsening of Sym LISA WEBER MD May 02, 2020 12:30
[2020-05-02] MEDS ORDERED: PANT40TA77 PO (12:34)
[2020-05-02] MEDS ORDERED: AMLO10TA8 PO (12:36)
--- NOTE | 2020-05-02 13:51 | NUR ---
SS following for discharge planning. SS reviewed pt chart and discussed with pt RN. Pt is from home with spouse and is currently on room air. Discharge order on the chart for home with self care.
--- NOTE | 2020-05-02 14:32 | PDOC ---
PROGRESS NOTES Subjective Subjective Feeling much better today with improvement in chest pain Objective Objective Vital Signs Date Time Temp Pulse Resp B/P (MAP) Pulse Ox O2 Delivery O2 Flow Rate FiO2 05/02/20 11:34 78 132/65 05/02/20 11:00 98.4 18 98 Room Air 98.4 Intake and Output 05/02/20 07:00 Intake Total 900 ml Output Total 1030 ml Balance -130 ml Intake Oral 900 ml Output Urine Total 1030 ml Physical Exam Abdomen: Soft, No tenderness Heart: Regular rate Extremities: No cyanosis General: Alert, Oriented X3, Cooperative, No acute distress HEENT: EOMI, Mucous membr. moist/pink Lungs: Clear to auscultation, Normal air movement MUSCULOSKELETAL: Full range of motion without pain, Osteoarthritic changes both hands Neuro: Normal speech, Cranial nerves 3-12 NL Psych/Mental Status: Mental status NL, Mood NL Assessment Assessment 1. Chest pain with mixed features. Myocardial infarction has been ruled out. She was diagnosed with coronary artery vasospasm in 2001. 2D echo in 2017 showed LVEF 55 to 60%. Lexiscan nuclear stress test did not show any significant ischemia. 2. Accelerated hypertension: Much better controlled with labetalol. Continue current medical regimen. 3. Hypokalemia: Replace orally Plan Plan of Care Problems Medical Problems: (1) Chest pain, rule out acute myocardial infarction Status: Acute (2) Elevated d-dimer Status: Acute Comment Review of Relevant I have reviewed the following items angel (where applicable) has been applied. Labs Laboratory Tests Test 05/02/20 10:28 Sodium Level 140 mmol/L (136-145) Potassium Level 3.2 mmol/L (3.5-5.1) Chloride Level 103 mmol/L (98-107) Carbon Dioxide Level 25 mmol/L (21-32) Anion Gap 12 (6-14) Blood Urea Nitrogen 9 mg/dL (7-20) Creatinine 1.1 mg/dL (0.6-1.0) Estimated GFR (Cockcroft-Gault) 58.6 Glucose Level 125 mg/dL (70-99) Calcium Level 9.2 mg/dL (8.5-10.1) Magnesium Level 1.9 mg/dL (1.8-2.4) Procalcitonin < 0.10 ng/mL (0.00-0.10) Medications Current Medications Acetaminophen (Tylenol) 650 mg PRN Q4HRS PRN PO TEMP OVER 100.4F OR MILD PAIN; Start 05/01/20 at 17:15 Albuterol Sulfate (Ventolin Neb Soln) 2.5 mg PRN Q4HRS PRN NEB SHORTNESS OF BREATH; Start 05/01/20 at 17:15 Clonidine HCl (Catapres) 0.1 mg PRN Q6HRS PRN PO SBP>160 OR DBP>90; Start 05/01/20 at 17:15 Diphenhydramine HCl (Benadryl) 25 mg PRN Q4HRS PRN IVP ITCHING; Start 05/01/20 at 17:15 Docusate Sodium (Colace) 100 mg PRN BID PRN PO HARD STOOLS; Start 05/01/20 at 17:15 Enoxaparin Sodium (Lovenox 40mg Syringe) 40 mg Q24H SQ Last administered on 04/12 11/30at 17:37; Start 05/01/20 at 18:00 Guaifenesin (Robitussin) 200 mg PRN Q4HRS PRN PO COUGH; Start 05/01/20 at 17:15 Lorazepam (Ativan) 0.5 mg PRN Q4HRS PRN PO ANXIETY / AGITATION; Start 05/01/20 at 17:15 Nitroglycerin (Nitrostat) 0.4 mg PRN Q5MIN PRN SL CHEST PAIN Last administered on 05/01/20at 17:38; Start 05/01/20 at 17:00 Ondansetron HCl (Zofran) 4 mg PRN Q4HRS PRN IV NAUSEA/VOMITING; Start 05/01/20 at 17:15 Pantoprazole Sodium (Protonix) 40 mg DAILYAC PO Last administered on 05/02/20at 10:08; Start 05/01/20 at 17:30 Potassium Chloride (Klor-Con) 40 meq 1X ONCE PO Last administered on 05/02/20at 13:54; Start 05/02/20 at 12:30; Stop 05/02/20 at 12:31; Status DC Potassium Chloride (Klor-Con) 40 meq 1222 ONCE PO Last administered on 05/02/20at 12:45; Start 05/02/20 at 12:22; Stop 05/02/20 at 12:29; Status DC Regadenoson (Lexiscan) 0.4 mg 1X ONCE IV Last administered on 05/02/20at 08:15; Start 05/02/20 at 08:15; Stop 05/02/20 at 08:16; Status DC Sodium Monofluorophosphate (Fleet Adult) 133 ml PRN DAILY PRN [place] CONSTIPATION; Start 05/01/20 at 17:15 Sodium Chloride (Normal Saline Flush) 3 ml QSHIFT PRN IV AFTER MEDS AND BLOOD DRAWS; Start 05/01/20 at 17:15 Zolpidem Tartrate (Ambien) 5 mg PRN QHS PRN PO INSOMNIA; Start 05/01/20 at 17:15 Vitals/I & O Vital Sign - Last 24 Hours 05/01/20 05/01/20 05/01/20 05/01/20 14:34 14:49 17:36 17:38 Temp 98.3 98.3 Pulse 66 63 74 Resp 19 18 B/P (MAP) 191/79 191/79 (116) 149/67 Pulse Ox 97 97 O2 Delivery Room Air Room Air 05/01/20 05/01/20 05/01/20 05/01/20 18:06 19:00 20:00 20:41 Temp 98.1 98.1 Pulse 78 Resp 18 18 B/P (MAP) 118/57 (77) Pulse Ox 97 97 96 O2 Delivery Room Air Room Air Room Air 05/01/20 05/01/20 05/02/20 05/02/20 22:40 23:00 02:35 07:00 Temp 97.9 97.5 97.9 97.9 97.5 97.9 Pulse 78 77 66 73 Resp 19 18 12 B/P (MAP) 118/57 115/63 (80) 99/54 (69) 123/60 (81) Pulse Ox 96 94 98 O2 Delivery Room Air Room Air Room Air 05/02/20 05/02/20 05/02/20 05/02/20 08:00 10:08 11:00 11:34 Temp 98.4 98.4 Pulse 76 85 78 Resp 18 B/P (MAP) 146/67 130/62 (84) 132/65 Pulse Ox 98 O2 Delivery Room Air Room Air Intake and Output 0 05/01/20 05/01/20 05/02/20 15:00 23:00 07:00 Intake Total 800 ml 100 ml Output Total 780 ml 250 ml Balance -780 ml 550 ml 100 ml EWA CHENG MD May 02, 2020 14:31
[2020-05-02 15:00] VITALS: BP 116/56
--- NOTE | 2020-05-02 15:10 | NUR ---
Discharge Note: LOUIS JHAVERI [address] [place] [address] Discharge instructions and discharge home medications reviewed with Patient and a copy given. All questions have been answered and understanding verbalized. The following instructions and handouts were given: discharge instructions, amlodipine info, protonix info, HTN info, hypotension info, hypokalemia info, CP info, follow ups. Discontinued lines and drains: Peripheral IV intact. Patient discharged to Home or Self Care with Spouse via Ambulated at 1510.
== END 2020-05-02 15:10 | disposition home or self-care (01) | DRG 204 ==
LOC: ER 23:36 → 2 SOUTH 05-01 01:59 → OBSVTOIN 05-01 17:56
PROVIDERS: ADMIT Family Medicine; ATTEND Family Medicine
DX: R07.81 Pleurodynia (principal); J98.11 Atelectasis; I16.0 Hypertensive urgency; E66.01 Morbid (severe) obesity due to excess calories; E78.5 Hyperlipidemia, unspecified; E87.6 Hypokalemia; I10 Essential (primary) hypertension; K44.9 Diaphragmatic hernia without obstruction or gangrene; K76.89 Other specified diseases of liver; M85.80 Other specified disorders of bone density and structure, unspecified site; K21.9 Gastro-esophageal reflux disease without esophagitis; M19.90 Unspecified osteoarthritis, unspecified site; Z82.49 Family history of ischemic heart disease and other diseases of the circulatory system; Z88.8 Allergy status to other drugs, medicaments and biological substances; Z90.710 Acquired absence of both cervix and uterus; Z68.33 Body mass index [BMI] 33.0-33.9, adult; Z79.899 Other long term (current) drug therapy
CPT/HCPCS: 36415; 71275; 78452; 80048; 80053; 80061; 81001; 82553; 83690; 83735; 83880; 84145; 84484; 85025; 85379; 85610; 85730; 93005; 93017; 93970; 96360; A9500; G0378; G0379; J1650; J2785; J3010; J7030; Q9967; 99285-25

== ENCOUNTER → 2020-10-04 | Outpatient (CLI) | payer MEDICARE ==
[~2020-10-04] MED LIST changes: +AMLO-187 PO; -AMLO10TA8 PO; +AMOX500C PO; +DOCU100C28 PO; +ERGO500027 PO; +FERR325T72 PO; +HYDR12.58 PO; +PANT40TA77 PO
--- NOTE | 2020-10-04 09:29 | RAD ---
DATE: 10/04/2020 7:45 AM EXAM: MAMMO TERRY SCREENING BILATERAL HISTORY: Screening COMPARISON: 09/30/2019 Bilateral CC and MLO views of the breasts were performed. Bilateral breast tomosynthesis was performed in CC and MLO projections. This study was interpreted with the benefit of Computerized Aided Detection (CAD). FINDINGS: Breast Density: FATTY The Breast Parenchyma is primarily fatty replaced. Breast parenchyma level density A. No suspicious masses, microcalcifications or architectural distortion is present to suggest malignancy in either breast. The visualized axillae are unremarkable. IMPRESSION: No mammographic evidence of malignancy. BI-RADS CATEGORY: 1 NEGATIVE RECOMMENDED FOLLOW-UP: 12M 12 MONTH FOLLOW-UP Annual screening mammography is recommended, unless clinically indicated sooner based on symptoms or change in physical exam. PQRS compliance statement: Patient information was entered into a reminder system with a target due date for the next mammogram. Mammography is a sensitive method for finding small breast cancers, but it does not detect them all and is not a substitute for careful clinical examination. A negative mammogram does not negate a clinically suspicious finding and should not result in delay in biopsying a clinically suspicious abnormality. "Our facility is accredited by the [employer] Mammography Program."
== END ==
LOC: MAMMO 07:42
PROVIDERS: ATTEND Family Medicine
DX: Z12.31 Encounter for screening mammogram for malignant neoplasm of breast (principal)
CPT/HCPCS: 77063; 77067

== ENCOUNTER → 2021-01-26 | Outpatient (CLI) | payer MEDICARE ==
--- NOTE | 2021-01-26 13:34 | CARD ---
MR#: [id number] Date of Study: 01/26/2021 Ordering Physician: EWA CHENG, Referring Physician: EWA CHENG Tech: Kassie Tom RDCS APPROVED REPORT EXAM: Two-dimensional and M-mode echocardiogram with Doppler and color Doppler. Other Information Quality : Fair INDICATION Coronary Artery Vasospasm RISK FACTORS Hypertension 2D DIMENSIONS RVDd2.7 (2.9-3.5cm)Left Atrium(2D)2.7 (1.6-4.0cm) IVSd1.1 (0.7-1.1cm)Aortic Root(2D)3.4 (2.0-3.7cm) LVDd4.5 (3.9-5.9cm)LVOT Diameter2.3 (1.8-2.4cm) PWd0.9 (0.7-1.1cm)LVDs2.3 (2.5-4.0cm) FS (%) 30.0 %SV75.5 ml LVEF(%)60.0 (>50%) Aortic Valve AoV Peak Zana.83.3cm/sAoV VTI17.0cm AO Peak GR.2.8mmHgLVOT Peak Zana.72.5cm/s AO Mean GR.2mmHgAVA (VMAX)3.74cm2 CHESTER (VTI)3.23vx2GH P 1/2 Eiqm715ks Mitral Valve MV E Mqmffwmw69.7cm/sMV DECEL DRHY905ie MV A Xwgjgtng10.7cm/sE/A Ratio0.7 Tricuspid Valve TR P. Pqquxnpf133yn/sRAP GZBBLHGZ8ypYs TR Peak Gr.70ngNwHIGN39mfTu Pulmonary Vein S1 Hwvcrzsl44.7cm/sD2 Gtgcagxe13.5cm/s LEFT VENTRICLE The left ventricle is normal size. There is normal left ventricular wall thickness. The left ventricu lar systolic function is normal and the ejection fraction is within normal range. EF 55% There is nor mal LV segmental wall motion. Transmitral Doppler flow pattern is Grade I-abnormal relaxation pattern . RIGHT VENTRICLE The right ventricle is normal size. The right ventricular systolic function is normal. ATRIA The left atrium size is normal. The right atrium size is normal. The interatrial septum is intact wit h no evidence for an atrial septal defect or patent foramen ovale as noted on 2-D or Doppler imaging. AORTIC VALVE The aortic valve is calcified but opens well. Doppler and Color Flow revealed mild aortic regurgitati on. There is no significant aortic valvular stenosis. MITRAL VALVE The mitral valve is calcified but opens well. There is no evidence of mitral valve prolapse. There is no mitral valve stenosis. Doppler and Color Flow revealed no mitral valve regurgitation noted. TRICUSPID VALVE The tricuspid valve is normal in structure and function. Doppler and Color Flow revealed trace to mil d tricuspid regurgitation. The PA pressure was estimated at 29 mmHg. There is no tricuspid valve sten osis. PULMONIC VALVE The pulmonic valve is not well visualized. Doppler and Color Flow revealed no pulmonic valvular regur gitation. There is no pulmonic valvular stenosis. GREAT VESSELS The aortic root is normal in size. The ascending aorta is normal in size. The IVC is normal in size a nd collapses >50% with inspiration. PERICARDIAL EFFUSION There is no evidence of significant pericardial effusion. Critical Notification Critical Value: No <Conclusion> The left ventricular systolic function is normal and the ejection fraction is within normal range. EF 55% There is normal LV segmental wall motion. Doppler and Color Flow revealed trace to mild tricuspid regurgitation. The PA pressure was estimated at 29 mmHg. Signed by : Orlando Campa, Electronically Approved : 01/26/2021 13:33:14
== END ==
LOC: ECHO 07:37
PROVIDERS: ATTEND Internal Medicine Cardiovascular Disease
DX: I20.1 Angina pectoris with documented spasm (principal); I08.3 Combined rheumatic disorders of mitral, aortic and tricuspid valves
CPT/HCPCS: 93306

== ENCOUNTER → 2021-10-09 | Outpatient (CLI) | payer MEDICARE ==
[~2021-10-09] MED LIST changes: -ERGO500027 PO; +ERGO500089 PO; +POTA-121 PO
--- NOTE | 2021-10-09 11:44 | RAD ---
BILATERAL SCREENING MAMMOGRAM History: Routine screening. Comparison: Most recently on 10/04/2020. Technique: Routine 2D and 3D tomosynthesis digital mammogram views were obtained bilaterally. Interpr etation was assisted with the use of computer-aided detection. Findings: Breast Tissue Density A : The breasts are almost entirely fatty. There are no dominant masses, suspicious microcalcifications, or architectural distortion. IMPRESSION: No mammographic evidence of malignancy. Recommend routine screening mammography in one year. BI-RADS category 1: Negative. Patient information is entered into the reminder system with a target due date for the next screening mammogram. "Our facility is accredited by the [employer] Mammography Program." Electronically signed by: THAO CAMPBELL MD (10/09/2021 11:41 AM) [id number]
== END ==
LOC: MAMMO 07:43
PROVIDERS: ATTEND Family Medicine
DX: Z12.31 Encounter for screening mammogram for malignant neoplasm of breast (principal)
CPT/HCPCS: 77063; 77067